=== PATIENT | female | born 1970 | race African-American/Black ===

== ENCOUNTER 2016-03-18 00:51 | Emergency (ER) | payer SELFPAY ==
[2016-03-18] MEDS ORDERED: Aspirin 325 MG TAB ONE (01:08)
[2016-03-18] MEDS ORDERED: Lorazepam 2 MG/ML VIAL ONE (01:08)
[2016-03-18] MEDS ORDERED: Ondansetron HCl/PF 4 MG/2 ML Vial ONE (01:08)
[2016-03-18 01:19] LABS: #Basophils 0.1 thou/uL (0.0-0.2); #Eosinphils 0.3 thou/uL (0.0-0.7); #Monocytes 0.4 thou/uL (0.11-0.59); #Neutrophils 4.2 thou/uL (1.40-6.50); %Eosinophils 3.6 % (0.0-10.0); %Lymphocytes 29.2 % (21.0-51.0); %Monocytes 6.2 % (0.0-10.0); Hematocrit 38.5 % (36.0-47.0); Mean Platelet Volume 8.8 fL (7.4-10.4); Red Blood Cell (RBC) Count 4.22 mill/uL (4.20-5.40)
[2016-03-18 01:37] LABS: Anion Gap 11 mmol/L (10-20); BUN (Urea Nitrogen) 12 mg/dL (7.0-18.7); Calc. Creatinine Clearance 0 mL/min (70-130); Carbon Dioxide 27 mmol/L (22-29); Chloride 106 mmol/L (98-107); Estimated GFR-MDRD 86
[2016-03-18 01:42] LABS: Troponin I Less than 0.010 ng/mL (< 0.028)
--- NOTE | 2016-03-18 02:20 | ERRECORD ---
[facility] HPI CHEST PAIN (01:08 RW) CHIEF COMPLAINT: Patient presents for evaluation of chest pain, ongoing, Patient presents for evaluation of seen here many times for same CC. HISTORIAN: History provided by patient. LOCATION: Symptoms are localized, most severe in substernal area. QUALITY: Described as similar to previous episodes. SEVERITY: Maximum severity of symptoms mild, Currently symptoms are mild, Maximum severity of pain rated as 7/10, Current severity of pain rated as 7/10. TIME COURSE: Patient unable to describe onset of symptoms, There has been no change in the patient's symptoms over time. ASSOCIATED WITH: Associated with nausea, Associated with vomiting. EXACERBATED BY: Patient's condition exacerbated by nothing. RELIEVED BY: Patient's condition relieved by nothing. ROS (01:09 RW) CONSTITUTIONAL: Negative constitutional review of systems. EYES: Negative eye review of systems. ENT: Negative ears, nose, throat review of systems. CARDIOVASCULAR: Historian reports chest pain. RESPIRATORY: Negative respiratory review of systems. GI: Negative gastrointestinal review of systems. GENITOURINARY FEMALE: Negative genitourinary review of systems. MUSCULOSKELETAL: Negative musculoskeletal review of systems. SKIN: Negative skin review of systems. NEUROLOGIC: Negative neurologic review of systems. ENDOCRINE: Negative endocrine review of systems. HEMO/LYMPHATIC: Normal hematologic/lymphatic system review. ALLERGIC/IMMUNOLOGIC: Normal allergy/immunologic system review. PSYCHIATRIC: Historian reports anxiety, reports depression, reports drug abuse. NOTES: All systems reviewed, negative except as described above. PAST MEDICAL HISTORY (01:43 MBOS) MEDICAL HISTORY: Past medical history includes history of human immunodeficiency virus, currently under treatment, Flu vaccine not up to date, Tetanus immunization up to date, Flu vaccine not up to date, : Hep, Past medical history includes gastrointestinal disease, gastroesophageal reflux disease, includes history of obesity, ,includes pulmonary disease, asthma. Past medical history includes history of human immunodeficiency virus, currently under treatment,. FEMALE SURGICAL HISTORY: Surgical history of section x2, Surgical history of LEFT oophorectomy. PSYCHIATRIC HISTORY: Psychiatric history includes, anxiety, depression, Psychiatric history includes previous inpatient &a-1R&a+25V*p+0X*[id number]*c202B*c15G*c2P*p-0X&a-25V&a+1R Name: HemingwayMindi : 1970 F45 MedRec: [id number] AcctNum: [id number] Prepared: Ivanna Mar 18, 2016 06:37 by Interface Page 1 of 3 pMD [facility] EMERGENCY RECORD psychiatric admissions.. Psychiatric history includes, bipolar disorder. SOCIAL HISTORY: Patient denies alcohol use, Patient denies drug use, Patient has no smoking history. KNOWN ALLERGIES No Known Allergies (Unconfirmed) No Known Drug Allergies CURRENT MEDICATIONS (00:59 BHAS) Pepcid: TABLET : Strength - 20 mg : ORAL Patient Dose: 1 tab(s) Oral 2 times a day (before meals). K-Dur: TABLET, EXT RELEASE, PARTICLES/CRYSTALS : Strength - 10 mEq : ORAL Patient Dose: 1 tab(s) Oral once a day (in the morning). Motrin: TABLET : Strength - 400 mg : ORAL Patient Dose: 1 tab(s) Oral every 6 hours PRN. Zofran ODT: TABLET,DISINTEGRATING : Strength - 4 mg : ORAL Patient Dose: 1 tab(s) Oral every 6 hours PRN. Flexeril: TABLET : Strength - 5 mg : ORAL Patient Dose: 1 tab(s) Oral every 8 hours PRN.TAKE NEEDED FOR MUSCLE PAIN OR SPASMS. Phenergan: TABLET : Strength - 25 mg : ORAL Patient Dose: 1 tab(s) Oral every 6 hours PRN. meclizine: CAPSULE : Strength - 25 mg : ORAL Patient Dose: 1 tab(s) Oral every 6 hours PRN. Medrol (Joel): TABLET, DOSE PACK : Strength - 4 mg : ORAL Patient Dose: 4 mg Oral See Notes. Keflex: CAPSULE : Strength - 250 mg : ORAL Patient Dose: 1 cap(s) Oral 4 times a day. Pepcid: TABLET : Strength - 40 mg : ORAL Patient Dose: 1 tab(s) Oral once a day (in the morning). Trileptal: TABLET : Strength - 300 mg : ORAL Patient Dose: Unknown.unknown dose. VITAL SIGNS (00:54 BHAS) VITAL SIGNS: BP: 140/74, Pulse: 81, Resp: 19, Temp: 99.3 (Oral), Pain: 6, O2 sat: 99, Time: 03/18/2016 00:54. PHYSICAL EXAM (01:10 RWAG) &a-1R&a+25V*p+0X*[id number]*c202B*c15G*c2P*p-0X&a-25V&a+1R Name: Mindi Santo : 1970 F45 MedRec: [id number] AcctNum: [id number] Prepared: Ivanna Mar 18, 2016 06:37 by Interface Page 2 of 3 pMD [facility] EMERGENCY RECORD CONSTITUTIONAL: Vital Signs Reviewed. HEAD: Head exam normal. EYES: Eye exam normal. ENT: ENT exam normal. NECK: Neck exam normal. RESPIRATORY CHEST: Respiratory and chest exam normal. CARDIOVASCULAR: Cardiovascular assessment normal. ABDOMEN FEMALE: Abdominal exam normal. BACK: Back exam normal. UPPER EXTREMITY: Upper extremity exam normal. LOWER EXTREMITY: Lower extremity exam normal. NEURO: Neuro exam normal. SKIN: Skin exam normal. LYMPHATIC: Lymphatic exam normal. PSYCHIATRIC: Psychiatric exam normal. EKG INTERPRETATION (:) 12 LEAD EKG INTERPRETATION: 12 lead EKG interpreted by Emergency Department Physician at time of study, 12 lead EKG shows normal sinus rhythm, Rate (beats per minute): 79, with no ectopics, Compared with previous EKG from, Interpretation: normal EKG, Conduction normal, ST segments normal, T waves, inverted, Leads affected: III, [place] normal. MEDICATION ADMINISTRATION SUMMARY Drug Name: aspirin oral, Dose Ordered: 324 mg, Route: Oral, Status: Given, Time: :03/18/2016, Drug Name: Ativan injection, Dose Ordered: 2 mg, Route: IV Push, Status: Given, Time: 03/18/2016, Drug Name: Zofran intravenous, Dose Ordered: 8 mg, Route: IV Push, Status: Given, Time: :03/18/2016, Detailed record available in Medication Service section. PROBLEM LIST No recorded problems DIAGNOSIS (: RW) FINAL: PRIMARY: Intercostal chest pain. PRESCRIPTION No recorded prescriptions DISPOSITION PATIENT: Disposition Type: Discharge, Disposition: *Discharge Home, Disposition Transport: Car, Condition: Improved. (:45 RW) Patient left the department. (02:13 MBOS) Beatty: BHAS=VENKAT Sheppard, Chris MBOS=VENKAT Hopkins, Harper RWAG=MD Keith, Toby &a-1R&a+25V*p+0X*[id number]*c202B*c15G*c2P*p-0X&a-25V&a+1R Name: Mindi Santo : 1970 F45 MedRec: [id number] AcctNum: [id number] Prepared: Ivanna Mar 18, 2016 06:37 by Interface Page 3 of 3 pMD MTDD
--- NOTE | 2016-03-18 02:23 | PICIS ---
[facility] EMERGENCY RECORD TRIAGE (SatMar 18, 2016 00:58 BHAS) PATIENT: NAME: Mindi Santo, AGE: 45, GENDER: female, : Sat1970, TIME OF GREET: SatMar 18, 2016 00:52, PREFERRED LANGUAGE: Latvian, ETHNICITY: Not or , ECODE BILLING MAP: [facility] ER, SSN: [id number], Zip Code: [address], KG WEIGHT: [phone], PHONE: , , , PERSON ID: [id number], PCP: Wilbur. (SatMar 18, 2016 00:58 BHAS) COMPLAINT: CHEST PAINS; NAUSEA. (SatMar 18, 2016 00:58 BHAS) ADMISSION: URGENCY: 3 Urgent, ADMISSION SOURCE: Home, TRANSPORT: CAR, BED: ER -03. (SatMar 18, 2016 00:58 BHAS) ASSESSMENT: Assessment: patient complaining of chest pain and abdominal pain. Patient states that one of her medications makes her feel bad. She is also expressing concern over her T-cell levels and wants to be checked for cancer. (01:43 MBOS) IMMUNIZATIONS: Flu vaccine not up to date, Tetanus not up to date, Pneumococcal vaccine not up to date. (01:43 MBOS) SIRS SCORING: Heart Rate 55-109 (0), Temp range 96.8-101.1 (0), respiratory rate 12-24 (0), Mental Status altered: no (0), Infection or Suspected Infection: No. (01:43 MBOS) PROVIDERS: TRIAGE NURSE: Chris Sheppard RN. (SatMar 18, 2016 00:58 BHAS) VITAL SIGNS: BP 140/74, Pulse 81, Resp 19, Temp 99.3, (Oral), Pain 6, O2 Sat 99, Time 03/18/2016 00:54. (00:54 BHAS) PREVIOUS VISIT ALLERGIES: No Known Drug Allergies. (SatMar 18, 2016 00:58 BHAS) No Known Drug Allergies. (01:43 MBOS) KNOWN ALLERGIES No Known Allergies (Unconfirmed) No Known Drug Allergies CURRENT MEDICATIONS (00:59 BHAS) Pepcid: TABLET : Strength - 20 mg : ORAL Patient Dose: 1 tab(s) Oral 2 times a day (before meals). K-Dur: TABLET, EXT RELEASE, PARTICLES/CRYSTALS : Strength - 10 mEq : ORAL Patient Dose: 1 tab(s) Oral once a day (in the morning). Motrin: TABLET : Strength - 400 mg : ORAL Patient Dose: 1 tab(s) Oral every 6 hours PRN. Zofran ODT: TABLET,DISINTEGRATING : Strength - 4 mg : ORAL Patient Dose: 1 tab(s) Oral every 6 hours PRN. Flexeril: TABLET : Strength - 5 mg : ORAL Patient Dose: 1 tab(s) Oral every 8 hours PRN.TAKE NEEDED FOR MUSCLE PAIN OR SPASMS. &a-1R&a+25V*p+0X*s0431C*c202B*c15G*c2P*p-0X&a-25V&a+1R Name: Mindi Santo : 1970 F45 MedRec: [id number] AcctNum: [id number] Prepared: Ivanna Mar 18, 2016 06:43 by Interface Page 1 of 9 pMD [facility] EMERGENCY RECORD Phenergan: TABLET : Strength - 25 mg : ORAL Patient Dose: 1 tab(s) Oral every 6 hours PRN. meclizine: CAPSULE : Strength - 25 mg : ORAL Patient Dose: 1 tab(s) Oral every 6 hours PRN. Medrol (Joel): TABLET, DOSE PACK : Strength - 4 mg : ORAL Patient Dose: 4 mg Oral See Notes. Keflex: CAPSULE : Strength - 250 mg : ORAL Patient Dose: 1 cap(s) Oral 4 times a day. Pepcid: TABLET : Strength - 40 mg : ORAL Patient Dose: 1 tab(s) Oral once a day (in the morning). Trileptal: TABLET : Strength - 300 mg : ORAL Patient Dose: Unknown.unknown dose. VITAL SIGNS (00:54 BHAS) VITAL SIGNS: BP: 140/74, Pulse: 81, Resp: 19, Temp: 99.3 (Oral), Pain: 6, O2 sat: 99, Time: 03/18/2016 00:54. NURSING ASSESSMENT: ABDOMEN (01:00 MBOS) ABDOMEN: Abdomen assessment findings include abdomen symmetrical, Abdomen soft, non-tender, Bowel sound normal, Associated with nausea, Associated with vomiting, history of vomiting, Number of times: 3. SAFETY: Side rails up, Cart/Stretcher in lowest position, Family at bedside, Call light within reach, Hospital ID band on. NURSING ASSESSMENT: RESPIRATORY /CHEST (01:00 MBOS) CONSTITUTIONAL: Patient arrives ambulatory, Gait steady, History obtained from patient, Patient appears comfortable, Patient cooperative, Patient alert, Oriented to person, place and time, Skin warm, Skin dry, Skin normal in color, Mucous membranes pink, Mucous membranes moist, Patient is well-groomed, Patient complains of chest pain, abdominal pain, vomiting, Ongoing symptoms. PAIN: on a scale 0-10 patient rates pain as 6. RESPIRATORY/CHEST: Breath sounds clear, Respiratory assessment findings include respiratory effort easy, Respirations regular, Conversing normally, Neck and chest exam findings include trachea midline, Chest expansion equal, Chest movement symmetrical, no signs of distress. ENT: Ear assessment findings include ear normal to inspection, Nasal assessment findings include nose normal to inspection, Mouth and throat assessment findings include mouth inspection normal. SAFETY: Side rails up, Cart/Stretcher in lowest position, Call light within reach, Hospital ID band on. &a-1R&a+25V*p+0X*p2217A*c202B*c15G*c2P*p-0X&a-25V&a+1R Name: Mindi Santo : 1970 F45 MedRec: [id number] AcctNum: [id number] Prepared: Ivanna Mar 18, 2016 06:43 by Interface Page 2 of 9 [facility] EMERGENCY RECORD NURSING PROCEDURE: BEDSIDE RADIOLOGY (01:39 CCRI) BEDSIDE RADIOLOGY: Bedside radiology performed by CC, Portable chest x-ray performed. NURSING PROCEDURE: DRUG ABUSE TREATMENT SPECIALIST (01:00 MBOS) PATIENT IDENTIFIER: Patient actively involved in identification process, Patient's identity verified by patient stating name, Patient's identity verified by patient stating date, Patient's identity verified by hospital ID bracelet. DRUG ABUSE TREATMENT SPECIALIST: Cardiac monitoring indicated for complaint of chest pain, Patient placed on secured entrance monitor, Patient placed on non-invasive blood pressure monitor, with disposable blood pressure cuff applied, Patient placed on continuous pulse oximetry, Adult/pediatric oxisensor applied, Oxygen saturation 99%. SAFETY: Side rails up, Cart/Stretcher in lowest position, Call light within reach, Hospital ID band on. NURSING PROCEDURE: DISCHARGE NOTE (01:57 MBOS) DISCHARGE: Patient discharged to home, ambulating without assistance, family driving, unaccompanied, Summary of Care printed/ provided, Discharge instructions given to patient, Simple or moderate discharge teaching performed, Above person(s) verbalized understanding of discharge instructions and follow-up care, Patient treated and evaluated by physician. NURSING PROCEDURE: EKG CHART (01:33 MBOS) PATIENT IDENTIFIER: Patient actively involved in identification process, Patient's identity verified by patient stating name, Patient's identity verified by patient stating date, Patient's identity verified by hospital ID bracelet. EKG: EKG indicated for complaint of chest pain, 12 lead EKG performed on the left chest, done by VENKAT Perez, first EKG. FOLLOW-UP: After procedure, EKG for interpretation given to Dr. Parker. SAFETY: Side rails up, Cart/Stretcher in lowest position, Call light within reach, Hospital ID band on. ORDER DETAILS Order Name: B type Natriuretic Peptide, Status: Active, Time: 01:05 03/18/2016, User: VIKY, - Ordered for: MD Parker Richard, - Entered by: MD Parker Richard - Ivanna Mar 18, 2016 01:05, - Quantity: 1, Order Name: Basic Metabolic Panel, Status: Active, Time: 01:05 03/18/2016, User: VIKY, - Ordered for: MD Parker Richard, - Entered by: MD Parker Richard - Ivanna Mar 18, 2016 01:05, - Quantity: 1, Order Name: Cardiac Profile w/CKMB & Troponin - I, Status: Active, &a-1R&a+25V*p+0X*x3533J*c202B*c15G*c2P*p-0X&a-25V&a+1R Name: Hansa Mindi F : 1970 F45 MedRec: [id number] AcctNum: [id number] Prepared: Ivanna Mar 18, 2016 06:43 by Interface Page 3 of 9 pMD [facility] EMERGENCY RECORD Time: 01:05 03/18/2016, User: VIKY, - Ordered for: MD Parker Richard, - Entered by: MD Parker Richard - [place] Mar 18, 2016 01:05, - Quantity: 1, Order Name: CBC with Differential, Status: Active, Time: 01:05 03/18/2016, User: VIKY, - Ordered for: MD Parker Richard, - Entered by: MD Parker Richard - [place] Mar 18, 2016 01:05, - Quantity: 1, Order Name: EKG 12 Lead in Emergency Room, Status: Active, Time: 01:05 03/18/2016, User: VIKY, - Ordered for: MD Parker Richard, - Entered by: MD Parker Richard - [place] Mar 18, 2016 01:05, - Quantity: 1, Order Name: SALINE LOCK, Status: Done, Time: :18 03/18/2016, User: ARTIE, - Ordered for: MD Parker Richard, - Entered by: MD Parker Richard - [place] Mar 18, 2016 01:05, - Quantity: 1, Order Name: XR Chest 1 View Portable, Status: Active, Time: 01:05 03/18/2016, User: VIKY, - Ordered for: MD Parker Richard, - Entered by: MD Parker Richard - [place] Mar 18, 2016 01:05, - Quantity: 1. MEDICATION ADMINISTRATION SUMMARY Drug Name: aspirin oral, Dose Ordered: 324 mg, Route: Oral, Status: Given, Time: :18 03/18/2016, Drug Name: Ativan injection, Dose Ordered: 2 mg, Route: IV Push, Status: Given, Time: 18 03/18/2016, Drug Name: Zofran intravenous, Dose Ordered: 8 mg, Route: IV Push, Status: Given, Time: :18 03/18/2016, Detailed record available in Medication Service section. MEDICATION SERVICE ( [facility]) aspirin oral: Order: aspirin oral (aspirin) - Dose: 324 mg : Oral Schedule: Now Ordered by: Toby Parker MD Entered by: MD Ivanna Harris Mar 18, 2016 01:06 , Acknowledged by: VENKAT Salinas Mar 18, 2016 01:07 Documented as given by: VENKAT Salinas Mar 18, 2016 01:18 Patient, Medication, Dose, Route and Time verified prior to administration. Amount given: 325mg, Site: Medication administered P.O., Correct patient, time, route, dose and medication confirmed prior to administration, Patient advised of actions and side-effects prior to administration, Allergies confirmed and medications reviewed prior to administration, Patient tolerated procedure well, Friend at bedside. &a-1R&a+25V*p+0X*w4839J*c202B*c15G*c2P*p-0X&a-25V&a+1R Name: Mindi Santo : 1970 F45 MedRec: [id number] AcctNum: [id number] Prepared: Ivanna Mar 18, 2016 06:43 by Interface Page 4 of 9 pMD [facility] EMERGENCY RECORD Ativan injection: Order: Ativan injection (lorazepam) - Dose: 2 mg : IV Push Schedule: Now Ordered by: Toby Parker MD Entered by: MD Ivanna Harris Mar 18, 2016 01:07 , Acknowledged by: VENKAT Salinas Mar 18, 2016 01:08 Documented as given by: VENKAT Salinas Mar 18, 2016 01:18 Patient, Medication, Dose, Route and Time verified prior to administration. Amount given: 2mg, IV SITE #1 IVP, initial medication, Slowly, Awake and alert- acceptable, Catheter placement confirmed via flush prior to administration, IV site without signs or symptoms of infiltration during medication administration, No swelling during administration, No drainage during administration, IV flushed after administration, Correct patient, time, route, dose and medication confirmed prior to administration, Patient advised of actions and side-effects prior to administration, Allergies confirmed and medications reviewed prior to administration, Patient tolerated procedure well, Patient in position of comfort, Side rails up, Cart in lowest position, Family at bedside. Zofran intravenous: Order: Zofran intravenous (ondansetron HCl) - Dose: 8 mg : IV Push Schedule: Now Ordered by: Toby Parker MD Entered by: MD Ivanna Harris Mar 18, 2016 01:07 , Acknowledged by: VENKAT Salinas Mar 18, 2016 01:07 Documented as given by: VENKAT Salinas Mar 18, 2016 01:18 Patient, Medication, Dose, Route and Time verified prior to administration. Amount given: 8mg, IV SITE #1 IVP, initial medication, Slowly, Catheter placement confirmed via flush prior to administration, IV site without signs or symptoms of infiltration during medication administration, No swelling during administration, No drainage during administration, IV flushed after administration, Correct patient, time, route, dose and medication confirmed prior to administration, Patient advised of actions and side-effects prior to administration, Allergies confirmed and medications reviewed prior to administration, Patient tolerated procedure well, Patient in position of comfort, Side rails up, Cart in lowest position, Family at bedside. HPI CHEST PAIN (:08 [facility]) CHIEF COMPLAINT: Patient presents for evaluation of chest pain, ongoing, Patient presents for evaluation of seen here many times for same CC. HISTORIAN: History provided by patient. LOCATION: Symptoms are localized, most severe in substernal area. QUALITY: Described as similar to previous episodes. SEVERITY: Maximum severity of symptoms mild, Currently symptoms are mild, Maximum severity of pain &a-1R&a+25V*p+0X*u1754G*c202B*c15G*c2P*p-0X&a-25V&a+1R Name: Mindi Santo : 1970 F45 MedRec: [id number] AcctNum: [id number] Prepared: Ivanna Mar 18, 2016 06:43 by Interface Page 5 of 9 pMD [facility] EMERGENCY RECORD rated as 7/10, Current severity of pain rated as 7/10. TIME COURSE: Patient unable to describe onset of symptoms, There has been no change in the patient's symptoms over time. ASSOCIATED WITH: Associated with nausea, Associated with vomiting. EXACERBATED BY: Patient's condition exacerbated by nothing. RELIEVED BY: Patient's condition relieved by nothing. ROS (:09 [facility]) CONSTITUTIONAL: Negative constitutional review of systems. EYES: Negative eye review of systems. ENT: Negative ears, nose, throat review of systems. CARDIOVASCULAR: Historian reports chest pain. RESPIRATORY: Negative respiratory review of systems. GI: Negative gastrointestinal review of systems. GENITOURINARY FEMALE: Negative genitourinary review of systems. MUSCULOSKELETAL: Negative musculoskeletal review of systems. SKIN: Negative skin review of systems. NEUROLOGIC: Negative neurologic review of systems. ENDOCRINE: Negative endocrine review of systems. HEMO/LYMPHATIC: Normal hematologic/lymphatic system review. ALLERGIC/IMMUNOLOGIC: Normal allergy/immunologic system review. PSYCHIATRIC: Historian reports anxiety, reports depression, reports drug abuse. NOTES: All systems reviewed, negative except as described above. PAST MEDICAL HISTORY (01:43 MBOS) MEDICAL HISTORY: Past medical history includes history of human immunodeficiency virus, currently under treatment, Flu vaccine not up to date, Tetanus immunization up to date, Flu vaccine not up to date, : Hep, Past medical history includes gastrointestinal disease, gastroesophageal reflux disease, includes history of obesity, ,includes pulmonary disease, asthma. Past medical history includes history of human immunodeficiency virus, currently under treatment,. FEMALE SURGICAL HISTORY: Surgical history of section x2, Surgical history of LEFT oophorectomy. PSYCHIATRIC HISTORY: Psychiatric history includes, anxiety, depression, Psychiatric history includes previous inpatient psychiatric admissions.. Psychiatric history includes, bipolar disorder. SOCIAL HISTORY: Patient denies alcohol use, Patient denies drug use, Patient has no smoking history. PHYSICAL EXAM (01:10 RWAG) CONSTITUTIONAL: Vital Signs Reviewed. HEAD: Head exam normal. EYES: Eye exam normal. ENT: ENT exam normal. &a-1R&a+25V*p+0X*y3171Y*c202B*c15G*c2P*p-0X&a-25V&a+1R Name: Mindi Santo : 1970 F45 MedRec: [id number] AcctNum: [id number] Prepared: Ivanna Mar 18, 2016 06:43 by Interface Page 6 of 9 pMD [facility] EMERGENCY RECORD NECK: Neck exam normal. RESPIRATORY CHEST: Respiratory and chest exam normal. CARDIOVASCULAR: Cardiovascular assessment normal. ABDOMEN FEMALE: Abdominal exam normal. BACK: Back exam normal. UPPER EXTREMITY: Upper extremity exam normal. LOWER EXTREMITY: Lower extremity exam normal. NEURO: Neuro exam normal. SKIN: Skin exam normal. LYMPHATIC: Lymphatic exam normal. PSYCHIATRIC: Psychiatric exam normal. EVENTS TRANSFER: Triage to Emergency Emergency Room -03. (00:58 BHAS) Removed from Emergency Emergency Room -03. (02:13 MBOS) EKG INTERPRETATION (:11 RWAG) 12 LEAD EKG INTERPRETATION: 12 lead EKG interpreted by Emergency Department Physician at time of study, 12 lead EKG shows normal sinus rhythm, Rate (beats per minute): 79, with no ectopics, Compared with previous EKG from, Interpretation: normal EKG, Conduction normal, ST segments normal, T waves, inverted, Leads affected: III, [place] normal. PROBLEM LIST No recorded problems DIAGNOSIS (01:45 RWAG) FINAL: PRIMARY: Intercostal chest pain. DISPOSITION PATIENT: Disposition Type: Discharge, Disposition: *Discharge Home, Disposition Transport: Car, Condition: Improved. (01:45 RWAG) Patient left the department. (02:13 MBOS) INSTRUCTION (01:46 RWAG) FOLLOWUP: Follow up with Primary Care Physician in 2-3 days. SPECIAL: Follow-up with your PCP Tylenol or Advil for Pain. PRESCRIPTION No recorded prescriptions IMAGING *DISCHARGE INSTRUCTIONS RECEIPT: Image captured from scanner. (02:12 MBOS) *SUPPLY CHARGE SHEET: Image captured from scanner. (02:13 MBOS) ADMIN (06:32 RWAG) DIGITAL SIGNATURE: MD Parker Richard. &a-1R&a+25V*p+0X*c3719F*c202B*c15G*c2P*p-0X&a-25V&a+1R Name: Mindi Santo : 1970 F45 MedRec: [id number] AcctNum: [id number] Prepared: Ivanna Mar 18, 2016 06:43 by Interface Page 7 of 9 pMD [facility] EMERGENCY RECORD RESULTS LABORATORY: CBC with Differential Collection DT: Ivanna Mar 18, 2016 01:18, White Blood Cell (WBC) Count 7.0 thou/uL, Range (4.8-10.8), Red Blood Cell (RBC) Count 4.22 mill/uL, Range (4.20-5.40), Hemoglobin 12.6 g/dL, Range (12.0-16.0), Hematocrit 38.5 %, Range (36.0-47.0), Mean Corpuscular Volume 91.4 fl, Range (81.0-99.0), Mean Corpuscular Hemoglobin 29.9 pg, Range (27.0-31.0), Mean Corpuscular HGB CONC 32.7 g/dL, Range (32.0-36.0), RBC Distribution Width 12.6 %, Range (11.5-14.5), Platelet Count 262 thou/uL, Range (130-400), Mean Platelet Volume 8.8 fL, Range (7.4-10.4), %Neutrophils 60.0 %, Range (42.0-75.0), %Lymphocytes 29.2 %, Range (21.0-51.0), %Monocytes 6.2 %, Range (0.0-10.0), %Eosinophils 3.6 %, Range (0.0-10.0), %Basophils 1.0 %, Range (0.0-1.0), #Neutrophils 4.2 thou/uL, Range (1.40-6.50), #Lymphocytes 2.0 thou/uL, Range (1.20-3.40), #Monocytes 0.4 thou/uL, Range (0.11-0.59), #Eosinphils 0.3 thou/uL, Range (0.0-0.7), #Basophils 0.1 thou/uL, Range (0.0-0.2). (01:34 [facility]) Basic Metabolic Panel Collection DT: [place] Mar 18, 2016 01:18, Sodium 140 mmol/L, Range (136-145), Potassium 3.7 mmol/L, Range (3.5-5.1), Chloride 106 mmol/L, Range (98-107), Carbon Dioxide 27 mmol/L, Range (22-29), Anion Gap 11 mmol/L, Range (10-20), BUN (Urea Nitrogen) 12 mg/dL, Range (7.0-18.7), Creatinine 0.86 mg/dL, Range (0.6-1.1), Estimated GFR-MDRD 86 , Reference Range for Estimated GFR: Greater than 90, mL/min/1.73 m2 NOTE: The MDRD equation has not been validated for use, with the elderly (over 70 years of age), women, patients with, serious comorbid condition or persons with extremes of body size, muscle, mass, or nutritional status. , *Glucose 114 - H mg/dL, Range (70-105), Calcium 9.0 mg/dL, Range (7.8-10.44). (01:39 [facility]) Cardiac Profile w/CKMB & TropI Collection DT: [place] Mar 18, 2016 01:18, CKMB 0.8 ng/mL, Range (0-6.6), Troponin I Less than 0.010 ng/mL, Range (< 0.028), Reference Range , 0.00 - 0.028 ng/mL Negative 0.029 - 0.29 ng/mL , Indeterminate Greater or Equal to 0.3 ng/mL Strongly suggests [place] &a-1R&a+25V*p+0X*w1418Q*c202B*c15G*c2P*p-0X&a-25V&a+1R Name: Mindi Santo : 1970 5 MedRec: [id number] AcctNum: [id number] Prepared: Ivanna Mar 18, 2016 06:43 by Interface Page 8 of 9 pMD [facility] EMERGENCY RECORD , . (01:44 RWAG) B type Natriuretic Peptide Collection DT: Ivanna Mar 18, 2016 01:18, B type Natriuretic Peptide Less than 10.0 pg/mL, Range (0-100). (01:49 RWAG) Beat[place]: BHAS=VENKAT Sheppard, Chris CCRI=CHRIS Lance Clemente MBOS=VENKAT Hopkins Marie RWAG=MD Keith, Toby &a-1R&a+25V*p+0X*n7177A*c202B*c15G*c2P*p-0X&a-25V&a+1R Name: Mindi Santo : 1970 5 MedRec: [id number] AcctNum: [id number] Prepared: Ivanna Mar 18, 2016 06:43 by Interface Page 9 of 9 pMD MTDD
--- NOTE | 2016-03-18 08:45 | RAD ---
EXAM: ONE VIEW CHEST: HISTORY: Chest pain. COMPARISON: 01/17/15, 10/14/15. FINDINGS: Normal cardiac silhouette. The pulmonary vessels and pulmonary hilum are normal. Costophrenic angl es are clear. No masses or consolidation. No pneumothorax or osseous abnormalities. IMPRESSION: No acute cardiopulmonary process. POS: [facility]
== END 2016-03-18 01:57 | disposition home or self-care (01) ==
LOC: NAV ERS 00:51
DX: R07.82 Intercostal pain (principal); Z21 Asymptomatic human immunodeficiency virus [HIV] infection status; K21.9 Gastro-esophageal reflux disease without esophagitis; E66.9 Obesity, unspecified; J45.909 Unspecified asthma, uncomplicated; F41.9 Anxiety disorder, unspecified; F31.9 Bipolar disorder, unspecified
CPT/HCPCS: 36415; 71010; 80048; 82553; 83880; 84484; 85025; 93005; 96374; 96375; J2060; J2405

== ENCOUNTER 2016-05-06 09:07 | Emergency (ER) | payer SELFPAY | END 2016-05-06 09:41 | disposition home or self-care (01) | LOC: NAV ERS 09:07 | DX: M77.11 Lateral epicondylitis, right elbow (principal); R05 Cough; M54.5 Low back pain; K21.9 Gastro-esophageal reflux disease without esophagitis; E66.9 Obesity, unspecified; J45.909 Unspecified asthma, uncomplicated; F31.9 Bipolar disorder, unspecified; Z79.899 Other long term (current) drug therapy | CPT/HCPCS: 99283 ==

== ENCOUNTER 2016-08-06 09:57 | Emergency (ER) | payer SELFPAY ==
[2016-08-06 11:11] LABS: CKMB 0.9 ng/mL (0-6.6); Troponin I Less than 0.010 ng/mL (< 0.028)
[2016-08-06 11:16] LABS: ALT (SGPT) 17 U/L (8-55); AST (SGOT) 17 U/L (5-34); Albumin 3.9 g/dL (3.5-5.0); Alkaline Phosphatase 84 U/L (40-150); Anion Gap 16 mmol/L (10-20); BUN (Urea Nitrogen) 9 mg/dL (7.0-18.7); Bilirubin, Total 0.5 mg/dL (0.2-1.2); Calc. Creatinine Clearance 0 mL/min (70-130); Carbon Dioxide 26 mmol/L (22-29); Chloride 103 mmol/L (98-107); Estimated GFR-MDRD Greater than 90; Globulin 3.7 g/dL (2.4-3.5); Glucose 94 mg/dL (70-105); Potassium 3.7 mmol/L (3.5-5.1); Protein, Total 7.6 g/dL (6.0-8.3); Sodium 141 mmol/L (136-145)
[2016-08-06 11:22] LABS: Hemoglobin 12.6 g/dL (12.0-16.0); Mean Corpuscular HGB CONC 33.4 g/dL (32.0-36.0); Mean Corpuscular Hemoglobin 29.1 pg (27.0-31.0); Mean Platelet Volume 8.3 fL (7.4-10.4); Platelet Count 251 thou/uL (130-400); RBC Distribution Width 12.2 % (11.5-14.5); Red Blood Cell (RBC) Count 4.33 mill/uL (4.20-5.40); White Blood Cell (WBC) Count 8.2 thou/uL (4.8-10.8)
[2016-08-06 11:23] LABS: Lymphocytes 26 % (21-51); MDiff Complete? YES; Monocytes 7 % (0-10); Neutrophil 67 % (42-75); PLT Morphology Comment Appears Adequate
--- NOTE | 2016-08-06 12:48 | RAD ---
CHEST 2 VIEWS: HISTORY: Headache and chest wall pain. COMPARISON: Chest 1 view 03/18/16. FINDINGS: Lungs are clear. No pneumothorax or effusion. Cardiac silhouette and mediastinal contours are with in normal limits. IMPRESSION: No acute cardiopulmonary process. POS: [facility]
== END 2016-08-06 12:00 | disposition home or self-care (01) ==
LOC: NAV ERS 09:57
DX: S29.011A Strain of muscle and tendon of front wall of thorax, initial encounter (principal); K21.9 Gastro-esophageal reflux disease without esophagitis; J45.909 Unspecified asthma, uncomplicated; F31.9 Bipolar disorder, unspecified; F41.9 Anxiety disorder, unspecified; Z21 Asymptomatic human immunodeficiency virus [HIV] infection status; Z79.899 Other long term (current) drug therapy; X50.0XXA Overexertion from strenuous movement or load, initial encounter
CPT/HCPCS: 71020; 80053; 82553; 83880; 84484; 85025; 93005

== ENCOUNTER 2016-08-22 00:18 | Emergency (ER) | payer SELFPAY ==
[2016-08-22 00:50] LABS: Clarity Clear (Clear); Glucose, Urine (Dipstick) Negative (Negative); Leukocyte Negative (Negative); Nitrite Negative (Negative); Protein, Urine (Dipstick) Negative (Neg-Trace); Specific Gravity, Urine 1.015 (1.005-1.030)
[2016-08-22 00:51] LABS: Bacteria/HPF None Seen HPF (None Seen); Bilirubin Negative (Negative); Blood, Urine Small (Negative); WBC/HPF None Seen HPF (0-3)
[2016-08-22 01:06] LABS: #Basophils 0.1 thou/uL (0.0-0.2); #Eosinphils 0.2 thou/uL (0.0-0.7); #Lymphocytes 1.6 thou/uL (1.20-3.40); #Monocytes 0.5 thou/uL (0.11-0.59); #Neutrophils 5.5 thou/uL (1.40-6.50); %Basophils 0.7 % (0.0-1.0); %Eosinophils 3.1 % (0.0-10.0); %Lymphocytes 20.2 % (21.0-51.0); %Monocytes 6.5 % (0.0-10.0); %Neutrophils 69.6 % (42.0-75.0); Hemoglobin 11.9 g/dL (12.0-16.0); Mean Corpuscular HGB CONC 32.1 g/dL (32.0-36.0); Mean Corpuscular Hemoglobin 28.7 pg (27.0-31.0); Mean Corpuscular Volume 89.3 fl (81.0-99.0); Mean Platelet Volume 8.3 fL (7.4-10.4); Platelet Count 173 thou/uL (130-400); RBC Distribution Width 12.6 % (11.5-14.5); Red Blood Cell (RBC) Count 4.17 mill/uL (4.20-5.40); White Blood Cell (WBC) Count 7.9 thou/uL (4.8-10.8)
[2016-08-22] MEDS ORDERED: Prochlorperazine 10 MG/2 ML VIAL ONE (01:18)
[2016-08-22] MEDS ORDERED: Cyclobenzaprine 10 MG TAB ONE (01:18)
[2016-08-22] MEDS ORDERED: diphenhydrAMINE HCl 50 MG/ML 1 ML VIAL ONE (01:19)
[2016-08-22] MEDS ORDERED: Ketorolac Tromethamine 30 MG/ML VIAL ONE (01:19)
[2016-08-22] MEDS ORDERED: Sodium Chloride 0.9% 1,000 ML ONE (01:23)
[2016-08-22] MEDS ORDERED: Acetaminophen 500 MG TAB ONE (01:25)
[2016-08-22 01:31] LABS: ALT (SGPT) 11 U/L (8-55); AST (SGOT) 16 U/L (5-34); Albumin 3.1 g/dL (3.5-5.0); Alkaline Phosphatase 61 U/L (40-150); BUN (Urea Nitrogen) 8 mg/dL (7.0-18.7); Bilirubin, Total 0.5 mg/dL (0.2-1.2); Calc. Creatinine Clearance 0 mL/min (70-130); Calcium 7.1 mg/dL (7.8-10.44); Carbon Dioxide 22 mmol/L (22-29); Estimated GFR-MDRD Greater than 90; Globulin 4.1 g/dL (2.4-3.5); Glucose 90 mg/dL (70-105); Protein, Total 7.2 g/dL (6.0-8.3)
[2016-08-22 01:45] LABS: Pregnancy Test - Urine (BHCG) Negative (NEGATIVE); Pregu Control Background? CLEAR/WHITE (CLR/WHITE); Pregu Control Bar Appear? YES (CONTROL BAR); Specific Gravity 1.015 (1.002-1.036)
[2016-08-22 01:54] LABS: Chloride 104 mmol/L (98-107); Potassium 3.4 mmol/L (3.5-5.1)
[2016-08-22 01:57] LABS: Sodium 137 mmol/L (136-145)
[2016-08-22 01:58] LABS: Anion Gap 14 mmol/L (10-20)
== END 2016-08-22 02:45 | disposition home or self-care (01) ==
LOC: NAV ERS 00:18
DX: R51 Headache (principal); R11.10 Vomiting, unspecified; M54.9 Dorsalgia, unspecified; G89.29 Other chronic pain; B20 Human immunodeficiency virus [HIV] disease; K21.9 Gastro-esophageal reflux disease without esophagitis; E66.9 Obesity, unspecified; J45.909 Unspecified asthma, uncomplicated; F41.9 Anxiety disorder, unspecified; F31.9 Bipolar disorder, unspecified; Z79.899 Other long term (current) drug therapy
CPT/HCPCS: 36415; 80053; 81003; 81015; 81025; 85025; 96361; 96374; 96375; J0780; J1200; J1885; J7050

== ENCOUNTER 2016-09-08 11:58 | Emergency (ER) | payer SELFPAY ==
[2016-09-08] MEDS ORDERED: Ondansetron ODT 4 MG TAB ONE (12:31)
[2016-09-08 12:34] LABS: Bilirubin Negative (Negative); Blood, Urine Trace (Negative); Clarity Clear (Clear); Glucose, Urine (Dipstick) Negative (Negative); Leukocyte Negative (Negative); Nitrite Negative (Negative); Protein, Urine (Dipstick) Negative (Neg-Trace)
[2016-09-08 12:49] LABS: Bacteria/HPF None Seen HPF (None Seen); Crystals/HPF RARE AMORPH URATES HPF (Negative); RBC/HPF 0-3 HPF (0-3); WBC/HPF None Seen HPF (0-3)
--- NOTE | 2016-09-08 14:19 | RAD ---
SINUSES THREE VIEWS HISTORY: Cough. Sinus pain and pressure. FINDINGS: The frontal sinuses are somewhat hypoplastic. Barker' view is somewhat underpenetrated, but I see n o fluid or mucosal change within the maxillary sinuses. IMPRESSION: Unremarkable sinus series. POS: [facility]
== END 2016-09-08 13:20 | disposition home or self-care (01) ==
LOC: NAV ERS 11:58
DX: S16.1XXA Strain of muscle, fascia and tendon at neck level, initial encounter (principal); S39.011A Strain of muscle, fascia and tendon of abdomen, initial encounter; J20.9 Acute bronchitis, unspecified; R11.2 Nausea with vomiting, unspecified; B20 Human immunodeficiency virus [HIV] disease; K21.9 Gastro-esophageal reflux disease without esophagitis; E66.9 Obesity, unspecified; J45.909 Unspecified asthma, uncomplicated; F41.9 Anxiety disorder, unspecified; F31.9 Bipolar disorder, unspecified; X58.XXXA Exposure to other specified factors, initial encounter
CPT/HCPCS: 36416; 70220; 81003; 81015; Q0162

== ENCOUNTER 2016-09-14 22:32 | Emergency (ER) | payer SELFPAY ==
[2016-09-14 23:13] LABS: #Basophils 0.1 thou/uL (0.0-0.2); #Eosinphils 0.2 thou/uL (0.0-0.7); #Lymphocytes 1.8 thou/uL (1.20-3.40); #Monocytes 0.4 thou/uL (0.11-0.59); #Neutrophils 4.5 thou/uL (1.40-6.50); %Basophils 0.8 % (0.0-1.0); %Eosinophils 3.1 % (0.0-10.0); %Lymphocytes 25.7 % (21.0-51.0); %Monocytes 6.1 % (0.0-10.0); %Neutrophils 64.4 % (42.0-75.0); Hemoglobin 11.8 g/dL (12.0-16.0); Mean Corpuscular HGB CONC 33.2 g/dL (32.0-36.0); Mean Corpuscular Hemoglobin 29.4 pg (27.0-31.0); Mean Corpuscular Volume 88.4 fl (81.0-99.0); Mean Platelet Volume 8.2 fL (7.4-10.4); Platelet Count 211 thou/uL (130-400); RBC Distribution Width 12.6 % (11.5-14.5); Red Blood Cell (RBC) Count 4.02 mill/uL (4.20-5.40)
[2016-09-14] MEDS ORDERED: Acetaminophen 500 MG TAB ONE (23:18)
[2016-09-14] MEDS ORDERED: Sodium Chloride 0.9% 1,000 ML ONE (23:18)
[2016-09-14] MEDS ORDERED: Metoclopramide HCl 10 MG/2 ML VIAL ONE (23:18)
[2016-09-14] MEDS ORDERED: Pantoprazole 40 MG VIAL ONE (23:18)
[2016-09-14] MEDS ORDERED: diphenhydrAMINE HCl 50 MG/ML 1 ML VIAL ONE (23:18)
[2016-09-14 23:31] LABS: Anion Gap 13 mmol/L (10-20); BUN (Urea Nitrogen) 10 mg/dL (7.0-18.7); Calc. Creatinine Clearance 0 mL/min (70-130); Carbon Dioxide 25 mmol/L (22-29); Chloride 105 mmol/L (98-107); Estimated GFR-MDRD 88; Glucose 131 mg/dL (70-105); Potassium 3.1 mmol/L (3.5-5.1); Sodium 140 mmol/L (136-145)
--- NOTE | 2016-09-14 23:35 | CT ---
CT BRAIN 09/14/16 PROVIDED CLINICAL HISTORY: Headache. FINDINGS: Comparison 10/14/15. The ventricular system is normal in size and morphology. There is no evidence for intracranial hemor rhage or mass effect. The extracranial soft tissues and osseous structures demonstrate no acute abno rmality. IMPRESSION: No evidence for intracranial hemorrhage or mass effect. POS: [facility]
--- NOTE | 2016-09-14 23:37 | RAD ---
TWO VIEWS CHEST 09/14/16 PROVIDED CLINICAL HISTORY: Cough. FINDINGS: 08/06/16 The cardiac and mediastinal silhouette is within normal limits. No focal consolidation, pleural flu id or pneumothorax apparent. IMPRESSION: No definite evidence for an acute cardiopulmonary process. POS: [facility]
[2016-09-14] MEDS ORDERED: Potassium Chloride 20 MEQ TAB ONE (23:46)
== END 2016-09-15 00:55 | disposition home or self-care (01) ==
LOC: NAV ERS 22:32
DX: J20.9 Acute bronchitis, unspecified (principal); R51 Headache; B20 Human immunodeficiency virus [HIV] disease; K21.9 Gastro-esophageal reflux disease without esophagitis; E66.9 Obesity, unspecified; J45.909 Unspecified asthma, uncomplicated; F41.9 Anxiety disorder, unspecified; F31.9 Bipolar disorder, unspecified
CPT/HCPCS: 36415; 70450; 71020; 80048; 85025; 96361; 96374; 96375; C9113; J1200; J2765; J7050

== ENCOUNTER 2016-11-03 08:57 | Emergency (ER) | payer SELFPAY ==
--- NOTE | 2016-11-03 12:02 | CT ---
CT LUMBAR SPINE NONCONTRAST: CLINICAL HISTORY: Low back pain. FINDINGS: Vertebral body heights and alignment are preserved. There is mild degenerative change at the visual ized lower thoracic and lumbar spine. N significant acute pathology of the unenhanced, visualized r etroperitoneum. IMPRESSION: Mild degenerative change. No acute fracture of the lumbar spine. POS: [facility]
--- NOTE | 2016-11-03 12:05 | RAD ---
THREE VIEWS RIGHT ANKLE: CLINICAL HISTORY: Fall with joint pain. FINDINGS: Reference is made to an 01/20/16 exam. There is mild soft tissue prominence. No fracture or dislocation. Mortise is intact. IMPRESSION: No acute fracture of the right ankle. POS: [facility]
--- NOTE | 2016-11-03 12:08 | RAD ---
RIGHT FOOT 3 VIEWS: HISTORY: Fall with injury to foot. FINDINGS: There are minimal arthritic changes of the 1st metatarsal phalangeal joint. There are calcaneal spu rs present. There are no signs of fracture or dislocation. IMPRESSION: No evidence of fracture. POS: [facility]
== END 2016-11-03 11:30 | disposition home or self-care (01) ==
LOC: NAV ERS 08:57
DX: S39.012A Strain of muscle, fascia and tendon of lower back, initial encounter (principal); S93.402A Sprain of unspecified ligament of left ankle, initial encounter; F31.9 Bipolar disorder, unspecified; K21.9 Gastro-esophageal reflux disease without esophagitis; E66.9 Obesity, unspecified; J45.909 Unspecified asthma, uncomplicated; W19.XXXA Unspecified fall, initial encounter; Z91.81 History of falling; Y93.02 Activity, running
CPT/HCPCS: 72131

== ENCOUNTER 2016-11-21 15:16 | Emergency (ER) | payer SELFPAY ==
[2016-11-21] MEDS ORDERED: Ibuprofen 800 MG TAB ONE (15:42)
[2016-11-21] MEDS ORDERED: Ondansetron ODT 4 MG TAB ONE (15:42)
== END 2016-11-21 16:33 | disposition home or self-care (01) ==
LOC: NAV ERS 15:16
DX: R11.2 Nausea with vomiting, unspecified (principal); M19.071 Primary osteoarthritis, right ankle and foot; B20 Human immunodeficiency virus [HIV] disease; K21.9 Gastro-esophageal reflux disease without esophagitis; E66.9 Obesity, unspecified; J45.909 Unspecified asthma, uncomplicated; F41.9 Anxiety disorder, unspecified; F31.9 Bipolar disorder, unspecified
CPT/HCPCS: 99283; Q0162

== ENCOUNTER 2016-11-25 17:37 | Emergency (ER) | payer SELFPAY | END 2016-11-25 18:20 | disposition home or self-care (01) | LOC: NAV ERS 17:37 | DX: M19.071 Primary osteoarthritis, right ankle and foot (principal); B20 Human immunodeficiency virus [HIV] disease; K21.9 Gastro-esophageal reflux disease without esophagitis; E66.9 Obesity, unspecified; J45.909 Unspecified asthma, uncomplicated; F41.9 Anxiety disorder, unspecified; F31.9 Bipolar disorder, unspecified | CPT/HCPCS: 99283 ==

== ENCOUNTER 2016-11-27 20:52 | Emergency (ER) | payer SELFPAY ==
[2016-11-27 21:24] LABS: Pregnancy Test - Urine (BHCG) Negative (Negative); Pregu Control Background? CLEAR/WHITE (CLR/WHITE); Pregu Control Bar Appear? YES (CONTROL BAR); Specific Gravity 1.005 (1.002-1.036)
[2016-11-27 21:47] LABS: Bilirubin Negative (Negative); Blood, Urine Trace (Negative); Clarity Clear (Clear); Glucose, Urine (Dipstick) Negative (Negative); Leukocyte Negative (Negative); Nitrite Negative (Negative); Protein, Urine (Dipstick) Negative (Neg-Trace); Specific Gravity, Urine 1.005 (1.002-1.036); pH, Urine 6.5 (5.0-9.0)
[2016-11-27 21:55] LABS: Bacteria/HPF 1+ HPF (None Seen); RBC/HPF 0-3 HPF (0-3); WBC/HPF 0-3 HPF (0-3)
== END 2016-11-27 22:12 | disposition home or self-care (01) ==
LOC: NAV ERS 20:52
DX: M25.571 Pain in right ankle and joints of right foot (principal); R11.2 Nausea with vomiting, unspecified; K21.9 Gastro-esophageal reflux disease without esophagitis; J45.909 Unspecified asthma, uncomplicated; F41.9 Anxiety disorder, unspecified; F31.9 Bipolar disorder, unspecified
CPT/HCPCS: 81003; 81015; 81025; 99284

== ENCOUNTER 2016-12-18 21:35 | Emergency (ER) | payer OTHER, SELFPAY ==
[2016-12-18] MEDS ORDERED: Ibuprofen 800 MG TAB ONE (22:20)
== END 2016-12-18 22:24 | disposition home or self-care (01) ==
LOC: NAV ERS 21:35
DX: S39.012A Strain of muscle, fascia and tendon of lower back, initial encounter (principal); S20.219A Contusion of unspecified front wall of thorax, initial encounter; K21.9 Gastro-esophageal reflux disease without esophagitis; J45.909 Unspecified asthma, uncomplicated; F41.9 Anxiety disorder, unspecified; F31.9 Bipolar disorder, unspecified; Z79.899 Other long term (current) drug therapy; V89.2XXA Person injured in unspecified motor-vehicle accident, traffic, initial encounter
CPT/HCPCS: 99283

== ENCOUNTER 2016-12-23 15:13 | Emergency (ER) | payer OTHER, SELFPAY | END 2016-12-23 16:25 | disposition home or self-care (01) | LOC: NAV ERS 15:13 | DX: S39.012A Strain of muscle, fascia and tendon of lower back, initial encounter (principal); S29.012A Strain of muscle and tendon of back wall of thorax, initial encounter; S20.219A Contusion of unspecified front wall of thorax, initial encounter; S30.1XXA Contusion of abdominal wall, initial encounter; K21.9 Gastro-esophageal reflux disease without esophagitis; J45.909 Unspecified asthma, uncomplicated; E66.9 Obesity, unspecified; F41.9 Anxiety disorder, unspecified; F31.9 Bipolar disorder, unspecified; V89.2XXA Person injured in unspecified motor-vehicle accident, traffic, initial encounter | CPT/HCPCS: 99283 ==

== ENCOUNTER 2017-02-11 19:48 | Emergency (ER) | payer SELFPAY ==
[2017-02-11] MEDS ORDERED: Ibuprofen 800 MG TAB ONE (20:12)
== END 2017-02-11 20:17 | disposition home or self-care (01) ==
LOC: NAV ERS 19:48
DX: S80.11XA Contusion of right lower leg, initial encounter (principal); K21.9 Gastro-esophageal reflux disease without esophagitis; J45.909 Unspecified asthma, uncomplicated; F41.9 Anxiety disorder, unspecified; F31.9 Bipolar disorder, unspecified; W18.30XA Fall on same level, unspecified, initial encounter
CPT/HCPCS: 99283

== ENCOUNTER 2017-03-09 11:23 | Emergency (ER) | payer SELFPAY | END 2017-03-09 12:29 | disposition home or self-care (01) | LOC: NAV ERS 11:23 | DX: M79.1 Myalgia (principal); K21.9 Gastro-esophageal reflux disease without esophagitis; E66.9 Obesity, unspecified; J45.909 Unspecified asthma, uncomplicated; F41.9 Anxiety disorder, unspecified; F31.9 Bipolar disorder, unspecified | CPT/HCPCS: 99283 ==

== ENCOUNTER 2017-04-07 17:55 | Emergency (ER) | payer SELFPAY ==
[2017-04-07] MEDS ORDERED: Ibuprofen 800 MG TAB ONE (18:35)
== END 2017-04-07 19:20 | disposition home or self-care (01) ==
LOC: NAV ERS 17:55
DX: B34.9 Viral infection, unspecified (principal); K21.9 Gastro-esophageal reflux disease without esophagitis; E66.9 Obesity, unspecified; J45.909 Unspecified asthma, uncomplicated; F41.9 Anxiety disorder, unspecified; F31.9 Bipolar disorder, unspecified
CPT/HCPCS: 99283

== ENCOUNTER 2017-06-21 19:20 | Emergency (ER) | payer SELFPAY ==
[2017-06-21 20:00] LABS: Bilirubin Negative (Negative); Blood, Urine Trace (Negative); Clarity Clear (Clear); Glucose, Urine (Dipstick) Negative (Negative); Leukocyte Negative (Negative); Nitrite Negative (Negative); Protein, Urine (Dipstick) Negative (Neg-Trace); Specific Gravity, Urine 1.015 (1.005-1.030); Urobilinogen > or = 8.0 mg/dL (0.2-1.0)
[2017-06-21 20:25] LABS: RBC/HPF None Seen HPF (0-3); Squamous Epithelial 0-3 HPF (0-3); WBC/HPF 0-3 HPF (0-3)
[2017-06-23 00:50] LABS: Chlamydia by PCR Not Detected (NotDetected); GC by PCR Not Detected (NotDetected)
== END 2017-06-21 20:39 | disposition home or self-care (01) ==
LOC: NAV ERS 19:20
DX: M54.5 Low back pain (principal); R10.32 Left lower quadrant pain; R10.31 Right lower quadrant pain; K21.9 Gastro-esophageal reflux disease without esophagitis; E66.9 Obesity, unspecified; J45.909 Unspecified asthma, uncomplicated; F31.9 Bipolar disorder, unspecified; F41.9 Anxiety disorder, unspecified; Z79.899 Other long term (current) drug therapy
CPT/HCPCS: 81003; 81015; 87491; 87591; 99284

== ENCOUNTER 2017-07-14 18:48 | Emergency (ER) | payer SELFPAY ==
[2017-07-14] MEDS ORDERED: Ibuprofen 800 MG TAB ONE (19:39)
== END 2017-07-14 19:40 | disposition home or self-care (01) ==
LOC: NAV ERS 18:48
DX: M79.1 Myalgia (principal); K21.9 Gastro-esophageal reflux disease without esophagitis; J45.909 Unspecified asthma, uncomplicated; E66.9 Obesity, unspecified; F41.9 Anxiety disorder, unspecified; F31.9 Bipolar disorder, unspecified; Z79.899 Other long term (current) drug therapy
CPT/HCPCS: 99283

== ENCOUNTER 2017-08-24 16:20 | Emergency (ER) | payer SELFPAY ==
--- NOTE | 2017-08-24 17:24 | RAD ---
TWO VIEWS OF THE LEFT HIP 08/24/17 COMPARISON: None. HISTORY: Pain to the left knee and thigh status post fall at work two days ago. FINDINGS: No displaced fracture or evidence of dislocation seen. IMPRESSION: No acute findings. POS: [facility]
--- NOTE | 2017-08-24 17:25 | RAD ---
FOUR VIEWS OF THE LEFT KNEE: 08/24/17 COMPARISON: None. HISTORY: Fall, trauma, pain. FINDINGS: Mild medial and lateral compartment narrowing. Mild osteophyte formation involving the medial femoral condyle, medial tibial plateau, and lateral tibial plateau. Mild enthesophyte formation at the inser tion of the quadriceps tendon. No acute fracture or dislocation seen. IMPRESSION: Degenerative change with no acute fracture seen. POS: [facility]
== END 2017-08-24 17:56 | disposition home or self-care (01) ==
LOC: NAV ERS 16:20
DX: S83.412A Sprain of medial collateral ligament of left knee, initial encounter (principal); S76.012A Strain of muscle, fascia and tendon of left hip, initial encounter; K21.9 Gastro-esophageal reflux disease without esophagitis; J45.909 Unspecified asthma, uncomplicated; F41.9 Anxiety disorder, unspecified; F31.9 Bipolar disorder, unspecified; Z79.899 Other long term (current) drug therapy; W18.30XA Fall on same level, unspecified, initial encounter

== ENCOUNTER 2017-11-27 20:51 | Emergency (ER) | payer SELFPAY ==
[2017-11-27] MEDS ORDERED: Ibuprofen 800 MG TAB ONE (21:17)
== END 2017-11-27 21:23 | disposition home or self-care (01) ==
LOC: NAV ERS 20:51
DX: S83.92XA Sprain of unspecified site of left knee, initial encounter (principal); J45.909 Unspecified asthma, uncomplicated; K21.9 Gastro-esophageal reflux disease without esophagitis; F41.9 Anxiety disorder, unspecified; F31.9 Bipolar disorder, unspecified; W22.8XXA Striking against or struck by other objects, initial encounter
CPT/HCPCS: 99283

== ENCOUNTER 2018-01-02 18:10 | Emergency (ER) | payer SELFPAY ==
[~2018-01-02 18:10] MED LIST: Iopamidol 370 76% 100 ML VIAL ONE
[2018-01-02] MEDS ORDERED: Ondansetron HCl/PF 4 MG/2 ML Vial ONE (19:00)
[2018-01-02] MEDS ORDERED: Sodium Chloride 0.9% 1,000 ML ONE (19:00)
[2018-01-02 19:08] LABS: Bilirubin Negative (Negative); Blood, Urine Moderate (Negative); Clarity Clear (Clear); Glucose, Urine (Dipstick) Negative (Negative); Leukocyte Negative (Negative); Nitrite Negative (Negative); Protein, Urine (Dipstick) Negative (Neg-Trace); Specific Gravity, Urine 1.025 (1.005-1.030); pH, Urine 5.5 (5.0-9.0)
[2018-01-02 19:12] LABS: ALT (SGPT) 18 U/L (8-55); AST (SGOT) 21 U/L (5-34); Albumin 4.3 g/dL (3.5-5.0); Alkaline Phosphatase 80 U/L (40-150); Anion Gap 14 mmol/L (10-20); BUN (Urea Nitrogen) 10 mg/dL (7.0-18.7); Bilirubin, Total 0.6 mg/dL (0.2-1.2); Calc. Creatinine Clearance 0 mL/min (70-130); Calcium 9.6 mg/dL (7.8-10.44); Carbon Dioxide 24 mmol/L (22-29); Chloride 104 mmol/L (98-107); Estimated GFR-MDRD Greater than 90; Globulin 4.1 g/dL (2.4-3.5); Glucose 127 mg/dL (70-105); Lipase 21 U/L (8-78); Potassium 3.5 mmol/L (3.5-5.1); Protein, Total 8.4 g/dL (6.0-8.3); Sodium 138 mmol/L (136-145)
[2018-01-02 19:21] LABS: Hemoglobin 12.4 g/dL (12.0-16.0); Mean Corpuscular HGB CONC 31.8 g/dL (32.0-36.0); Mean Corpuscular Hemoglobin 29.4 pg (27.0-31.0); Mean Corpuscular Volume 92.3 fL (78.0-98.0); Mean Platelet Volume 8.8 fL (7.4-10.4); Platelet Count 263 thou/uL (130-400); RBC Distribution Width 11.6 % (11.5-14.5); Red Blood Cell (RBC) Count 4.24 mill/uL (4.20-5.40); White Blood Cell (WBC) Count 8.3 thou/uL (4.8-10.8)
[2018-01-02 19:23] LABS: Bacteria/HPF Rare-Few HPF (None Seen); WBC/HPF 0-3 HPF (0-3)
[2018-01-02 19:23] LABS: Eosinophils 1 % (0-10); Lymphocytes 30 % (21-51); MDiff Complete? YES; Monocytes 6 % (0-10); Neutrophil 63 % (42-75); PLT Morphology Comment Appears Adequate
[2018-01-02 19:26] LABS: Other Microscopic Description NO
[2018-01-02 19:30] LABS: Pregnancy Test - Urine (BHCG) Negative (Negative); Pregu Control Background? CLEAR/WHITE (CLR/WHITE); Pregu Control Bar Appear? YES (CONTROL BAR); Specific Gravity 1.025 (1.002-1.036)
[2018-01-02] MEDS ORDERED: Ondansetron ODT 4 MG TAB ONE (20:47)
--- NOTE | 2018-01-02 22:05 | CT ---
CT ABDOMEN AND PELVIS WITH IV CONTRAST: 01/02/18 HISTORY: Abdominal pain in the epigastric region for two days. Vomiting. COMPARISON: Noncontrast CT abdomen and pelvis on 08/30/15. FINDINGS: The lung bases, liver, spleen, pancreas, bilateral adrenal glands, kidneys, abdominal aorta, and deco mpressed urinary bladder demonstrate a normal CT appearance. There is slight heterogeneity and lobula rigo appearance of the uterus which was also noted on a noncontrasted CT scan exam and is probably rel ated to uterine fibroids. A few low densities structures seen in the right adnexal region probably re lated to dominant follicles. The appendix is visualized and normal in caliber. Loops of small bowel are also normal in caliber. There is mild stranding/increased attenuation in the central mesentery with small lymph nodes scatter ed in this region. This is overall stable in appearance compared to the study in 2016 and is nonspeci fic. Findings can be related to mesenteric panniculitis. No free fluid, fluid collection, or lymphade nopathy is seen in the abdomen or pelvis. Again noted is a small lipoma in the left gluteus medius musculature. IMPRESSION: 1. No acute findings are seen in the abdomen or pelvis. 2. Stable increased density and mild stranding within the central mesentery with a few small lym ph nodes present. This is overall nonspecific, but can be seen with mesenteric panniculitis. 3. No CT evidence of appendicitis. Findings likely attributable to a fibroid uterus. POS: [facility]
== END 2018-01-02 20:50 | disposition home or self-care (01) ==
LOC: NAV ERS 18:10
DX: R11.2 Nausea with vomiting, unspecified (principal); R10.10 Upper abdominal pain, unspecified; J45.909 Unspecified asthma, uncomplicated; K21.9 Gastro-esophageal reflux disease without esophagitis; F41.9 Anxiety disorder, unspecified; F31.9 Bipolar disorder, unspecified; Z79.899 Other long term (current) drug therapy
CPT/HCPCS: 74177; 80053; 81003; 81015; 81025; 83690; 85025; 93005; 94760; 96361; 96374; J2405; J7050; Q0162

== ENCOUNTER 2018-01-08 00:03 | Emergency (ER) | payer SELFPAY ==
[2018-01-08] MEDS ORDERED: Mag-Al Plus 1200 MG/1200 MG/120 MG/30 ML UDCUP ONE (00:41)
[2018-01-08] MEDS ORDERED: Ondansetron ODT 4 MG TAB ONE (00:41)
[2018-01-08] MEDS ORDERED: Lidocaine Viscous Sol 2% 15 ml UD Cup ONE (00:42)
[2018-01-08 00:49] LABS: #Basophils 0.1 thou/uL (0.0-0.2); #Eosinphils 0.4 thou/uL (0.0-0.7); #Lymphocytes 1.8 thou/uL (1.20-3.40); #Monocytes 0.5 thou/uL (0.11-0.59); #Neutrophils 4.9 thou/uL (1.40-6.50); %Basophils 0.8 % (0.0-1.0); %Eosinophils 5.4 % (0.0-10.0); %Lymphocytes 23.8 % (21.0-51.0); %Monocytes 6.2 % (0.0-10.0); %Neutrophils 63.8 % (42.0-75.0); Hemoglobin 11.3 g/dL (12.0-16.0); Mean Corpuscular HGB CONC 31.6 g/dL (32.0-36.0); Mean Corpuscular Hemoglobin 29.3 pg (27.0-31.0); Mean Corpuscular Volume 92.8 fL (78.0-98.0); Platelet Count 250 thou/uL (130-400); RBC Distribution Width 11.7 % (11.5-14.5); Red Blood Cell (RBC) Count 3.87 mill/uL (4.20-5.40); White Blood Cell (WBC) Count 7.7 thou/uL (4.8-10.8)
[2018-01-08 01:07] LABS: ALT (SGPT) 16 U/L (8-55); AST (SGOT) 15 U/L (5-34); Albumin 3.7 g/dL (3.5-5.0); Alkaline Phosphatase 72 U/L (40-150); Anion Gap 10 mmol/L (10-20); BUN (Urea Nitrogen) 10 mg/dL (7.0-18.7); Bilirubin, Total 0.3 mg/dL (0.2-1.2); Calc. Creatinine Clearance 0 mL/min (70-130); Carbon Dioxide 28 mmol/L (22-29); Chloride 104 mmol/L (98-107); Estimated GFR-MDRD Greater than 90; Globulin 3.4 g/dL (2.4-3.5); Glucose 111 mg/dL (70-105); Lipase 17 U/L (8-78); Potassium 3.5 mmol/L (3.5-5.1); Protein, Total 7.1 g/dL (6.0-8.3); Sodium 138 mmol/L (136-145)
== END 2018-01-08 01:25 | disposition home or self-care (01) ==
LOC: NAV ERS 00:03
DX: R11.0 Nausea (principal); J45.909 Unspecified asthma, uncomplicated; K21.9 Gastro-esophageal reflux disease without esophagitis; F41.9 Anxiety disorder, unspecified; F31.9 Bipolar disorder, unspecified; Z79.899 Other long term (current) drug therapy
CPT/HCPCS: 36415; 80053; 83690; 85025; 93005; Q0162

== ENCOUNTER 2018-02-09 08:15 | Emergency (ER) | payer SELFPAY ==
--- NOTE | 2018-02-09 10:30 | RAD ---
LEFT KNEE FOUR VIEWS: INDICATIONS: History of flu vaccine, tetanus, pneumococcal vaccine, and left knee pain. FINDINGS: There is mild osteoarthrosis of the left knee, which is stable to the prior study dated 08/24/2017. No definite joint capsular distention is noted. IMPRESSION: No acute osseous abnormality. Stable mild osteoarthrosis of the left knee. POS: [facility]
== END 2018-02-09 09:40 | disposition home or self-care (01) ==
LOC: NAV ERS 08:15
DX: S83.92XA Sprain of unspecified site of left knee, initial encounter (principal); K21.9 Gastro-esophageal reflux disease without esophagitis; F41.9 Anxiety disorder, unspecified; F31.9 Bipolar disorder, unspecified; J45.909 Unspecified asthma, uncomplicated; Z79.899 Other long term (current) drug therapy; X58.XXXA Exposure to other specified factors, initial encounter

== ENCOUNTER 2018-04-12 11:15 | Emergency (ER) | payer SELFPAY | END 2018-04-12 12:10 | disposition home or self-care (01) | LOC: NAV ERS 11:15 | DX: M25.462 Effusion, left knee (principal); J45.909 Unspecified asthma, uncomplicated; K21.9 Gastro-esophageal reflux disease without esophagitis; F41.9 Anxiety disorder, unspecified; F31.9 Bipolar disorder, unspecified; B20 Human immunodeficiency virus [HIV] disease; Z79.899 Other long term (current) drug therapy | CPT/HCPCS: 99283 ==

== ENCOUNTER 2018-06-23 11:12 | Emergency (ER) | payer SELFPAY | END 2018-06-23 11:40 | disposition home or self-care (01) | LOC: NAV ERS 11:12 | DX: M54.5 Low back pain (principal); M79.10 Myalgia, unspecified site; F41.9 Anxiety disorder, unspecified; F31.9 Bipolar disorder, unspecified; K21.9 Gastro-esophageal reflux disease without esophagitis; B20 Human immunodeficiency virus [HIV] disease; J45.909 Unspecified asthma, uncomplicated; Z79.899 Other long term (current) drug therapy | CPT/HCPCS: 99281 ==

== ENCOUNTER 2018-07-23 22:14 | Emergency (ER) | payer SELFPAY ==
[2018-07-23] MEDS ORDERED: Ondansetron PF 4 MG/2 ML Vial ONE (23:03)
[2018-07-23] MEDS ORDERED: Sodium Chloride 0.9% 1,000 ML ONE (23:03)
[2018-07-23 23:06] LABS: Bilirubin Negative (Negative); Blood, Urine Small (Negative); Clarity Clear (Clear); Glucose, Urine (Dipstick) Negative (Negative); Leukocyte Negative (Negative); Nitrite Negative (Negative); Protein, Urine (Dipstick) Negative (Neg-Trace); Specific Gravity, Urine 1.015 (1.005-1.030); pH, Urine 5.5 (5.0-9.0)
[2018-07-23 23:14] LABS: Bacteria/HPF None Seen HPF (None Seen); WBC/HPF None Seen HPF (0-3)
[2018-07-23 23:14] LABS: #Eosinphils 0.2 thou/uL (0.0-0.7); #Lymphocytes 2.3 thou/uL (1.20-3.40); #Monocytes 0.5 thou/uL (0.11-0.59); %Basophils 0.7 % (0.0-1.0); %Eosinophils 2.7 % (0.0-10.0); %Monocytes 6.5 % (0.0-10.0); %Neutrophils 57.2 % (42.0-75.0); Hemoglobin 12.6 g/dL (12.0-16.0); Mean Corpuscular HGB CONC 31.1 g/dL (32.0-36.0); Mean Corpuscular Hemoglobin 27.9 pg (27.0-31.0); Mean Corpuscular Volume 89.8 fL (78.0-98.0); Mean Platelet Volume 7.9 fL (7.4-10.4); Platelet Count 274 thou/uL (130-400); RBC Distribution Width 11.9 % (11.5-14.5)
[2018-07-23 23:35] LABS: ALT (SGPT) 25 U/L (8-55); AST (SGOT) 23 U/L (5-34); Albumin 4.3 g/dL (3.5-5.0); Alkaline Phosphatase 93 U/L (40-150); Anion Gap 16 mmol/L (10-20); BUN (Urea Nitrogen) 15 mg/dL (7.0-18.7); Bilirubin, Total 0.4 mg/dL (0.2-1.2); Calc. Creatinine Clearance 0 mL/min (70-130); Calcium 9.5 mg/dL (7.8-10.44); Carbon Dioxide 24 mmol/L (22-29); Chloride 104 mmol/L (98-107); Estimated GFR-MDRD 90; Globulin 3.9 g/dL (2.4-3.5); Glucose 103 mg/dL (70-105); Lipase 16 U/L (8-78); Potassium 3.6 mmol/L (3.5-5.1); Protein, Total 8.2 g/dL (6.0-8.3); Sodium 140 mmol/L (136-145)
[2018-07-24] MEDS ORDERED: Pantoprazole 40 MG VIAL ONE (00:10)
== END 2018-07-24 00:20 | disposition home or self-care (01) ==
LOC: NAV ERS 22:14
DX: R11.2 Nausea with vomiting, unspecified (principal); R10.33 Periumbilical pain; F31.9 Bipolar disorder, unspecified; F41.9 Anxiety disorder, unspecified; K21.9 Gastro-esophageal reflux disease without esophagitis; J45.909 Unspecified asthma, uncomplicated; Z21 Asymptomatic human immunodeficiency virus [HIV] infection status; Z79.899 Other long term (current) drug therapy
CPT/HCPCS: 36415; 80053; 81003; 81015; 83690; 85025; 96361; 96374; 96375; C9113; J2405; J7050

== ENCOUNTER 2018-08-06 17:28 | Emergency (ER) | payer SELFPAY ==
[2018-08-06] MEDS ORDERED: Ondansetron ODT 4 MG TAB ONE (17:44)
[2018-08-06 18:29] LABS: #Basophils 0.1 thou/uL (0.0-0.2); #Eosinphils 0.3 thou/uL (0.0-0.7); #Lymphocytes 1.9 thou/uL (1.20-3.40); #Monocytes 0.6 thou/uL (0.11-0.59); #Neutrophils 5.3 thou/uL (1.40-6.50); %Eosinophils 3.1 % (0.0-10.0); %Lymphocytes 23.7 % (21.0-51.0); %Monocytes 6.8 % (0.0-10.0); %Neutrophils 65.4 % (42.0-75.0); Hemoglobin 11.7 g/dL (12.0-16.0); Mean Corpuscular HGB CONC 31.3 g/dL (32.0-36.0); Mean Corpuscular Hemoglobin 28.6 pg (27.0-31.0); Mean Corpuscular Volume 91.2 fL (78.0-98.0); Mean Platelet Volume 8.6 fL (7.4-10.4); Platelet Count 277 thou/uL (130-400); RBC Distribution Width 12.7 % (11.5-14.5); Red Blood Cell (RBC) Count 4.08 mill/uL (4.20-5.40); White Blood Cell (WBC) Count 8.1 thou/uL (4.8-10.8)
[2018-08-06 18:30] LABS: Bilirubin Negative (Negative); Blood, Urine Large (Negative); Glucose, Urine (Dipstick) Negative (Negative); Leukocyte Negative (Negative); Nitrite Negative (Negative); Protein, Urine (Dipstick) Negative (Neg-Trace); Urobilinogen > or = 8.0 mg/dL (0.2-1.0)
[2018-08-06 18:31] LABS: Clarity SL HAZY (Clear)
[2018-08-06 18:32] LABS: Pregnancy Test - Urine (BHCG) Negative (Negative); Pregu Control Background? CLEAR/WHITE (CLR/WHITE); Pregu Control Bar Appear? YES (CONTROL BAR)
[2018-08-06 18:32] LABS: INR-International Normal Ratio 1.1; PTT 34.8 SEC (22.9-36.1); Prothrombin Time 14.3 SEC (12.0-14.7)
[2018-08-06 18:40] LABS: Bacteria/HPF 2+ HPF (None Seen); Crystals/HPF 1+ AMORPH URATES HPF (Negative); WBC/HPF 0-3 HPF (0-3)
[2018-08-06 18:42] LABS: ALT (SGPT) 18 U/L (8-55); AST (SGOT) 22 U/L (5-34); Albumin 4.1 g/dL (3.5-5.0); Alkaline Phosphatase 82 U/L (40-150); Anion Gap 16 mmol/L (10-20); BUN (Urea Nitrogen) 11 mg/dL (7.0-18.7); Bilirubin, Total 0.5 mg/dL (0.2-1.2); Calc. Creatinine Clearance 0 mL/min (70-130); Calcium 9.2 mg/dL (7.8-10.44); Carbon Dioxide 27 mmol/L (22-29); Chloride 102 mmol/L (98-107); Estimated GFR-MDRD 65; Globulin 3.7 g/dL (2.4-3.5); Glucose 80 mg/dL (70-105); Lipase 16 U/L (8-78); Potassium 3.5 mmol/L (3.5-5.1); Protein, Total 7.8 g/dL (6.0-8.3); Sodium 141 mmol/L (136-145)
== END 2018-08-06 19:10 | disposition home or self-care (01) ==
LOC: NAV ERS 17:28
DX: R11.2 Nausea with vomiting, unspecified (principal); R10.10 Upper abdominal pain, unspecified; B20 Human immunodeficiency virus [HIV] disease; J45.909 Unspecified asthma, uncomplicated; K21.9 Gastro-esophageal reflux disease without esophagitis; F41.9 Anxiety disorder, unspecified; F31.9 Bipolar disorder, unspecified; Z79.899 Other long term (current) drug therapy
CPT/HCPCS: 80053; 81003; 81015; 81025; 82271; 82274; 83690; 85025; 85610; 85730; 99284; Q0162

== ENCOUNTER 2018-10-12 07:53 | Emergency (ER) | payer SELFPAY ==
[2018-10-12 08:30] LABS: Bilirubin Negative (Negative); Blood, Urine Trace (Negative); Clarity Clear (Clear); Glucose, Urine (Dipstick) Negative (Negative); Leukocyte Negative (Negative); Nitrite Negative (Negative); Protein, Urine (Dipstick) Negative (Neg-Trace); Urobilinogen 0.2 mg/dL (Less than 2)
[2018-10-12 08:31] LABS: Bacteria/HPF None Seen HPF (None Seen); Squamous Epithelial 0-3 HPF (0-3); WBC/HPF None Seen HPF (0-3)
[2018-10-12 08:31] LABS: #Eosinphils 0.2 thou/uL (0.0-0.7); #Lymphocytes 1.6 thou/uL (1.20-3.40); #Monocytes 0.3 thou/uL (0.11-0.59); #Neutrophils 2.7 thou/uL (1.40-6.50); %Basophils 0.7 % (0.0-1.0); %Eosinophils 4.6 % (0.0-10.0); %Lymphocytes 33.3 % (21.0-51.0); %Monocytes 6.3 % (0.0-10.0); %Neutrophils 55.1 % (42.0-75.0); Hemoglobin 12.3 g/dL (12.0-16.0); Mean Corpuscular HGB CONC 30.9 g/dL (32.0-36.0); Mean Corpuscular Hemoglobin 28.5 pg (27.0-31.0); Mean Corpuscular Volume 92.3 fL (78.0-98.0); Platelet Count 276 thou/uL (130-400); Red Blood Cell (RBC) Count 4.33 mill/uL (4.20-5.40); White Blood Cell (WBC) Count 4.9 thou/uL (4.8-10.8)
[2018-10-12 08:50] LABS: ALT (SGPT) 14 U/L (8-55); AST (SGOT) 14 U/L (5-34); Alkaline Phosphatase 85 U/L (40-150); Anion Gap 14 mmol/L (10-20); BUN (Urea Nitrogen) 9 mg/dL (7.0-18.7); Bilirubin, Total 0.6 mg/dL (0.2-1.2); Calc. Creatinine Clearance 0 mL/min (70-130); Calcium 9.4 mg/dL (7.8-10.44); Carbon Dioxide 23 mmol/L (22-29); Chloride 106 mmol/L (98-107); Estimated GFR-MDRD Greater than 90; Globulin 3.8 g/dL (2.4-3.5); Glucose 103 mg/dL (70-105); Lipase 10 U/L (8-78); Potassium 3.6 mmol/L (3.5-5.1); Protein, Total 7.8 g/dL (6.0-8.3); Sodium 139 mmol/L (136-145)
== END 2018-10-12 08:59 | disposition home or self-care (01) ==
LOC: NAV ERS 07:53
DX: R10.31 Right lower quadrant pain (principal); R10.32 Left lower quadrant pain; B20 Human immunodeficiency virus [HIV] disease; K21.9 Gastro-esophageal reflux disease without esophagitis; F41.9 Anxiety disorder, unspecified; F31.9 Bipolar disorder, unspecified; Z79.899 Other long term (current) drug therapy
CPT/HCPCS: 36415; 80053; 81003; 81015; 83605; 83690; 85025; 99284

== ENCOUNTER 2018-10-13 21:22 | Emergency (ER) | payer SELFPAY ==
[2018-10-13] MEDS ORDERED: Lidocaine Viscous Sol 2% 15 ml UD Cup ONE (21:48)
[2018-10-13] MEDS ORDERED: Ondansetron PF 4 MG/2 ML Vial ONE (21:48)
[2018-10-13] MEDS ORDERED: Mag-Al Plus 1200 MG/1200 MG/120 MG/30 ML UDCUP ONE (21:48)
[2018-10-13] MEDS ORDERED: Pantoprazole 40 MG VIAL ONE (21:48)
[2018-10-13] MEDS ORDERED: Sodium Chloride 0.9% 1,000 ML ONE (21:48)
[2018-10-13 22:06] LABS: #Basophils 0.1 thou/uL (0.0-0.2); #Eosinphils 0.3 thou/uL (0.0-0.7); #Lymphocytes 2.6 thou/uL (1.20-3.40); #Monocytes 0.5 thou/uL (0.11-0.59); #Neutrophils 5.3 thou/uL (1.40-6.50); %Basophils 1.1 % (0.0-1.0); %Eosinophils 3.8 % (0.0-10.0); %Lymphocytes 29.1 % (21.0-51.0); %Monocytes 5.3 % (0.0-10.0); %Neutrophils 60.7 % (42.0-75.0); Hemoglobin 12.4 g/dL (12.0-16.0); Mean Corpuscular HGB CONC 31.2 g/dL (32.0-36.0); Mean Corpuscular Hemoglobin 28.5 pg (27.0-31.0); Mean Corpuscular Volume 91.4 fL (78.0-98.0); Mean Platelet Volume 8.1 fL (7.4-10.4); Platelet Count 281 thou/uL (130-400); RBC Distribution Width 12.3 % (11.5-14.5); Red Blood Cell (RBC) Count 4.36 mill/uL (4.20-5.40); White Blood Cell (WBC) Count 8.8 thou/uL (4.8-10.8)
[2018-10-13 22:14] LABS: Bilirubin Negative (Negative); Blood, Urine Trace (Negative); Clarity Clear (Clear); Glucose, Urine (Dipstick) Negative (Negative); Leukocyte Negative (Negative); Nitrite Negative (Negative); Protein, Urine (Dipstick) Negative (Neg-Trace)
[2018-10-13 22:15] LABS: ALT (SGPT) 15 U/L (8-55); AST (SGOT) 17 U/L (5-34); Albumin 4.2 g/dL (3.5-5.0); Alkaline Phosphatase 91 U/L (40-150); Anion Gap 14 mmol/L (10-20); BUN (Urea Nitrogen) 11 mg/dL (7.0-18.7); Bilirubin, Total 0.3 mg/dL (0.2-1.2); Calc. Creatinine Clearance 0 mL/min (70-130); Calcium 9.2 mg/dL (7.8-10.44); Carbon Dioxide 25 mmol/L (22-29); Chloride 103 mmol/L (98-107); Estimated GFR-MDRD 70; Glucose 100 mg/dL (70-105); Lipase 16 U/L (8-78); Potassium 3.5 mmol/L (3.5-5.1); Protein, Total 8.2 g/dL (6.0-8.3); Sodium 138 mmol/L (136-145)
[2018-10-13 22:17] LABS: Pregnancy Test - Urine (BHCG) Negative (Negative); Pregu Control Background? CLEAR/WHITE (CLR/WHITE); Pregu Control Bar Appear? YES (CONTROL BAR); Specific Gravity 1.015 (1.002-1.036)
[2018-10-13 22:22] LABS: Mucous/LPF 1+ LPF (<2+); RBC/HPF 0-3 HPF (0-3); Squamous Epithelial 0-3 HPF (0-3)
[2018-10-13 22:24] LABS: Amphetamine Not Detected (NotDetected); Barbiturates Screen Not Detected (NotDetected); Benzodiazepine Screen Not Detected (NotDetected); Cocaine Metabolite Screen Not Detected (NotDetected); Medtox Control Line Valid? VALID (VALID); Methadone Not Detected (NotDetected); Methamphetamine Not Detected (NotDetected); Opiate Screen Not Detected (NotDetected); Oxycodone Screen Not Detected (NotDetected); Phencyclidine (PCP) Not Detected (NotDetected); THC/Cannabinoid Screen Not Detected (NotDetected); Tricyclic Screen Not Detected (NotDetected)
[2018-10-15 23:02] LABS: Chlam.trachomatis by PCR,Urine Not Detected (NotDetected)
== END 2018-10-13 23:45 | disposition home or self-care (01) ==
LOC: NAV ERS 21:22
DX: R11.2 Nausea with vomiting, unspecified (principal); R10.12 Left upper quadrant pain; K21.9 Gastro-esophageal reflux disease without esophagitis; F41.9 Anxiety disorder, unspecified; F31.9 Bipolar disorder, unspecified; B20 Human immunodeficiency virus [HIV] disease; J45.909 Unspecified asthma, uncomplicated; Z79.899 Other long term (current) drug therapy
CPT/HCPCS: 80053; 80306; 81003; 81015; 81025; 83690; 85025; 87491; 87591; 93005; 96361; 96374; 96375; C9113; J2405; J7050

== ENCOUNTER 2018-10-19 00:56 | Emergency (ER) | payer SELFPAY | END 2018-10-19 02:07 | disposition home or self-care (01) | LOC: NAV ERS 00:56 | DX: R07.81 Pleurodynia (principal); B20 Human immunodeficiency virus [HIV] disease; J45.909 Unspecified asthma, uncomplicated; K21.9 Gastro-esophageal reflux disease without esophagitis; F41.9 Anxiety disorder, unspecified; F31.9 Bipolar disorder, unspecified | CPT/HCPCS: 99284 ==

== ENCOUNTER 2018-10-19 17:26 | Emergency (ER) | payer SELFPAY ==
[2018-10-19 18:13] LABS: Bilirubin Negative (Negative); Blood, Urine Trace (Negative); Clarity Clear (Clear); Glucose, Urine (Dipstick) Negative (Negative); Leukocyte Negative (Negative); Nitrite Negative (Negative); Protein, Urine (Dipstick) Negative (Neg-Trace)
[2018-10-19 18:20] LABS: Bacteria/HPF None Seen HPF (None Seen); RBC/HPF None Seen HPF (0-3); Squamous Epithelial 0-3 HPF (0-3); WBC/HPF None Seen HPF (0-3)
[2018-10-19] MEDS ORDERED: Pantoprazole 40 MG VIAL ONE (18:21)
[2018-10-19] MEDS ORDERED: Morphine 4 MG/ML VIAL ONE (18:21)
[2018-10-19] MEDS ORDERED: Ondansetron PF 4 MG/2 ML Vial ONE (18:21)
[2018-10-19 18:40] LABS: #Basophils 0.1 thou/uL (0.0-0.2); #Eosinphils 0.2 thou/uL (0.0-0.7); #Lymphocytes 1.3 thou/uL (1.20-3.40); #Monocytes 0.5 thou/uL (0.11-0.59); #Neutrophils 5.2 thou/uL (1.40-6.50); %Basophils 0.9 % (0.0-1.0); %Eosinophils 2.4 % (0.0-10.0); %Lymphocytes 18.6 % (21.0-51.0); %Monocytes 6.4 % (0.0-10.0); %Neutrophils 71.8 % (42.0-75.0); Hemoglobin 12.1 g/dL (12.0-16.0); Mean Corpuscular HGB CONC 31.4 g/dL (32.0-36.0); Mean Corpuscular Hemoglobin 28.8 pg (27.0-31.0); Mean Corpuscular Volume 91.6 fL (78.0-98.0); Mean Platelet Volume 8.5 fL (7.4-10.4); Platelet Count 259 thou/uL (130-400); RBC Distribution Width 12.4 % (11.5-14.5); Red Blood Cell (RBC) Count 4.21 mill/uL (4.20-5.40); White Blood Cell (WBC) Count 7.2 thou/uL (4.8-10.8)
[2018-10-19 18:44] LABS: Anion Gap 13 mmol/L (10-20); BUN (Urea Nitrogen) 8 mg/dL (7.0-18.7); Calc. Creatinine Clearance 0 mL/min (70-130); Calcium 9.5 mg/dL (7.8-10.44); Carbon Dioxide 27 mmol/L (22-29); Chloride 103 mmol/L (98-107); Estimated GFR-MDRD 76; Glucose 114 mg/dL (70-105); Lipase 10 U/L (8-78); Potassium 3.6 mmol/L (3.5-5.1); Sodium 139 mmol/L (136-145)
--- NOTE | 2018-10-19 18:56 | RAD ---
XR Chest Pa Lat STANDARD History: Sharp periumbilical pain Comparison: Radiograph 2018 Findings: Lungs are clear. No pneumothorax or effusion. Cardiac silhouette and mediastinal contours a re within normal limits. No acute osseous abnormality. Impression: No acute intrathoracic abnormality.
--- NOTE | 2018-10-19 19:16 | CT ---
CT Abdomen Pelvis W Con History: Periumbilical pain Comparison: CT abdomen and pelvis December 2017 Findings: Lung bases are clear. No pericardial effusion. Normal proximal small bowel rotation. Chronic mesenteric panniculitis, unchanged. Aortoiliac contour is nonaneurysmal. The appendix is visualized and is normal. No dilated loops of large or small bowel. Liver and gallbladder along with the spleen pancreas adrenal glands and kidneys are unremarkable. No hydronephrosis. Moderate facet arthropathy lower lumbar spine. No acute osseous abnormality. Impression: Chronic mesenteric panniculitis. No acute intra-abdominal abnormality.
== END 2018-10-19 21:12 | disposition home or self-care (01) ==
LOC: NAV ERS 17:26
DX: K21.9 Gastro-esophageal reflux disease without esophagitis (principal); B20 Human immunodeficiency virus [HIV] disease; J45.909 Unspecified asthma, uncomplicated; F41.9 Anxiety disorder, unspecified; F31.9 Bipolar disorder, unspecified
CPT/HCPCS: 71046; 74177; 80048; 81003; 81015; 83690; 84484; 85025; 93005; 96374; 96375; C9113; J2270; J2405; Q9967

== ENCOUNTER 2018-10-25 00:18 | Emergency (ER) | payer SELFPAY ==
[2018-10-25] MEDS ORDERED: methylPREDNISolone Acetate 40 mg/ml Vial ONE (01:15)
[2018-10-25] MEDS ORDERED: traMADol HCl 50 MG TAB ONE (01:15)
--- NOTE | 2018-10-25 08:41 | RAD ---
LEFT SHOULDER THREE VIEWS: HISTORY: Left shoulder pain. FINDINGS: There are degenerative changes in the acromioclavicular joint. No acute fracture, dislocation, or tracy ny destruction is identified. POS: [facility]
== END 2018-10-25 01:35 | disposition home or self-care (01) ==
LOC: NAV ERS 00:18
DX: S46.912A Strain of unspecified muscle, fascia and tendon at shoulder and upper arm level, left arm, initial encounter (principal); B20 Human immunodeficiency virus [HIV] disease; J45.909 Unspecified asthma, uncomplicated; K21.9 Gastro-esophageal reflux disease without esophagitis; F41.9 Anxiety disorder, unspecified; F31.9 Bipolar disorder, unspecified; Z79.899 Other long term (current) drug therapy; X50.9XXA Other and unspecified overexertion or strenuous movements or postures, initial encounter
CPT/HCPCS: 93005; 96372; J1030

== ENCOUNTER 2018-12-05 22:37 | Emergency (ER) | payer SELFPAY | END 2018-12-05 23:17 | disposition home or self-care (01) | LOC: NAV ERS 22:37 | DX: N99.820 Postprocedural hemorrhage of a genitourinary system organ or structure following a genitourinary system procedure (principal); B20 Human immunodeficiency virus [HIV] disease; J45.909 Unspecified asthma, uncomplicated; K21.9 Gastro-esophageal reflux disease without esophagitis; F41.9 Anxiety disorder, unspecified; F31.9 Bipolar disorder, unspecified; Z79.899 Other long term (current) drug therapy | CPT/HCPCS: 99283 ==

== ENCOUNTER 2018-12-17 14:35 | Emergency (ER) | payer SELFPAY ==
[2018-12-17 15:44] LABS: #Basophils 0.1 thou/uL (0.0-0.2); #Eosinphils 0.5 thou/uL (0.0-0.7); #Lymphocytes 1.9 thou/uL (1.20-3.40); #Monocytes 0.6 thou/uL (0.11-0.59); #Neutrophils 6.5 thou/uL (1.40-6.50); %Basophils 0.6 % (0.0-1.0); %Eosinophils 4.9 % (0.0-10.0); %Lymphocytes 19.7 % (21.0-51.0); %Monocytes 6.1 % (0.0-10.0); %Neutrophils 68.6 % (42.0-75.0); Hemoglobin 11.1 g/dL (12.0-16.0); Mean Corpuscular Hemoglobin 29.7 pg (27.0-31.0); Platelet Count 315 thou/uL (130-400); RBC Distribution Width 11.9 % (11.5-14.5); Red Blood Cell (RBC) Count 3.72 mill/uL (4.20-5.40); White Blood Cell (WBC) Count 9.5 thou/uL (4.8-10.8)
[2018-12-17 15:58] LABS: CK (CPK) 164 U/L (29-168)
[2018-12-17 16:16] LABS: ALT (SGPT) 25 U/L (8-55); AST (SGOT) 18 U/L (5-34); Albumin 3.9 g/dL (3.5-5.0); Alkaline Phosphatase 90 U/L (40-110); Anion Gap 13 mmol/L (10-20); BUN (Urea Nitrogen) 11 mg/dL (7.0-18.7); Bilirubin, Total 0.4 mg/dL (0.2-1.2); Calc. Creatinine Clearance 0 mL/min (70-130); Calcium 9.5 mg/dL (7.8-10.44); Carbon Dioxide 27 mmol/L (22-29); Chloride 104 mmol/L (98-107); Estimated GFR-MDRD 87; Globulin 3.6 g/dL (2.4-3.5); Glucose 116 mg/dL (70-105); Potassium 3.5 mmol/L (3.5-5.1); Protein, Total 7.5 g/dL (6.0-8.3); Sodium 140 mmol/L (136-145)
[2018-12-17 16:21] LABS: Bilirubin Negative (Negative); Blood, Urine Moderate (Negative); Clarity Clear (Clear); Glucose, Urine (Dipstick) Negative (Negative); Leukocyte Large (Negative); Nitrite Negative (Negative); Protein, Urine (Dipstick) Negative (Neg-Trace)
--- NOTE | 2018-12-17 16:26 | CT ---
EXAM: Abdomen and pelvic CT scan with contrast: HISTORY: Recent hysterectomy, pelvic pain, vaginal bleeding COMPARISON: 10/19/2018 FINDINGS: The visualized lung bases are clear. Liver: Unremarkable. Gallbladder: Contracted Pancreas: Unremarkable Spleen: Unremarkable. Adrenal glands: Unremarkable. Kidneys: No renal calculus or acute obstruction. No solid or cystic mass. Bowel: No evidence for bowel obstruction. Urinary Bladder: There is wall prominence of the bladder. Adenopathy: No adenopathy within the abdomen or pelvis. Free Air: No free air. Ascites: Inflammatory/postoperative ascites of the pelvis is present. In addition there is a localize d, encapsulated fluid density collection of the posterior pelvis, just posterior to the urinary bladder, 3.8 cm transverse x 2.8 cm AP with peripheral hyperdense rim. Left hemipelvic intramuscular lipoma. Osseous structures: No acute osseous abnormalities. IMPRESSION: Inflammatory fat stranding/free fluid of the pelvis, with focal encapsulated fluid collection posteri or to the urinary bladder indicating an organizing fluid collection which could either be due to development of abscess or a component of organizing hematoma, given history of recent surgery and ble eding. Recommend gynecologic consultation for further assessment. Evidence of cystitis. Correlate clinically. Transcribed Date/Time: 12/17/2018 4:47 PM
[2018-12-17 16:50] LABS: RBC/HPF 0-3 HPF (0-3)
[2018-12-17 16:51] LABS: Bacteria/HPF None Seen HPF (None Seen); Squamous Epithelial 0-3 HPF (0-3); WBC/HPF 0-3 HPF (0-3)
[2018-12-17] MEDS ORDERED: cefTRIAXone\\ROCEPHIN 1 GM VIAL ONE (17:16)
[2018-12-17] MEDS ORDERED: Sodium Chloride 0.9% 100 ML ONE (17:16)
== END 2018-12-17 18:48 | disposition home or self-care (01) ==
LOC: NAV ERS 14:35
DX: N99.89 Other postprocedural complications and disorders of genitourinary system (principal); N39.0 Urinary tract infection, site not specified; R10.32 Left lower quadrant pain; B20 Human immunodeficiency virus [HIV] disease; J45.909 Unspecified asthma, uncomplicated; K21.9 Gastro-esophageal reflux disease without esophagitis; F41.9 Anxiety disorder, unspecified; F31.9 Bipolar disorder, unspecified
CPT/HCPCS: 74177; 80053; 81003; 81015; 82550; 85025; 96374; J0696; J3490; Q9967

== ENCOUNTER 2018-12-22 22:41 | Emergency (ER) | payer SELFPAY ==
[2018-12-22] MEDS ORDERED: Lidocaine Viscous Sol 2% 15 ml UD Cup ONE (23:19)
[2018-12-22] MEDS ORDERED: Mag-Al Plus 1200 MG/1200 MG/120 MG/30 ML UDCUP ONE (23:19)
[2018-12-22 23:25] LABS: #Basophils 0.1 thou/uL (0.0-0.2); #Eosinphils 0.6 thou/uL (0.0-0.7); #Monocytes 0.5 thou/uL (0.11-0.59); #Neutrophils 5.1 thou/uL (1.40-6.50); %Basophils 0.7 % (0.0-1.0); %Eosinophils 6.8 % (0.0-10.0); %Lymphocytes 23.9 % (21.0-51.0); %Monocytes 6.1 % (0.0-10.0); %Neutrophils 62.5 % (42.0-75.0); Hemoglobin 10.2 g/dL (12.0-16.0); Mean Corpuscular HGB CONC 31.8 g/dL (32.0-36.0); Mean Corpuscular Hemoglobin 28.7 pg (27.0-31.0); Mean Corpuscular Volume 90.5 fL (78.0-98.0); Mean Platelet Volume 7.4 fL (7.4-10.4); Platelet Count 304 thou/uL (130-400); RBC Distribution Width 12.1 % (11.5-14.5); Red Blood Cell (RBC) Count 3.55 mill/uL (4.20-5.40); White Blood Cell (WBC) Count 8.2 thou/uL (4.8-10.8)
[2018-12-22 23:37] LABS: Bilirubin Negative (Negative); Blood, Urine Moderate (Negative); Clarity Clear (Clear); Glucose, Urine (Dipstick) Negative (Negative); Leukocyte Small (Negative); Nitrite Negative (Negative); Protein, Urine (Dipstick) Negative (Neg-Trace)
[2018-12-22 23:40] LABS: Bacteria/HPF 1+ HPF (None Seen); RBC/HPF 21-50 HPF (0-3)
[2018-12-22 23:48] LABS: ALT (SGPT) 19 U/L (8-55); AST (SGOT) 19 U/L (5-34); Albumin 3.8 g/dL (3.5-5.0); Alkaline Phosphatase 85 U/L (40-110); Anion Gap 13 mmol/L (10-20); BUN (Urea Nitrogen) 11 mg/dL (7.0-18.7); Bilirubin, Total 0.4 mg/dL (0.2-1.2); CK (CPK) 232 U/L (29-168); Calc. Creatinine Clearance 0 mL/min (70-130); Calcium 8.9 mg/dL (7.8-10.44); Carbon Dioxide 25 mmol/L (22-29); Chloride 104 mmol/L (98-107); Estimated GFR-MDRD 85; Globulin 3.5 g/dL (2.4-3.5); Glucose 106 mg/dL (70-105); Lipase 22 U/L (8-78); Potassium 3.4 mmol/L (3.5-5.1); Protein, Total 7.3 g/dL (6.0-8.3); Sodium 139 mmol/L (136-145)
--- NOTE | 2018-12-23 | RAD ---
FRONTAL VIEW CHEST: Comparison: 10-19-18 Indication: Chest pain FINDINGS: Overlying body wall soft tissues produces increased density in the lower chest, limiting visualizatio n. Cardiac silhouette is accentuated by portable semi-upright technique. No obvious effusion or discr ete pneumothorax. Mild osseous degenerative change is present. IMPRESSION: No definite evidence of acute process. POS: C
== END 2018-12-23 00:02 | disposition home or self-care (01) ==
LOC: NAV ERS 22:41
DX: K29.00 Acute gastritis without bleeding (principal); F31.9 Bipolar disorder, unspecified; F41.9 Anxiety disorder, unspecified; B20 Human immunodeficiency virus [HIV] disease; K21.9 Gastro-esophageal reflux disease without esophagitis; J45.909 Unspecified asthma, uncomplicated; Z86.19 Personal history of other infectious and parasitic diseases; Z79.899 Other long term (current) drug therapy
CPT/HCPCS: 36415; 71045; 80053; 81003; 81015; 82550; 83690; 84484; 85025; 93005

== ENCOUNTER 2019-02-02 18:50 | Emergency (ER) | payer SELFPAY ==
[2019-02-02] MEDS ORDERED: Acetaminophen 325 MG TAB ONE (20:00)
--- NOTE | 2019-02-02 21:18 | RAD ---
LEFT KNEE FOUR VIEWS: HISTORY: Left knee pain. FINDINGS: Mild osteoarthritic changes are again seen, as on 02/09/2018. No fracture, dislocation or bony destru ction is identified. POS: [facility]
--- NOTE | 2019-02-02 21:19 | CT ---
CT LUMBAR SPINE WITHOUT CONTRAST: HISTORY: Fall. Low back pain. COMPARISON: 11/03/2016 FINDINGS: Mild degenerative changes are again seen. No acute fracture or subluxation is identified. POS: [facility]
== END 2019-02-02 21:38 | disposition home or self-care (01) ==
LOC: NAV ERS 18:50
DX: S30.0XXA Contusion of lower back and pelvis, initial encounter (principal); S80.02XA Contusion of left knee, initial encounter; B20 Human immunodeficiency virus [HIV] disease; J45.909 Unspecified asthma, uncomplicated; K21.9 Gastro-esophageal reflux disease without esophagitis; F41.9 Anxiety disorder, unspecified; F31.9 Bipolar disorder, unspecified; W18.2XXA Fall in (into) shower or empty bathtub, initial encounter
CPT/HCPCS: 72131

== ENCOUNTER 2019-02-06 17:10 | Emergency (ER) | payer SELFPAY | END 2019-02-06 17:54 | disposition home or self-care (01) | LOC: NAV ERS 17:10 | DX: L23.9 Allergic contact dermatitis, unspecified cause (principal); J45.909 Unspecified asthma, uncomplicated; K21.9 Gastro-esophageal reflux disease without esophagitis; F41.9 Anxiety disorder, unspecified; F31.9 Bipolar disorder, unspecified | CPT/HCPCS: 99283 ==

== ENCOUNTER 2019-03-08 20:30 | Emergency (ER) | payer SELFPAY ==
[2019-03-08 21:01] LABS: Bilirubin Negative (Negative); Blood, Urine Trace (Negative); Clarity Clear (Clear); Glucose, Urine (Dipstick) Negative (Negative); Leukocyte Negative (Negative); Nitrite Negative (Negative); Pregu Control Background? CLEAR/WHITE (CLR/WHITE); Pregu Control Bar Appear? YES (CONTROL BAR); Protein, Urine (Dipstick) Negative (Neg-Trace); Specific Gravity 1.015 (1.002-1.036)
[2019-03-08 21:03] LABS: RBC/HPF 0-3 HPF (0-3)
[2019-03-08 21:04] LABS: Bacteria/HPF Rare-Few HPF (None Seen); Pregnancy Test - Urine (BHCG) Negative (Negative)
[2019-03-08 21:24] LABS: #Eosinphils 0.1 thou/uL (0.0-0.7); #Monocytes 0.6 thou/uL (0.11-0.59); #Neutrophils 4.8 thou/uL (1.40-6.50); %Basophils 0.6 % (0.0-1.0); %Eosinophils 1.1 % (0.0-10.0); %Lymphocytes 26.3 % (21.0-51.0); %Monocytes 8.1 % (0.0-10.0); %Neutrophils 63.9 % (42.0-75.0); Hemoglobin 11.5 g/dL (12.0-16.0); Mean Corpuscular HGB CONC 32.3 g/dL (32.0-36.0); Mean Corpuscular Hemoglobin 28.8 pg (27.0-31.0); Mean Corpuscular Volume 89.1 fL (78.0-98.0); Mean Platelet Volume 8.4 fL (7.4-10.4); Platelet Count 253 thou/uL (130-400); RBC Distribution Width 12.3 % (11.5-14.5); Red Blood Cell (RBC) Count 3.99 mill/uL (4.20-5.40); White Blood Cell (WBC) Count 7.4 thou/uL (4.8-10.8)
[2019-03-08 21:36] LABS: ALT (SGPT) 19 U/L (8-55); AST (SGOT) 19 U/L (5-34); Albumin 3.9 g/dL (3.5-5.0); Alkaline Phosphatase 81 U/L (40-110); Anion Gap 14 mmol/L (10-20); BUN (Urea Nitrogen) 18 mg/dL (7.0-18.7); Bilirubin, Total 0.5 mg/dL (0.2-1.2); Calc. Creatinine Clearance 0 mL/min (70-130); Calcium 8.8 mg/dL (7.8-10.44); Carbon Dioxide 25 mmol/L (22-29); Chloride 103 mmol/L (98-107); Estimated GFR-MDRD 62; Globulin 3.5 g/dL (2.4-3.5); Glucose 136 mg/dL (70-105); Lipase 29 U/L (8-78); Potassium 3.3 mmol/L (3.5-5.1); Protein, Total 7.4 g/dL (6.0-8.3); Sodium 139 mmol/L (136-145)
[2019-03-08] MEDS ORDERED: Potassium Chloride 20 MEQ TAB ONE (22:07)
[2019-03-08] MEDS ORDERED: Ketorolac Tromethamine 60 MG/2 ML VIAL ONE (22:07)
== END 2019-03-08 22:50 | disposition home or self-care (01) ==
LOC: NAV ERS 20:30
DX: R10.32 Left lower quadrant pain (principal); R31.29 Other microscopic hematuria; E87.6 Hypokalemia; B20 Human immunodeficiency virus [HIV] disease; J45.909 Unspecified asthma, uncomplicated; K21.9 Gastro-esophageal reflux disease without esophagitis; F41.9 Anxiety disorder, unspecified; F31.9 Bipolar disorder, unspecified; Z79.899 Other long term (current) drug therapy
CPT/HCPCS: 36415; 80053; 81003; 81015; 81025; 83690; 85025; 96372; 99284; J0500; J1885

== ENCOUNTER 2019-03-10 20:57 | Emergency (ER) | payer SELFPAY ==
[2019-03-10 22:08] LABS: Bilirubin Negative (Negative); Blood, Urine Small (Negative); Clarity Clear (Clear); Glucose, Urine (Dipstick) Negative (Negative); Leukocyte Trace (Negative); Nitrite Negative (Negative); Protein, Urine (Dipstick) Negative (Neg-Trace); Urobilinogen > or = 8.0 mg/dL (Less than 2)
--- NOTE | 2019-03-10 22:09 | CT ---
EXAM: CT abdomen and pelvis without IV contrast PROVIDED CLINICAL HISTORY: None COMPARISON: None FINDINGS: The visualized lung bases are free of significant opacity. The solid abdominal organs demonstrate an unremarkable CT appearance, suboptimally evaluated in the a bsence of IV contrast. There is no bowel dilatation, inflammatory fat stranding, free fluid or free air apparent. There is n o evidence for appendicitis. No regional lymph node enlargement apparent. The regional major vascular structures appear unremarkab le. The osseous structures demonstrate no concerning lytic or blastic lesions. IMPRESSION: No evidence for an acute process.
[2019-03-10 22:20] LABS: Bacteria/HPF 1+ HPF (None Seen); RBC/HPF 0-3 HPF (0-3); Squamous Epithelial 21-50 HPF (0-3); WBC/HPF 0-3 HPF (0-3)
[2019-03-10 22:23] LABS: Hemoglobin 12.2 g/dL (12.0-16.0); Mean Corpuscular HGB CONC 31.3 g/dL (32.0-36.0); Mean Corpuscular Hemoglobin 28.3 pg (27.0-31.0); Mean Corpuscular Volume 90.4 fL (78.0-98.0); Mean Platelet Volume 8.8 fL (7.4-10.4); Platelet Count 290 thou/uL (130-400); RBC Distribution Width 12.5 % (11.5-14.5); Red Blood Cell (RBC) Count 4.31 mill/uL (4.20-5.40)
[2019-03-10 22:37] LABS: ALT (SGPT) 21 U/L (8-55); Albumin 4.1 g/dL (3.5-5.0); Alkaline Phosphatase 83 U/L (40-110); Anion Gap 17 mmol/L (10-20); BUN (Urea Nitrogen) 16 mg/dL (7.0-18.7); Bilirubin, Total 0.7 mg/dL (0.2-1.2); Calc. Creatinine Clearance 0 mL/min (70-130); Carbon Dioxide 25 mmol/L (22-29); Chloride 101 mmol/L (98-107); Estimated GFR-MDRD 77; Glucose 113 mg/dL (70-105); Lipase 19 U/L (8-78); Potassium 4.6 mmol/L (3.5-5.1); Protein, Total 8.1 g/dL (6.0-8.3); Sodium 138 mmol/L (136-145)
[2019-03-10 22:52] LABS: AST (SGOT) 26 U/L (5-34)
[2019-03-10] MEDS ORDERED: Acetaminophen/Codeine 30-300mg Tablet ONE (22:54)
[2019-03-10 23:58] LABS: Eosinophils 1 % (0-10); Lymphocytes 33 % (21-51); MDiff Complete? YES; Monocytes 4 % (0-10); Neutrophil 62 % (42-75); RBC Morphology Normal
== END 2019-03-10 23:00 | disposition home or self-care (01) ==
LOC: NAV ERS 20:57
DX: R10.2 Pelvic and perineal pain (principal); G89.29 Other chronic pain; B20 Human immunodeficiency virus [HIV] disease; J45.909 Unspecified asthma, uncomplicated; K21.9 Gastro-esophageal reflux disease without esophagitis; F31.9 Bipolar disorder, unspecified; F41.9 Anxiety disorder, unspecified; Z79.899 Other long term (current) drug therapy; Z86.19 Personal history of other infectious and parasitic diseases
CPT/HCPCS: 36415; 74176; 80053; 81003; 81015; 83690; 85025

== ENCOUNTER 2019-03-12 21:12 | Emergency (ER) | payer SELFPAY | END 2019-03-12 22:28 | disposition home or self-care (01) | LOC: NAV ERS 21:12 | DX: R10.12 Left upper quadrant pain (principal); B20 Human immunodeficiency virus [HIV] disease; J45.909 Unspecified asthma, uncomplicated; K21.9 Gastro-esophageal reflux disease without esophagitis; F41.9 Anxiety disorder, unspecified; F31.9 Bipolar disorder, unspecified; Z79.899 Other long term (current) drug therapy | CPT/HCPCS: 99283 ==

== ENCOUNTER 2019-03-26 19:59 | Emergency (ER) | payer SELFPAY ==
[2019-03-26] MEDS ORDERED: Naproxen 500 MG TAB ONE (20:32)
== END 2019-03-26 20:43 | disposition home or self-care (01) ==
LOC: NAV ERS 19:59
DX: S39.012A Strain of muscle, fascia and tendon of lower back, initial encounter (principal); B20 Human immunodeficiency virus [HIV] disease; J45.909 Unspecified asthma, uncomplicated; K21.9 Gastro-esophageal reflux disease without esophagitis; F41.9 Anxiety disorder, unspecified; F31.9 Bipolar disorder, unspecified; Z79.899 Other long term (current) drug therapy
CPT/HCPCS: 99283

== ENCOUNTER 2019-04-18 19:16 | Emergency (ER) | payer SELFPAY | END 2019-04-18 20:15 | disposition home or self-care (01) | LOC: NAV ERS 19:16 | DX: J20.8 Acute bronchitis due to other specified organisms (principal); K21.9 Gastro-esophageal reflux disease without esophagitis; B20 Human immunodeficiency virus [HIV] disease; J45.909 Unspecified asthma, uncomplicated; F41.9 Anxiety disorder, unspecified; F31.9 Bipolar disorder, unspecified | CPT/HCPCS: 87804; 99284 ==

== ENCOUNTER 2019-07-30 13:04 | Emergency (ER) | payer OTHER, SELFPAY | END 2019-07-30 13:45 | disposition home or self-care (01) | LOC: NAV ERS 13:04 | DX: R05 Cough (principal); R11.0 Nausea; R06.00 Dyspnea, unspecified; R07.89 Other chest pain; B20 Human immunodeficiency virus [HIV] disease; J45.909 Unspecified asthma, uncomplicated; K21.9 Gastro-esophageal reflux disease without esophagitis; F41.9 Anxiety disorder, unspecified; F31.9 Bipolar disorder, unspecified; Z79.899 Other long term (current) drug therapy | CPT/HCPCS: 99283 ==

== ENCOUNTER 2019-09-07 15:38 | Emergency (ER) | payer OTHER, SELFPAY ==
--- NOTE | 2019-09-07 16:54 | RAD ---
Exam: Chest one view HISTORY:Cough. Comparison: 12/22/2018 FINDINGS: Cardiac silhouette: Normal Aorta: Unremarkable Pulmonary vessels: Normal Costophrenic angles: Clear LUNGS: No masses or consolidation. Pneumothorax: None Osseous abnormalities: None IMPRESSION: No acute cardiopulmonary process.
[2019-09-08 15:41] LABS: SARS-CoV-2 MS2 Positive; SARS-CoV-2 N Gene Negative; SARS-CoV-2 S Gene Negative; SARS-CoV-2 orf1ab Negative
== END 2019-09-07 17:18 | disposition home or self-care (01) ==
LOC: NAV ERS 15:38
DX: J06.9 Acute upper respiratory infection, unspecified (principal); R52 Pain, unspecified; Z20.828 Contact with and (suspected) exposure to other viral communicable diseases; B20 Human immunodeficiency virus [HIV] disease; K21.9 Gastro-esophageal reflux disease without esophagitis; F41.9 Anxiety disorder, unspecified; F31.9 Bipolar disorder, unspecified; J45.909 Unspecified asthma, uncomplicated; Z79.899 Other long term (current) drug therapy
CPT/HCPCS: 71045; 87635; U0003

== ENCOUNTER 2019-09-22 22:56 | Emergency (ER) | payer SELFPAY ==
[2019-09-22] MEDS ORDERED: Ondansetron ODT 4 MG TAB ONE (23:37)
[2019-09-22] MEDS ORDERED: Ketorolac Tromethamine 30 MG/ML VIAL ONE (23:37)
== END 2019-09-22 23:57 | disposition home or self-care (01) ==
LOC: NAV ERS 22:56
DX: R07.89 Other chest pain (principal); B20 Human immunodeficiency virus [HIV] disease; K21.9 Gastro-esophageal reflux disease without esophagitis; F41.9 Anxiety disorder, unspecified; F31.9 Bipolar disorder, unspecified
CPT/HCPCS: 93005; 96372; J1885; Q0162

== ENCOUNTER 2019-09-24 03:40 | Emergency (ER) | payer SELFPAY ==
[2019-09-24] MEDS ORDERED: Sodium Chloride 0.9% 1,000 ML ONE (04:37)
[2019-09-24] MEDS ORDERED: Pantoprazole 40 MG VIAL ONE (04:37)
[2019-09-24 04:46] LABS: INR-International Normal Ratio 1.1; PTT 34.7 sec (22.9-36.1)
[2019-09-24 04:49] LABS: Band 2 % (5-11); Eosinophils 2 % (0-10); Lymphocytes 24 % (21-51); MDiff Complete? YES; Mean Corpuscular HGB CONC 31.7 g/dL (32.0-36.0); Mean Corpuscular Hemoglobin 29.3 pg (27.0-31.0); Mean Corpuscular Volume 92.2 fL (78.0-98.0); Mean Platelet Volume 9.4 fL (7.4-10.4); Monocytes 6 % (0-10); Neutrophil 62 % (42-75); Platelet Count 235 thou/uL (130-400); Platelet Morphology Comment Appears Adequate; RBC Distribution Width 12.5 % (11.5-14.5); RBC Morphology Normal; Reactive Lymphocytes 4 % (0-10); Red Blood Cell (RBC) Count 4.09 mill/uL (4.20-5.40); White Blood Cell (WBC) Count 6.7 thou/uL (4.8-10.8)
== END 2019-09-24 07:00 | disposition home or self-care (01) ==
LOC: NAV ERS 03:40
DX: R04.2 Hemoptysis (principal); B20 Human immunodeficiency virus [HIV] disease; F31.9 Bipolar disorder, unspecified; F41.9 Anxiety disorder, unspecified; K21.9 Gastro-esophageal reflux disease without esophagitis; Z79.899 Other long term (current) drug therapy
CPT/HCPCS: 36415; 85025; 85610; 85730; 96361; 96374; C9113; J7050

== ENCOUNTER 2019-09-27 05:46 | Emergency (ER) | payer SELFPAY ==
[2019-09-27] MEDS ORDERED: Pantoprazole 40 MG VIAL ONE (06:28)
[2019-09-27 06:44] LABS: #Eosinphils 0.3 thou/uL (0.0-0.7); #Lymphocytes 1.9 thou/uL (1.20-3.40); #Monocytes 0.5 thou/uL (0.11-0.59); #Neutrophils 3.7 thou/uL (1.40-6.50); %Basophils 0.6 % (0.0-1.0); %Eosinophils 4.6 % (0.0-10.0); %Lymphocytes 29.6 % (21.0-51.0); %Monocytes 7.3 % (0.0-10.0); %Neutrophils 57.9 % (42.0-75.0); Hemoglobin 12.2 g/dL (12.0-16.0); Mean Corpuscular Hemoglobin 28.6 pg (27.0-31.0); Mean Corpuscular Volume 92.5 fL (78.0-98.0); Mean Platelet Volume 9.4 fL (7.4-10.4); Platelet Count 246 thou/uL (130-400); RBC Distribution Width 12.4 % (11.5-14.5); Red Blood Cell (RBC) Count 4.25 mill/uL (4.20-5.40); White Blood Cell (WBC) Count 6.4 thou/uL (4.8-10.8)
[2019-09-27 06:57] LABS: Prothrombin Time 13.3 sec (12.0-14.7)
[2019-09-27 06:58] LABS: PTT 33.1 sec (22.9-36.1)
[2019-09-27 07:43] LABS: ALT (SGPT) 29 U/L (8-55); AST (SGOT) 26 U/L (5-34); Albumin 4.2 g/dL (3.5-5.0); Alkaline Phosphatase 97 U/L (40-110); Anion Gap 13 mmol/L (10-20); BUN (Urea Nitrogen) 9 mg/dL (7.0-18.7); Bilirubin, Total 0.9 mg/dL (0.2-1.2); Calc. Creatinine Clearance 0 mL/min (70-130); Calcium 9.4 mg/dL (7.8-10.44); Carbon Dioxide 26 mmol/L (22-29); Chloride 104 mmol/L (98-107); Estimated GFR-MDRD 85; Globulin 3.8 g/dL (2.4-3.5); Glucose 109 mg/dL (70-105); Potassium 3.5 mmol/L (3.5-5.1); Sodium 139 mmol/L (136-145)
== END 2019-09-27 08:07 | disposition home or self-care (01) ==
LOC: NAV ERS 05:46
DX: K92.0 Hematemesis (principal); B20 Human immunodeficiency virus [HIV] disease; K21.9 Gastro-esophageal reflux disease without esophagitis; F41.9 Anxiety disorder, unspecified; F31.9 Bipolar disorder, unspecified; Z79.899 Other long term (current) drug therapy
CPT/HCPCS: 36415; 80053; 85025; 85610; 85730; 96374; C9113

== ENCOUNTER 2019-11-25 07:07 | Emergency (ER) | payer OTHER, SELFPAY ==
--- NOTE | 2019-11-25 10:17 | RAD ---
SINGLE VIEW CHEST: Date: 11/25/2019 COMPARISON: None. HISTORY: Chest pain and shortness of breath. FINDINGS: Single view of the chest shows a normal sized cardiomediastinal silhouette. There is no evidence of c onsolidation, mass, or pleural effusion. The bones are unremarkable. IMPRESSION: No evidence of acute cardiopulmonary disease. POS: [facility]
[2019-11-25 16:45] LABS: SARS-CoV-2 MS2 Positive; SARS-CoV-2 N Gene Negative; SARS-CoV-2 S Gene Negative; SARS-CoV-2 by NAA Not Detected (NotDetected); SARS-CoV-2 orf1ab Negative
== END 2019-11-25 08:22 | disposition home or self-care (01) ==
LOC: NAV ERS 07:07
DX: R05 Cough (principal); Z20.828 Contact with and (suspected) exposure to other viral communicable diseases; B20 Human immunodeficiency virus [HIV] disease
CPT/HCPCS: 71045; 87635; U0003

== ENCOUNTER 2019-12-05 09:46 | Emergency (ER) | payer SELFPAY ==
[2019-12-05] MEDS ORDERED: Ondansetron PF 4 MG/2 ML Vial ONE (10:19)
[2019-12-05 11:08] LABS: Bilirubin Negative (Negative); Blood, Urine Trace (Negative); Clarity Clear (Clear); Glucose, Urine (Dipstick) Negative (Negative); Ketone, Urine Negative (Negative); Leukocyte Negative (Negative); Nitrite Negative (Negative); Protein, Urine (Dipstick) Negative (Neg-Trace); Specific Gravity, Urine 1.015 (1.005-1.030); Urobilinogen 0.2 mg/dL (Less than 2)
[2019-12-05 11:10] LABS: #Basophils 0.1 thou/uL (0.0-0.2); #Eosinphils 0.4 thou/uL (0.0-0.7); #Lymphocytes 2.1 thou/uL (1.20-3.40); #Monocytes 0.4 thou/uL (0.11-0.59); #Neutrophils 3.3 thou/uL (1.40-6.50); %Basophils 1.3 % (0.0-1.0); %Eosinophils 5.9 % (0.0-10.0); %Lymphocytes 34.3 % (21.0-51.0); %Monocytes 6.1 % (0.0-10.0); %Neutrophils 52.4 % (42.0-75.0); Mean Corpuscular HGB CONC 31.8 g/dL (32.0-36.0); Mean Corpuscular Hemoglobin 29.2 pg (27.0-31.0); Mean Corpuscular Volume 91.8 fL (78.0-98.0); Platelet Count 274 thou/uL (130-400); RBC Distribution Width 12.5 % (11.5-14.5); Red Blood Cell (RBC) Count 4.44 mill/uL (4.20-5.40); White Blood Cell (WBC) Count 6.2 thou/uL (4.8-10.8)
[2019-12-05 11:17] LABS: Bacteria/HPF 1+ HPF (None Seen); RBC/HPF None Seen HPF (0-3); WBC/HPF 0-3 HPF (0-3)
[2019-12-05 11:20] LABS: ALT (SGPT) 20 U/L (8-55); AST (SGOT) 20 U/L (5-34); Albumin 4.3 g/dL (3.5-5.0); Alkaline Phosphatase 108 U/L (40-110); Anion Gap 13 mmol/L (10-20); BUN (Urea Nitrogen) 7 mg/dL (7.0-18.7); Bilirubin, Total 0.8 mg/dL (0.2-1.2); Calc. Creatinine Clearance 0 mL/min (70-130); Calcium 9.6 mg/dL (7.8-10.44); Carbon Dioxide 27 mmol/L (22-29); Chloride 103 mmol/L (98-107); Estimated GFR-MDRD 82; Globulin 3.8 g/dL (2.4-3.5); Glucose 103 mg/dL (70-105); Potassium 3.8 mmol/L (3.5-5.1); Protein, Total 8.1 g/dL (6.0-8.3); Sodium 139 mmol/L (136-145)
== END 2019-12-05 12:05 | disposition home or self-care (01) ==
LOC: NAV ERS 09:46
DX: K52.9 Noninfective gastroenteritis and colitis, unspecified (principal); B20 Human immunodeficiency virus [HIV] disease; Z79.899 Other long term (current) drug therapy
CPT/HCPCS: 80053; 81003; 81015; 83605; 85025; 96361; 96374; J2405

== ENCOUNTER 2020-01-04 16:16 | Emergency (ER) | payer OTHER ==
[2020-01-04] MEDS ORDERED: Ketorolac Tromethamine 60 MG/2 ML VIAL ONE (16:48)
== END 2020-01-04 17:05 | disposition home or self-care (01) ==
LOC: NAV ERS 16:16
DX: M94.0 Chondrocostal junction syndrome [Tietze] (principal); R05 Cough; B20 Human immunodeficiency virus [HIV] disease
CPT/HCPCS: 93005; 96372; J1885

== ENCOUNTER 2020-02-01 17:16 | Emergency (ER) | payer OTHER, SELFPAY ==
[2020-02-01] MEDS ORDERED: Acetaminophen 500 MG TAB ONE (18:10)
== END 2020-02-01 18:13 | disposition home or self-care (01) ==
LOC: NAV ERS 17:16
DX: R51.9 Headache, unspecified (principal); J45.909 Unspecified asthma, uncomplicated; B20 Human immunodeficiency virus [HIV] disease; F41.9 Anxiety disorder, unspecified; F31.9 Bipolar disorder, unspecified
CPT/HCPCS: 99283

== ENCOUNTER 2020-02-15 19:04 | Emergency (ER) | payer SELFPAY ==
[2020-02-15] MEDS ORDERED: Lidocaine Viscous Sol 2% 15 ml UD Cup ONE (19:41)
[2020-02-15] MEDS ORDERED: Mag-Al Plus 1200 MG/1200 MG/120 MG/30 ML UDCUP ONE (19:41)
== END 2020-02-15 20:08 | disposition home or self-care (01) ==
LOC: NAV ERS 19:04
DX: K29.00 Acute gastritis without bleeding (principal); K21.9 Gastro-esophageal reflux disease without esophagitis; J45.909 Unspecified asthma, uncomplicated; Z79.899 Other long term (current) drug therapy
CPT/HCPCS: 99283

== ENCOUNTER 2020-02-17 19:18 | Emergency (ER) | payer SELFPAY ==
[2020-02-18 17:08] LABS: SARS-CoV-2 MS2 Positive; SARS-CoV-2 N Gene Positive; SARS-CoV-2 S Gene Positive; SARS-CoV-2 by NAA DETECTED (NotDetected); SARS-CoV-2 orf1ab Positive
== END 2020-02-17 20:12 | disposition home or self-care (01) ==
LOC: NAV ERS 19:18
DX: U07.1 COVID-19 (principal); K21.9 Gastro-esophageal reflux disease without esophagitis; J45.909 Unspecified asthma, uncomplicated; Z21 Asymptomatic human immunodeficiency virus [HIV] infection status; Z79.899 Other long term (current) drug therapy
CPT/HCPCS: 87635; 99283; U0003

== ENCOUNTER 2020-02-19 13:31 | Emergency (ER) | payer SELFPAY | END 2020-02-19 13:55 | disposition home or self-care (01) | LOC: NAV ERS 13:31 | DX: U07.1 COVID-19 (principal); Z79.899 Other long term (current) drug therapy | CPT/HCPCS: 99281 ==

== ENCOUNTER 2020-02-20 05:08 | Emergency (ER) | payer SELFPAY ==
[2020-02-20] MEDS ORDERED: Ondansetron ODT 4 MG TAB ONE (06:01)
== END 2020-02-20 06:02 | disposition home or self-care (01) ==
LOC: NAV ERS 05:08
DX: U07.1 COVID-19 (principal); R11.2 Nausea with vomiting, unspecified; K21.9 Gastro-esophageal reflux disease without esophagitis; B20 Human immunodeficiency virus [HIV] disease; Z79.899 Other long term (current) drug therapy
CPT/HCPCS: 99283; Q0162

== ENCOUNTER 2020-02-27 19:44 | Emergency (ER) | payer SELFPAY ==
[2020-02-27] MEDS ORDERED: Ondansetron PF 4 MG/2 ML Vial ONE (20:58)
[2020-02-27] MEDS ORDERED: methylPREDNISolone Sod Succ/PF 125 MG/2 ML VIAL ONE (20:58)
[2020-02-27 21:17] LABS: #Lymphocytes 1.8 thou/uL (1.20-3.40); #Monocytes 0.5 thou/uL (0.11-0.59); #Neutrophils 3.7 thou/uL (1.40-6.50); %Basophils 0.1 % (0.0-1.0); %Eosinophils 0.5 % (0.0-10.0); %Lymphocytes 30.2 % (21.0-51.0); %Monocytes 7.7 % (0.0-10.0); %Neutrophils 61.4 % (42.0-75.0); Hemoglobin 12.1 g/dL (12.0-16.0); Mean Corpuscular HGB CONC 32.4 g/dL (32.0-36.0); Mean Corpuscular Hemoglobin 29.6 pg (27.0-31.0); Mean Corpuscular Volume 91.3 fL (78.0-98.0); Mean Platelet Volume 8.4 fL (7.4-10.4); Platelet Count 255 thou/uL (130-400); RBC Distribution Width 11.5 % (11.5-14.5)
[2020-02-27 21:19] LABS: Bilirubin Small (Negative); Blood, Urine Moderate (Negative); Clarity Slightly Cloudy (Clear); Glucose, Urine (Dipstick) Negative (Negative); Ketone, Urine Negative (Negative); Leukocyte Negative (Negative); Nitrite Negative (Negative); Protein, Urine (Dipstick) > or equal to 300 mg/dL (Neg-Trace); Urobilinogen > or = 8.0 mg/dL (Less than 2)
[2020-02-27 21:25] LABS: Bacteria/HPF None Seen HPF (None Seen); Mucous/LPF 1+ LPF (<2+); WBC/HPF 0-3 HPF (0-3)
[2020-02-27 21:34] LABS: ALT (SGPT) 102 U/L (8-55); AST (SGOT) 115 U/L (5-34); Albumin 3.7 g/dL (3.5-5.0); Alkaline Phosphatase 79 U/L (40-110); Anion Gap 16 mmol/L (10-20); BUN (Urea Nitrogen) 11 mg/dL (7.0-18.7); Bilirubin, Total 1.2 mg/dL (0.2-1.2); Calc. Creatinine Clearance 0 mL/min (70-130); Calcium 8.5 mg/dL (7.8-10.44); Carbon Dioxide 32 mmol/L (22-29); Chloride 97 mmol/L (98-107); Globulin 3.7 g/dL (2.4-3.5); Glucose 97 mg/dL (70-105); Potassium 3.3 mmol/L (3.5-5.1); Protein, Total 7.4 g/dL (6.0-8.3); Sodium 142 mmol/L (136-145)
--- NOTE | 2020-02-27 22:10 | RAD ---
CHEST ONE VIEW: History: Shortness of breath, dizziness. Comparison: 12-02-2019 FINDINGS: Abnormal peripheral and perihilar airspace opacities. No pneumothorax or significant effusion. No acu te osseous abnormality. IMPRESSION: Findings of Covid pneumonia. POS: [facility]
--- NOTE | 2020-02-27 22:36 | CT ---
CT ANGIOGRAM THORAX WITH IV CONTRAST AND 3-D RECONSTRUCTIONS CLINICAL INDICATION: Dyspnea. Diagnosed with Covid 19 on February 26. Shortness of breath. COMPARISON: 12/20/2015. FINDINGS: Pulmonary arteries: There is artifact involving the central pulmonary the right secondary to very den se contrast in the SVC limiting adequate evaluation. No definitive filling defect is seen involving the central or segmental pulmonary arteries to suggest a pulmonary embolus. Aorta: The aorta is normal in caliber without evidence of an aortic dissection. Lungs: Multifocal groundglass densities are seen scattered throughout the lungs bilaterally most comp atible with Covid pneumonia. Mediastinum: There is an enlarged anterior superior mediastinal lymph node measuring 1.1 cm. There is also an enlarged subcarinal lymph node present measuring 1.3 cm with mild increased soft tissue density seen in each hilar region likely related to reactive lymphadenopathy. Thyroid gland: Limited visualized thyroid gland has a normal CT appearance. Osseous structures: No suspicious lytic or sclerotic osseous lesion. Chest wall: No abnormality visualized. Upper abdomen: Within normal limits for phase of imaging. IMPRESSION: 1. Covid pneumonia. 2. No CT evidence to suggest a pulmonary embolus. 3. Mediastinal and hilar lymphadenopathy likely reactive in origin.
== END 2020-02-27 23:15 | disposition home or self-care (01) ==
LOC: NAV ERS 19:44
DX: U07.1 COVID-19 (principal); J12.89 Other viral pneumonia; B20 Human immunodeficiency virus [HIV] disease; K21.9 Gastro-esophageal reflux disease without esophagitis; J45.909 Unspecified asthma, uncomplicated; Z79.899 Other long term (current) drug therapy
CPT/HCPCS: 36415; 71045; 71275; 80053; 81003; 81015; 83605; 84484; 85025; 85379; 93005; 96374; 96375; J2405; J2930; Q9967

== ENCOUNTER 2020-03-02 12:06 | Emergency (ER) | payer SELFPAY ==
--- NOTE | 2020-03-02 12:54 | RAD ---
EXAM: Portable chest PROVIDED CLINICAL HISTORY: Cough COMPARISON: 02/27/2020 FINDINGS: Evaluation is limited by patient body habitus. Cardiac and mediastinal silhouette is within normal li mits. No focal consolidation, pleural fluid or pneumothorax evident. IMPRESSION: No evidence for an acute cardiopulmonary process.
== END 2020-03-02 13:00 | disposition home or self-care (01) ==
LOC: NAV ERS 12:06
DX: U07.1 COVID-19 (principal); K21.9 Gastro-esophageal reflux disease without esophagitis; J45.909 Unspecified asthma, uncomplicated; B20 Human immunodeficiency virus [HIV] disease; Z79.51 Long term (current) use of inhaled steroids; Z79.899 Other long term (current) drug therapy
CPT/HCPCS: 71045

== ENCOUNTER 2020-03-09 23:19 | Emergency (ER) | payer SELFPAY | END 2020-03-09 23:52 | disposition home or self-care (01) | LOC: NAV ERS 23:19 | DX: U07.1 COVID-19 (principal); R00.2 Palpitations; K21.9 Gastro-esophageal reflux disease without esophagitis; B20 Human immunodeficiency virus [HIV] disease; Z79.899 Other long term (current) drug therapy | CPT/HCPCS: 93005 ==

== ENCOUNTER 2020-03-13 20:59 | Emergency (ER) | payer SELFPAY ==
[2020-03-13 21:45] LABS: Bilirubin Negative (Negative); Blood, Urine Small (Negative); Clarity Clear (Clear); Glucose, Urine (Dipstick) Negative (Negative); Ketone, Urine Negative (Negative); Leukocyte Negative (Negative); Nitrite Negative (Negative); Protein, Urine (Dipstick) Negative (Neg-Trace); pH, Urine 5.5 (5.0-9.0)
[2020-03-13 21:50] LABS: Bacteria/HPF Rare-Few HPF (None Seen); WBC/HPF 0-3 HPF (0-3)
[2020-03-13 21:56] LABS: Band 6 % (5-11); Hemoglobin 11.9 g/dL (12.0-16.0); Hypochromia SLIGHT = 6-15 cells (100X) (0-5/hpf); Lymphocytes 16 % (21-51); MDiff Complete? YES; Mean Corpuscular HGB CONC 33.1 g/dL (32.0-36.0); Mean Corpuscular Hemoglobin 30.5 pg (27.0-31.0); Mean Corpuscular Volume 92.4 fL (78.0-98.0); Mean Platelet Volume 8.5 fL (7.4-10.4); Microcytosis SLIGHT = 6-15 cells (100X) (0-5/hpf); Monocytes 4 % (0-10); Neutrophil 70 % (42-75); Platelet Count 277 thou/uL (130-400); Platelet Morphology Comment Appears Adequate; RBC Distribution Width 13.3 % (11.5-14.5); Reactive Lymphocytes 4 % (0-10); Red Blood Cell (RBC) Count 3.88 mill/uL (4.20-5.40); Stomatocytes SLIGHT = 2-5 cells (100X) (0-1/hpf); White Blood Cell (WBC) Count 10.4 thou/uL (4.8-10.8)
--- NOTE | 2020-03-14 07:25 | RAD ---
EXAM: Two views chest PROVIDED CLINICAL HISTORY: Fever. COMPARISON: 03/02/2020 FINDINGS: Cardiac silhouette and pulmonary vasculature are within normal limits. The lungs are clear. No inter munira change from prior study. IMPRESSION: No acute cardiopulmonary process.
== END 2020-03-13 22:09 | disposition home or self-care (01) ==
LOC: NAV ERS 20:59
DX: R50.9 Fever, unspecified (principal); K21.9 Gastro-esophageal reflux disease without esophagitis; J45.909 Unspecified asthma, uncomplicated; B20 Human immunodeficiency virus [HIV] disease
CPT/HCPCS: 36415; 71046; 81003; 81015; 85025

== ENCOUNTER 2020-03-15 21:48 | Emergency (ER) | payer SELFPAY | END 2020-03-15 22:25 | disposition home or self-care (01) | LOC: NAV ERS 21:48 | DX: R07.89 Other chest pain (principal); K21.9 Gastro-esophageal reflux disease without esophagitis; J45.909 Unspecified asthma, uncomplicated; Z79.51 Long term (current) use of inhaled steroids; Z79.899 Other long term (current) drug therapy | CPT/HCPCS: 93005 ==

== ENCOUNTER 2020-03-22 21:13 | Emergency (ER) | payer SELFPAY ==
[2020-03-22] MEDS ORDERED: Naproxen 500 MG TAB ONE (21:39)
== END 2020-03-22 21:43 | disposition home or self-care (01) ==
LOC: NAV ERS 21:13
DX: R07.89 Other chest pain (principal); K21.9 Gastro-esophageal reflux disease without esophagitis; B20 Human immunodeficiency virus [HIV] disease
CPT/HCPCS: 99284

== ENCOUNTER 2020-03-28 20:01 | Emergency (ER) | payer SELFPAY | END 2020-03-28 20:39 | disposition home or self-care (01) | LOC: NAV ERS 20:01 | DX: M94.0 Chondrocostal junction syndrome [Tietze] (principal); M79.18 Myalgia, other site; J45.909 Unspecified asthma, uncomplicated; K21.9 Gastro-esophageal reflux disease without esophagitis; Z21 Asymptomatic human immunodeficiency virus [HIV] infection status; Z79.899 Other long term (current) drug therapy | CPT/HCPCS: 99284 ==

== ENCOUNTER 2020-04-04 18:20 | Emergency (ER) | payer SELFPAY ==
[2020-04-04 19:03] LABS: Hemoglobin 12.2 g/dL (12.0-16.0); Mean Corpuscular HGB CONC 31.3 g/dL (32.0-36.0); Mean Corpuscular Hemoglobin 29.6 pg (27.0-31.0); Mean Corpuscular Volume 94.7 fL (78.0-98.0); Mean Platelet Volume 8.6 fL (7.4-10.4); Platelet Count 296 thou/uL (130-400); RBC Distribution Width 13.9 % (11.5-14.5); Red Blood Cell (RBC) Count 4.11 mill/uL (4.20-5.40); White Blood Cell (WBC) Count 7.3 thou/uL (4.8-10.8)
[2020-04-04 19:20] LABS: #Basophils 0.1 thou/uL (0.0-0.2); #Eosinphils 0.1 thou/uL (0.0-0.7); #Lymphocytes 1.9 thou/uL (1.20-3.40); #Monocytes 0.5 thou/uL (0.11-0.59); #Neutrophils 4.5 thou/uL (1.40-6.50); %Eosinophils 1.9 % (0.0-10.0); %Lymphocytes 26.7 % (21.0-51.0); %Neutrophils 63.3 % (42.0-75.0)
[2020-04-04 19:24] LABS: AST (SGOT) 24 U/L (5-34); Albumin 4.1 g/dL (3.5-5.0); Anion Gap 15 mmol/L (10-20); Bilirubin, Total 0.4 mg/dL (0.2-1.2); Calc. Creatinine Clearance 0 mL/min (70-130); Carbon Dioxide 26 mmol/L (22-29); Chloride 105 mmol/L (98-107); Globulin 3.2 g/dL (2.4-3.5); Potassium 3.8 mmol/L (3.5-5.1); Protein, Total 7.3 g/dL (6.0-8.3); Sodium 142 mmol/L (136-145)
--- NOTE | 2020-04-04 19:47 | RAD ---
TWO VIEWS CHEST: History: Pain, palpitations. Comparison: 03-13-2020 FINDINGS: Normal cardiac silhouette. The pulmonary vessels and hilum are normal. Costophrenic angles are clear. No mass or consolidation. No pneumothorax or acute osseous abnormalities. IMPRESSION: No acute cardiopulmonary process. POS: [facility]
[2020-04-04 19:55] LABS: ALT (SGPT) 27 U/L (8-55); Alkaline Phosphatase 96 U/L (40-110); BUN (Urea Nitrogen) 13 mg/dL (7.0-18.7); CK (CPK) 194 U/L (29-168); Glucose 106 mg/dL (70-105)
== END 2020-04-04 19:47 | disposition home or self-care (01) ==
LOC: NAV ERS 18:20
DX: R07.89 Other chest pain (principal); K21.9 Gastro-esophageal reflux disease without esophagitis; J45.909 Unspecified asthma, uncomplicated; B20 Human immunodeficiency virus [HIV] disease
CPT/HCPCS: 71046; 80053; 82550; 84484; 85025; 93005

== ENCOUNTER 2020-04-08 19:06 | Emergency (ER) | payer SELFPAY ==
[2020-04-08 19:43] LABS: #Basophils 0.1 thou/uL (0.0-0.2); #Eosinphils 0.2 thou/uL (0.0-0.7); #Lymphocytes 1.9 thou/uL (1.20-3.40); #Monocytes 0.5 thou/uL (0.11-0.59); #Neutrophils 5.9 thou/uL (1.40-6.50); %Basophils 1.5 % (0.0-1.0); %Eosinophils 2.1 % (0.0-10.0); %Lymphocytes 22.3 % (21.0-51.0); %Monocytes 5.6 % (0.0-10.0); %Neutrophils 68.5 % (42.0-75.0); Mean Corpuscular HGB CONC 31.9 g/dL (32.0-36.0); Mean Corpuscular Hemoglobin 29.9 pg (27.0-31.0); Mean Corpuscular Volume 93.8 fL (78.0-98.0); Mean Platelet Volume 8.8 fL (7.4-10.4); Platelet Count 272 thou/uL (130-400); RBC Distribution Width 13.4 % (11.5-14.5); White Blood Cell (WBC) Count 8.6 thou/uL (4.8-10.8)
--- NOTE | 2020-04-08 19:57 | RAD ---
EXAM: CHEST ONE VIEW: 04/08/20 HISTORY: Chest pain. COMPARISON: 04/04/20. Decreased inspiration. Heart size is normal. No confluent pneumonia, overt edema, or pleural effusion . IMPRESSION: No significant acute intrathoracic disease. POS: [facility]
[2020-04-08 19:58] LABS: ALT (SGPT) 23 U/L (8-55); AST (SGOT) 21 U/L (5-34); Albumin 4.1 g/dL (3.5-5.0); Alkaline Phosphatase 100 U/L (40-110); Anion Gap 14 mmol/L (10-20); BUN (Urea Nitrogen) 12 mg/dL (7.0-18.7); Bilirubin, Total 0.6 mg/dL (0.2-1.2); Calc. Creatinine Clearance 0 mL/min (70-130); Calcium 9.2 mg/dL (7.8-10.44); Carbon Dioxide 25 mmol/L (22-29); Chloride 103 mmol/L (98-107); Globulin 3.7 g/dL (2.4-3.5); Glucose 124 mg/dL (70-105); Magnesium 1.9 mg/dL (1.6-2.6); Potassium 3.2 mmol/L (3.5-5.1); Protein, Total 7.8 g/dL (6.0-8.3); Sodium 139 mmol/L (136-145)
[2020-04-08] MEDS ORDERED: Potassium Chloride 20 MEQ TAB ONE (20:34)
[2020-04-08] MEDS ORDERED: Aspirin Chewable 81 MG TAB ONE (20:34)
== END 2020-04-08 20:40 | disposition home or self-care (01) ==
LOC: NAV ERS 19:06
DX: G89.29 Other chronic pain (principal); R07.9 Chest pain, unspecified; E87.6 Hypokalemia; F41.9 Anxiety disorder, unspecified; K21.9 Gastro-esophageal reflux disease without esophagitis; J45.909 Unspecified asthma, uncomplicated; B20 Human immunodeficiency virus [HIV] disease; Z79.51 Long term (current) use of inhaled steroids; Z79.899 Other long term (current) drug therapy
CPT/HCPCS: 71045; 80053; 83735; 84484; 85025; 93005; 94760

== ENCOUNTER 2020-05-05 01:49 | Emergency (ER) | payer SELFPAY ==
[2020-05-05 02:21] LABS: Hemoglobin 12.3 g/dL (12.0-16.0); Mean Corpuscular HGB CONC 32.6 g/dL (32.0-36.0); Mean Corpuscular Volume 91.8 fL (78.0-98.0); Mean Platelet Volume 8.6 fL (7.4-10.4); Platelet Count 252 thou/uL (130-400); RBC Distribution Width 12.5 % (11.5-14.5); Red Blood Cell (RBC) Count 4.09 mill/uL (4.20-5.40); White Blood Cell (WBC) Count 7.2 thou/uL (4.8-10.8)
[2020-05-05 02:29] LABS: Band 9 % (5-11); Eosinophils 1 % (0-10); Lymphocytes 25 % (21-51); MDiff Complete? YES; Monocytes 6 % (0-10); Neutrophil 58 % (42-75); Platelet Morphology Comment Appears Adequate; RBC Morphology Normal; Reactive Lymphocytes 1 % (0-10)
[2020-05-05 02:31] LABS: ALT (SGPT) 23 U/L (8-55); AST (SGOT) 22 U/L (5-34); Albumin 3.9 g/dL (3.5-5.0); Alkaline Phosphatase 86 U/L (40-110); Anion Gap 12 mmol/L (10-20); BUN (Urea Nitrogen) 11 mg/dL (7.0-18.7); Bilirubin, Total 0.7 mg/dL (0.2-1.2); Calc. Creatinine Clearance 0 mL/min (70-130); Calcium 9.1 mg/dL (7.8-10.44); Carbon Dioxide 28 mmol/L (22-29); Chloride 102 mmol/L (98-107); Globulin 3.3 g/dL (2.4-3.5); Glucose 101 mg/dL (70-105); Magnesium 1.8 mg/dL (1.6-2.6); Potassium 3.3 mmol/L (3.5-5.1); Protein, Total 7.2 g/dL (6.0-8.3); Sodium 139 mmol/L (136-145)
--- NOTE | 2020-05-05 08:01 | RAD ---
EXAM: Portable chest PROVIDED CLINICAL HISTORY: Chest pain COMPARISON: 04/08/2020 FINDINGS: Cardiac and mediastinal silhouette is within normal limits. No focal consolidation, pleural fluid or pneumothorax evident. IMPRESSION: No evidence for an acute cardiopulmonary process.
== END 2020-05-05 03:25 | disposition home or self-care (01) ==
LOC: NAV ERS 01:49
DX: R07.89 Other chest pain (principal); G89.29 Other chronic pain; K21.9 Gastro-esophageal reflux disease without esophagitis; J45.909 Unspecified asthma, uncomplicated; Z21 Asymptomatic human immunodeficiency virus [HIV] infection status
CPT/HCPCS: 71045; 80053; 83735; 83880; 84484; 85025; 93005; 94760

== ENCOUNTER 2020-05-17 13:56 | Emergency (ER) | payer SELFPAY ==
[2020-05-18 06:46] LABS: SARS-CoV-2 PCR by NAA Not Detected (NotDetected)
== END 2020-05-17 14:49 | disposition home or self-care (01) ==
LOC: NAV ERS 13:56
DX: Z20.822 Contact with and (suspected) exposure to COVID-19 (principal); K21.9 Gastro-esophageal reflux disease without esophagitis; J45.909 Unspecified asthma, uncomplicated; Z21 Asymptomatic human immunodeficiency virus [HIV] infection status; Z79.899 Other long term (current) drug therapy
CPT/HCPCS: 87635; 99281; U0003; U0005

== ENCOUNTER 2020-06-10 02:05 | Emergency (ER) | payer OTHER, SELFPAY ==
[2020-06-10 02:31] LABS: #Basophils 0.1 thou/uL (0.0-0.2); #Eosinphils 0.3 thou/uL (0.0-0.7); #Lymphocytes 2.1 thou/uL (1.20-3.40); #Monocytes 0.4 thou/uL (0.11-0.59); #Neutrophils 4.5 thou/uL (1.40-6.50); %Basophils 1.5 % (0.0-1.0); %Eosinophils 4.4 % (0.0-10.0); %Lymphocytes 28.1 % (21.0-51.0); %Monocytes 5.6 % (0.0-10.0); %Neutrophils 60.4 % (42.0-75.0); Hemoglobin 12.2 g/dL (12.0-16.0); Mean Corpuscular HGB CONC 30.8 g/dL (32.0-36.0); Mean Corpuscular Hemoglobin 29.3 pg (27.0-31.0); Mean Corpuscular Volume 95.1 fL (78.0-98.0); Mean Platelet Volume 9.4 fL (7.4-10.4); Platelet Count 271 thou/uL (130-400); RBC Distribution Width 12.2 % (11.5-14.5); Red Blood Cell (RBC) Count 4.18 mill/uL (4.20-5.40); White Blood Cell (WBC) Count 7.4 thou/uL (4.8-10.8)
[2020-06-10 02:47] LABS: ALT (SGPT) 19 U/L (8-55); AST (SGOT) 20 U/L (5-34); Alkaline Phosphatase 97 U/L (40-110); Anion Gap 12 mmol/L (10-20); BUN (Urea Nitrogen) 21 mg/dL (7.0-18.7); Bilirubin, Total 0.7 mg/dL (0.2-1.2); Calc. Creatinine Clearance 0 mL/min (70-130); Calcium 9.1 mg/dL (7.8-10.44); Carbon Dioxide 25 mmol/L (22-29); Chloride 105 mmol/L (98-107); Globulin 3.6 g/dL (2.4-3.5); Glucose 112 mg/dL (70-105); Potassium 3.3 mmol/L (3.5-5.1); Protein, Total 7.6 g/dL (6.0-8.3); Sodium 139 mmol/L (136-145)
[2020-06-10] MEDS ORDERED: Potassium Chloride 20 MEQ TAB ONE (03:09)
[2020-06-10 03:11] LABS: Bilirubin Negative (Negative); Blood, Urine Trace (Negative); Clarity Clear (Clear); Glucose, Urine (Dipstick) Negative (Negative); Ketone, Urine Negative (Negative); Leukocyte Negative (Negative); Nitrite Negative (Negative); Protein, Urine (Dipstick) Negative (Neg-Trace); Specific Gravity, Urine 1.015 (1.005-1.030); pH, Urine 5.5 (5.0-9.0)
[2020-06-10 03:12] LABS: Bacteria/HPF None Seen HPF (None Seen); RBC/HPF 0-3 HPF (0-3); Squamous Epithelial None Seen HPF (0-3); WBC/HPF 0-3 HPF (0-3)
== END 2020-06-10 03:30 | disposition home or self-care (01) ==
LOC: NAV ERS 02:05
DX: R07.89 Other chest pain (principal); G89.29 Other chronic pain; E87.6 Hypokalemia; K21.9 Gastro-esophageal reflux disease without esophagitis; J45.909 Unspecified asthma, uncomplicated; Z21 Asymptomatic human immunodeficiency virus [HIV] infection status; Z79.899 Other long term (current) drug therapy
CPT/HCPCS: 71045; 80053; 81003; 81015; 83690; 84484; 85025; 93005; 94760

== ENCOUNTER 2020-09-16 22:15 | Emergency (ER) | payer OTHER, SELFPAY ==
[2020-09-16] MEDS ORDERED: Ketorolac Tromethamine 60 MG/2 ML VIAL ONE (22:44)
== END 2020-09-16 23:25 | disposition home or self-care (01) ==
LOC: NAV ERS 22:15
DX: S39.012A Strain of muscle, fascia and tendon of lower back, initial encounter (principal); K21.9 Gastro-esophageal reflux disease without esophagitis; B20 Human immunodeficiency virus [HIV] disease; W01.0XXA Fall on same level from slipping, tripping and stumbling without subsequent striking against object, initial encounter
CPT/HCPCS: 72131; 96372; J1885

== ENCOUNTER 2020-09-23 09:32 | Emergency (ER) | payer OTHER, SELFPAY ==
[2020-09-23] MEDS ORDERED: Ketorolac Tromethamine 60 MG/2 ML VIAL ONE (10:05)
== END 2020-09-23 10:17 | disposition home or self-care (01) ==
LOC: NAV ERS 09:32
DX: S16.1XXA Strain of muscle, fascia and tendon at neck level, initial encounter (principal); S40.012A Contusion of left shoulder, initial encounter; K21.9 Gastro-esophageal reflux disease without esophagitis; B20 Human immunodeficiency virus [HIV] disease; W20.8XXA Other cause of strike by thrown, projected or falling object, initial encounter
CPT/HCPCS: 96372; 99283; J1885

== ENCOUNTER 2020-10-10 21:02 | Emergency (ER) | payer SELFPAY ==
[2020-10-10] MEDS ORDERED: Ondansetron ODT 4 MG TAB ONE (21:40)
[2020-10-11 16:20] LABS: SARS-CoV-2 PCR by NAA Not Detected (NotDetected)
== END 2020-10-10 22:10 | disposition home or self-care (01) ==
LOC: NAV ERS 21:02
DX: R07.89 Other chest pain (principal); J06.9 Acute upper respiratory infection, unspecified; Z20.822 Contact with and (suspected) exposure to COVID-19; J45.909 Unspecified asthma, uncomplicated; K21.9 Gastro-esophageal reflux disease without esophagitis; Z21 Asymptomatic human immunodeficiency virus [HIV] infection status
CPT/HCPCS: 93005; Q0162; U0003; U0005

== ENCOUNTER 2021-01-02 07:47 | Emergency (ER) | payer MEDICARE, SELFPAY | END 2021-01-02 09:45 | disposition home or self-care (01) | LOC: NAV ERS 07:47 | DX: S29.011A Strain of muscle and tendon of front wall of thorax, initial encounter (principal); R21 Rash and other nonspecific skin eruption; E66.9 Obesity, unspecified; K21.9 Gastro-esophageal reflux disease without esophagitis; J45.909 Unspecified asthma, uncomplicated; Z21 Asymptomatic human immunodeficiency virus [HIV] infection status; X58.XXXA Exposure to other specified factors, initial encounter | CPT/HCPCS: 93005 ==

== ENCOUNTER 2021-01-11 11:27 | Outpatient (CLI) | payer MEDICARE | END 2021-01-11 11:28 | disposition home or self-care (01) | LOC: NAV RAD 11:27 | PROVIDERS: ATTEND Family Medicine | DX: M15.9 Polyosteoarthritis, unspecified (principal) ==

== ENCOUNTER 2021-02-12 19:33 | Emergency (ER) | payer MEDICARE ==
[2021-02-12 20:22] LABS: ALT (SGPT) 20 U/L (8-55); AST (SGOT) 18 U/L (5-34); Albumin 4.1 g/dL (3.5-5.0); Alkaline Phosphatase 108 U/L (40-110); Anion Gap 11 mmol/L (10-20); BUN (Urea Nitrogen) 10 mg/dL (9.8-20.1); Bilirubin, Total 0.4 mg/dL (0.2-1.2); Calc. Creatinine Clearance 0 mL/min (70-130); Calcium 9.7 mg/dL (7.8-10.44); Carbon Dioxide 27 mmol/L (22-29); Chloride 104 mmol/L (98-107); Globulin 4.2 g/dL (2.4-3.5); Glucose 133 mg/dL (70-105); Potassium 3.9 mmol/L (3.5-5.1); Protein, Total 8.3 g/dL (6.0-8.3); Sodium 138 mmol/L (136-145)
[2021-02-12 20:24] LABS: Hemoglobin 12.8 g/dL (12.0-16.0); Mean Corpuscular HGB CONC 32.7 g/dL (32.0-36.0); Mean Corpuscular Hemoglobin 30.5 pg (27.0-31.0); Mean Corpuscular Volume 93.1 fL (78.0-98.0); Mean Platelet Volume 9.2 fL (7.4-10.4); Platelet Count 258 thou/uL (130-400); RBC Distribution Width 12.3 % (11.5-14.5); Red Blood Cell (RBC) Count 4.19 mill/uL (4.20-5.40); White Blood Cell (WBC) Count 8.6 thou/uL (4.8-10.8)
[2021-02-12 20:26] LABS: #Neutrophils 5.2 thou/uL (1.40-6.50); %Basophils 0.8 % (0.0-1.0); %Eosinophils 5.8 % (0.0-10.0); %Lymphocytes 28.6 % (21.0-51.0); %Neutrophils 60.9 % (42.0-75.0)
[2021-02-12 20:27] LABS: #Basophils 0.1 thou/uL (0.0-0.2); #Eosinphils 0.5 thou/uL (0.0-0.7); #Lymphocytes 2.4 thou/uL (1.20-3.40); #Monocytes 0.3 thou/uL (0.11-0.59)
[2021-02-12] MEDS ORDERED: Pantoprazole 40 MG VIAL ONE (20:42)
[2021-02-12] MEDS ORDERED: Acetaminophen 500 MG TAB ONE (20:42)
== END 2021-02-12 20:55 | disposition home or self-care (01) ==
LOC: NAV ERS 19:33
DX: R07.9 Chest pain, unspecified (principal); F41.1 Generalized anxiety disorder; K21.9 Gastro-esophageal reflux disease without esophagitis; J45.909 Unspecified asthma, uncomplicated; E66.9 Obesity, unspecified; Z21 Asymptomatic human immunodeficiency virus [HIV] infection status; Z79.82 Long term (current) use of aspirin; Z79.899 Other long term (current) drug therapy
CPT/HCPCS: 71045; 80053; 84484; 85025; 93005; 94760; 96374; C9113

== ENCOUNTER 2021-03-21 22:17 | Emergency (ER) | payer MEDICARE ==
[2021-03-21 23:01] LABS: #Basophils 0.1 thou/uL (0.0-0.2); #Eosinphils 0.4 thou/uL (0.0-0.7); #Lymphocytes 2.4 thou/uL (1.20-3.40); #Monocytes 0.6 thou/uL (0.11-0.59); #Neutrophils 4.8 thou/uL (1.40-6.50); %Basophils 0.9 % (0.0-1.0); %Eosinophils 5.1 % (0.0-10.0); %Lymphocytes 28.7 % (21.0-51.0); %Monocytes 7.6 % (0.0-10.0); %Neutrophils 57.7 % (42.0-75.0); Hemoglobin 13.3 g/dL (12.0-16.0); Mean Corpuscular HGB CONC 32.3 g/dL (32.0-36.0); Mean Corpuscular Hemoglobin 30.6 pg (27.0-31.0); Mean Corpuscular Volume 94.7 fL (78.0-98.0); Platelet Count 274 thou/uL (130-400); RBC Distribution Width 12.4 % (11.5-14.5); Red Blood Cell (RBC) Count 4.35 mill/uL (4.20-5.40); White Blood Cell (WBC) Count 8.3 thou/uL (4.8-10.8)
[2021-03-21] MEDS ORDERED: Nitroglycerin 2% Ointment 1 INCH/1 GM Packet ONE (23:09)
[2021-03-21] MEDS ORDERED: Aspirin Chewable 81 MG TAB ONE (23:09)
[2021-03-21 23:18] LABS: ALT (SGPT) 14 U/L (8-55); AST (SGOT) 14 U/L (5-34); Albumin 4.1 g/dL (3.5-5.0); Alkaline Phosphatase 107 U/L (40-110); Anion Gap 13 mmol/L (10-20); BUN (Urea Nitrogen) 11 mg/dL (9.8-20.1); Bilirubin, Total 0.5 mg/dL (0.2-1.2); Calc. Creatinine Clearance 0 mL/min (70-130); Calcium 9.3 mg/dL (7.8-10.44); Carbon Dioxide 28 mmol/L (22-29); Chloride 103 mmol/L (98-107); Globulin 3.8 g/dL (2.4-3.5); Glucose 118 mg/dL (70-105); Lipase 21 U/L (8-78); Potassium 3.9 mmol/L (3.5-5.1); Protein, Total 7.9 g/dL (6.0-8.3); Sodium 140 mmol/L (136-145)
[2021-03-22] MEDS ORDERED: Morphine 4 MG/ML VIAL ONE (00:04)
[2021-03-22 01:07] LABS: SARS-CoV-2 NAA Rapid Test DETECTED (NotDetected)
[2021-03-22] MEDS ORDERED: Nitroglycerin 2% Ointment 1 INCH/1 GM Packet ONE (09:10)
[2021-03-22] MEDS ORDERED: Aspirin Chewable 81 MG TAB ONE (09:18)
[2021-03-22 10:52] LABS: Troponin I Less than 0.010 ng/mL (< 0.028)
== END 2021-03-22 20:34 | disposition short-term general hospital (02) ==
LOC: NAV ERS 22:17
DX: U07.1 COVID-19 (principal); K21.9 Gastro-esophageal reflux disease without esophagitis; J45.909 Unspecified asthma, uncomplicated; Z79.82 Long term (current) use of aspirin
CPT/HCPCS: 71045; 80053; 83690; 84484 ×2; 85025; 93005 ×2; 96374; 99285; U0002; J2270

== ENCOUNTER 2021-05-30 18:06 | Emergency (ER) | payer MEDICARE, OTHER ==
[2021-05-30 19:40] LABS: Bilirubin Negative (Negative); Blood, Urine Trace (Negative); Clarity Clear (Clear); Glucose, Urine (Dipstick) Negative (Negative); Ketone, Urine Negative (Negative); Leukocyte Negative (Negative); Nitrite Negative (Negative); Protein, Urine (Dipstick) Negative (Neg-Trace); pH, Urine 5.5 (5.0-9.0)
[2021-05-30 19:43] LABS: Bacteria/HPF 1+ HPF (None Seen); RBC/HPF 0-3 HPF (0-3); WBC/HPF 0-3 HPF (0-3)
[2021-05-30 20:17] LABS: #Basophils 0.1 thou/uL (0.0-0.2); #Eosinphils 0.3 thou/uL (0.0-0.7); #Lymphocytes 1.9 thou/uL (1.20-3.40); #Monocytes 0.6 thou/uL (0.11-0.59); #Neutrophils 4.6 thou/uL (1.40-6.50); %Basophils 1.4 % (0.0-1.0); %Eosinophils 4.1 % (0.0-10.0); %Lymphocytes 25.1 % (21.0-51.0); %Monocytes 7.4 % (0.0-10.0); Hemoglobin 13.1 g/dL (12.0-16.0); Mean Corpuscular Hemoglobin 29.7 pg (27.0-31.0); Mean Corpuscular Volume 92.8 fL (78.0-98.0); Mean Platelet Volume 9.3 fL (7.4-10.4); Platelet Count 258 thou/uL (130-400); RBC Distribution Width 11.8 % (11.5-14.5); Red Blood Cell (RBC) Count 4.42 mill/uL (4.20-5.40); White Blood Cell (WBC) Count 7.4 thou/uL (4.8-10.8)
[2021-05-30 20:34] LABS: ALT (SGPT) 14 U/L (8-55); AST (SGOT) 16 U/L (5-34); Albumin 4.2 g/dL (3.5-5.0); Alkaline Phosphatase 100 U/L (40-110); Anion Gap 12 mmol/L (10-20); BUN (Urea Nitrogen) 11 mg/dL (9.8-20.1); Bilirubin, Total 0.6 mg/dL (0.2-1.2); Calc. Creatinine Clearance 0 mL/min (70-130); Carbon Dioxide 28 mmol/L (22-29); Chloride 103 mmol/L (98-107); Globulin 3.7 g/dL (2.4-3.5); Glucose 93 mg/dL (70-105); Lipase 22 U/L (8-78); Potassium 3.7 mmol/L (3.5-5.1); Protein, Total 7.9 g/dL (6.0-8.3); Sodium 139 mmol/L (136-145)
[2021-05-30] MEDS ORDERED: Ondansetron PF 4 MG/2 ML Vial ONE (21:36)
== END 2021-05-30 21:45 | disposition home or self-care (01) ==
LOC: NAV ERS 18:06
DX: R10.30 Lower abdominal pain, unspecified (principal); R07.9 Chest pain, unspecified; G89.29 Other chronic pain; R11.2 Nausea with vomiting, unspecified; K21.9 Gastro-esophageal reflux disease without esophagitis; J45.909 Unspecified asthma, uncomplicated; B20 Human immunodeficiency virus [HIV] disease; E66.9 Obesity, unspecified; Z68.45 Body mass index [BMI] 70 or greater, adult
CPT/HCPCS: 80053; 81003; 81015; 83690; 83880; 84484; 85025; 93005; 94760; 96374; J2405

== ENCOUNTER 2021-06-03 17:59 | Emergency (ER) | payer MEDICARE ==
[2021-06-03] MEDS ORDERED: Acetaminophen 325 MG TAB ONE (18:44)
[2021-06-03] MEDS ORDERED: Aspirin Chewable 81 MG TAB ONE (18:44)
[2021-06-03 18:49] LABS: #Basophils 0.1 thou/uL (0.0-0.2); #Eosinphils 0.3 thou/uL (0.0-0.7); #Lymphocytes 2.4 thou/uL (1.20-3.40); #Monocytes 0.5 thou/uL (0.11-0.59); #Neutrophils 4.3 thou/uL (1.40-6.50); %Eosinophils 4.5 % (0.0-10.0); %Lymphocytes 31.3 % (21.0-51.0); %Monocytes 6.1 % (0.0-10.0); Hemoglobin 12.8 g/dL (12.0-16.0); Mean Corpuscular HGB CONC 31.8 g/dL (32.0-36.0); Mean Corpuscular Hemoglobin 29.4 pg (27.0-31.0); Mean Corpuscular Volume 92.3 fL (78.0-98.0); Mean Platelet Volume 9.1 fL (7.4-10.4); Platelet Count 251 thou/uL (130-400); RBC Distribution Width 11.9 % (11.5-14.5); Red Blood Cell (RBC) Count 4.34 mill/uL (4.20-5.40); White Blood Cell (WBC) Count 7.5 thou/uL (4.8-10.8)
[2021-06-03 19:01] LABS: ALT (SGPT) 15 U/L (8-55); AST (SGOT) 18 U/L (5-34); Alkaline Phosphatase 99 U/L (40-110); Anion Gap 13 mmol/L (10-20); BUN (Urea Nitrogen) 10 mg/dL (9.8-20.1); Bilirubin, Total 0.6 mg/dL (0.2-1.2); Calc. Creatinine Clearance 0 mL/min (70-130); Calcium 9.1 mg/dL (7.8-10.44); Carbon Dioxide 25 mmol/L (22-29); Chloride 106 mmol/L (98-107); Globulin 3.5 g/dL (2.4-3.5); Glucose 123 mg/dL (70-105); Potassium 3.8 mmol/L (3.5-5.1); Protein, Total 7.5 g/dL (6.0-8.3); Sodium 140 mmol/L (136-145)
== END 2021-06-03 19:20 | disposition home or self-care (01) ==
LOC: NAV ERS 17:59
DX: R07.89 Other chest pain (principal); G89.29 Other chronic pain; I49.8 Other specified cardiac arrhythmias; J45.909 Unspecified asthma, uncomplicated; K21.9 Gastro-esophageal reflux disease without esophagitis; E66.9 Obesity, unspecified; Z21 Asymptomatic human immunodeficiency virus [HIV] infection status; Z79.899 Other long term (current) drug therapy
CPT/HCPCS: 71045; 80053; 84484; 85025; 93005; 94760

== ENCOUNTER 2021-07-08 19:51 | Emergency (ER) | payer OTHER ==
[2021-07-08] MEDS ORDERED: Ondansetron PF 4 MG/2 ML Vial ONE (20:15)
[2021-07-08] MEDS ORDERED: Sodium Chloride 0.9% 1,000 ML ONE (20:15)
[2021-07-08 20:34] LABS: #Basophils 0.1 thou/uL (0.0-0.2); #Eosinphils 0.2 thou/uL (0.0-0.7); #Lymphocytes 2.2 thou/uL (1.20-3.40); #Monocytes 0.6 thou/uL (0.11-0.59); #Neutrophils 5.5 thou/uL (1.40-6.50); %Eosinophils 2.8 % (0.0-10.0); %Lymphocytes 25.2 % (21.0-51.0); %Monocytes 6.9 % (0.0-10.0); %Neutrophils 64.2 % (42.0-75.0); Hemoglobin 11.2 g/dL (12.0-16.0); Mean Corpuscular HGB CONC 30.3 g/dL (32.0-36.0); Mean Corpuscular Hemoglobin 29.2 pg (27.0-31.0); Mean Corpuscular Volume 96.3 fL (78.0-98.0); Mean Platelet Volume 9.8 fL (7.4-10.4); Platelet Count 239 thou/uL (130-400); RBC Distribution Width 12.3 % (11.5-14.5); Red Blood Cell (RBC) Count 3.86 mill/uL (4.20-5.40); White Blood Cell (WBC) Count 8.5 thou/uL (4.8-10.8)
[2021-07-08 20:53] LABS: ALT (SGPT) 17 U/L (8-55); AST (SGOT) 19 U/L (5-34); Albumin 3.9 g/dL (3.5-5.0); Alkaline Phosphatase 97 U/L (40-110); Anion Gap 16 mmol/L (10-20); BUN (Urea Nitrogen) 13 mg/dL (9.8-20.1); Bilirubin, Total 0.5 mg/dL (0.2-1.2); CK (CPK) 172 U/L (29-168); CRP (Inflammatory) 2.05 mg/dL (= or < 0.5); Calc. Creatinine Clearance 0 mL/min (70-130); Carbon Dioxide 26 mmol/L (22-29); Chloride 105 mmol/L (98-107); Globulin 3.5 g/dL (2.4-3.5); Glucose 109 mg/dL (70-105); Magnesium 1.8 mg/dL (1.6-2.6); Potassium 3.6 mmol/L (3.5-5.1); Protein, Total 7.4 g/dL (6.0-8.3); Sodium 143 mmol/L (136-145)
[2021-07-08] MEDS ORDERED: Ketorolac Tromethamine 30 MG/ML VIAL ONE (21:13)
[2021-07-08 22:15] LABS: Bilirubin Negative (Negative); Blood, Urine Small (Negative); Clarity Clear (Clear); Glucose, Urine (Dipstick) Negative (Negative); Ketone, Urine Negative (Negative); Leukocyte Negative (Negative); Nitrite Negative (Negative); Protein, Urine (Dipstick) Negative (Neg-Trace); Specific Gravity, Urine 1.015 (1.005-1.030)
[2021-07-08 23:03] LABS: Bacteria/HPF Rare-Few HPF (None Seen); Squamous Epithelial 0-3 HPF (0-3); WBC/HPF 0-3 HPF (0-3)
== END 2021-07-08 22:36 | disposition home or self-care (01) ==
LOC: NAV ERS 19:51
DX: M79.18 Myalgia, other site (principal); G89.29 Other chronic pain; R07.9 Chest pain, unspecified; R10.30 Lower abdominal pain, unspecified; M79.602 Pain in left arm; M79.601 Pain in right arm; M79.652 Pain in left thigh; M79.651 Pain in right thigh; K21.9 Gastro-esophageal reflux disease without esophagitis; E66.9 Obesity, unspecified
CPT/HCPCS: 71045; 80053; 81003; 81015; 82550; 83735; 84484; 85025; 86140; 93005; 94760; 96374; 96375; J1885; J2405; J7050

== ENCOUNTER 2021-07-25 11:33 | Outpatient (CLI) | payer OTHER | END 2021-07-25 11:34 | disposition home or self-care (01) | LOC: NAV RAD 11:33 | PROVIDERS: ATTEND Nurse Practitioner Family | DX: G89.29 Other chronic pain (principal); M47.816 Spondylosis without myelopathy or radiculopathy, lumbar region; M16.12 Unilateral primary osteoarthritis, left hip | CPT/HCPCS: 72100; 72170 ==

== ENCOUNTER 2021-08-14 16:13 | Emergency (ER) | payer OTHER ==
[2021-08-14 17:01] LABS: #Eosinphils 0.2 thou/uL (0.0-0.7); #Lymphocytes 1.4 thou/uL (1.20-3.40); #Monocytes 0.4 thou/uL (0.11-0.59); #Neutrophils 4.1 thou/uL (1.40-6.50); %Basophils 0.5 % (0.0-1.0); %Eosinophils 3.5 % (0.0-10.0); %Lymphocytes 22.3 % (21.0-51.0); %Monocytes 6.6 % (0.0-10.0); %Neutrophils 67.1 % (42.0-75.0); Hemoglobin 11.2 g/dL (12.0-16.0); Mean Corpuscular HGB CONC 29.7 g/dL (32.0-36.0); Mean Corpuscular Hemoglobin 28.7 pg (27.0-31.0); Mean Corpuscular Volume 96.6 fL (78.0-98.0); Mean Platelet Volume 8.6 fL (7.4-10.4); Platelet Count 248 thou/uL (130-400); RBC Distribution Width 12.5 % (11.5-14.5); Red Blood Cell (RBC) Count 3.91 mill/uL (4.20-5.40); White Blood Cell (WBC) Count 6.1 thou/uL (4.8-10.8)
[2021-08-14] MEDS ORDERED: Aspirin Chewable 81 MG TAB ONE (17:02)
[2021-08-14] MEDS ORDERED: Mag-Al Plus 1200 MG/1200 MG/120 MG/30 ML UDCUP ONE (17:02)
[2021-08-14] MEDS ORDERED: Lidocaine Viscous Sol 2% 15 ml UD Cup ONE (17:02)
[2021-08-14 17:19] LABS: ALT (SGPT) 18 U/L (8-55); AST (SGOT) 16 U/L (5-34); Alkaline Phosphatase 87 U/L (40-110); Anion Gap 13 mmol/L (10-20); BUN (Urea Nitrogen) 9 mg/dL (9.8-20.1); Bilirubin, Total 0.6 mg/dL (0.2-1.2); CK (CPK) 194 U/L (29-168); Calc. Creatinine Clearance 0 mL/min (70-130); Calcium 8.9 mg/dL (7.8-10.44); Carbon Dioxide 26 mmol/L (22-29); Chloride 106 mmol/L (98-107); Globulin 3.8 g/dL (2.4-3.5); Glucose 137 mg/dL (70-105); Lipase 21 U/L (8-78); Potassium 3.2 mmol/L (3.5-5.1); Protein, Total 7.8 g/dL (6.0-8.3); Sodium 142 mmol/L (136-145)
[2021-08-14] MEDS ORDERED: Acetaminophen 500 MG TAB ONE (17:51)
== END 2021-08-14 17:56 | disposition home or self-care (01) ==
LOC: NAV ERS 16:13
DX: R07.9 Chest pain, unspecified (principal); G89.29 Other chronic pain; K21.9 Gastro-esophageal reflux disease without esophagitis; Z79.899 Other long term (current) drug therapy
CPT/HCPCS: 71045; 80053; 82550; 83690; 84484; 85025; 93005

== ENCOUNTER 2021-11-23 14:47 | Emergency (ER) | payer OTHER ==
[2021-11-23 15:43] LABS: Hemoglobin 12.3 g/dL (12.0-16.0); Mean Corpuscular HGB CONC 30.8 g/dL (32.0-36.0); Mean Corpuscular Hemoglobin 29.5 pg (27.0-31.0); Mean Platelet Volume 9.9 fL (7.4-10.4); Platelet Count 245 thou/uL (130-400); RBC Distribution Width 12.8 % (11.5-14.5); Red Blood Cell (RBC) Count 4.17 mill/uL (4.20-5.40); White Blood Cell (WBC) Count 8.4 thou/uL (4.8-10.8)
[2021-11-23 15:54] LABS: ALT (SGPT) 17 U/L (8-55); AST (SGOT) 16 U/L (5-34); Albumin 4.2 g/dL (3.5-5.0); Alkaline Phosphatase 115 U/L (40-110); Anion Gap 14 mmol/L (10-20); BUN (Urea Nitrogen) 14 mg/dL (9.8-20.1); Bilirubin, Total 0.5 mg/dL (0.2-1.2); Calc. Creatinine Clearance 0 mL/min (70-130); Calcium 9.2 mg/dL (7.8-10.44); Carbon Dioxide 27 mmol/L (22-29); Chloride 106 mmol/L (98-107); Estimated GFR 53; Globulin 3.3 g/dL (2.4-3.5); Glucose 120 mg/dL (70-105); Potassium 4.1 mmol/L (3.5-5.1); Protein, Total 7.5 g/dL (6.0-8.3); Sodium 143 mmol/L (136-145)
[2021-11-23 16:15] LABS: Band 1 % (5-11); Eosinophils 2 % (0-10); Lymphocytes 24 % (21-51); MDiff Complete? YES; Monocytes 5 % (0-10); Neutrophil 68 % (42-75); Platelet Morphology Comment Appears Adequate
[2021-11-23 17:35] LABS: Troponin I Less than 0.010 ng/mL (< 0.028)
== END 2021-11-23 17:50 | disposition home or self-care (01) ==
LOC: NAV ERS 14:47
DX: R07.9 Chest pain, unspecified (principal); R06.02 Shortness of breath; N28.9 Disorder of kidney and ureter, unspecified; K21.9 Gastro-esophageal reflux disease without esophagitis
CPT/HCPCS: 36415; 71045; 71275; 80053; 84484; 85025; 85379; 93005; Q9967

== ENCOUNTER 2022-01-31 22:29 | Emergency (ER) | payer OTHER ==
[2022-01-31] MEDS ORDERED: Ondansetron PF 4 MG/2 ML Vial ONE (23:15)
[2022-01-31] MEDS ORDERED: Ketorolac Tromethamine 30 MG/ML VIAL ONE (23:15)
[2022-01-31] MEDS ORDERED: Sodium Chloride 0.9% 1,000 ML ONE (23:15)
[2022-01-31 23:25] LABS: #Basophils 0.1 thou/uL (0.0-0.2); #Eosinphils 0.3 thou/uL (0.0-0.7); #Lymphocytes 1.8 thou/uL (1.20-3.40); #Monocytes 0.5 thou/uL (0.11-0.59); #Neutrophils 5.1 thou/uL (1.40-6.50); %Basophils 0.8 % (0.0-1.0); %Lymphocytes 23.4 % (21.0-51.0); %Monocytes 6.5 % (0.0-10.0); %Neutrophils 65.3 % (42.0-75.0); Mean Corpuscular HGB CONC 31.4 g/dL (32.0-36.0); Mean Corpuscular Hemoglobin 29.9 pg (27.0-31.0); Mean Corpuscular Volume 95.1 fl (78.0-98.0); Mean Platelet Volume 8.3 fL (7.4-10.4); Platelet Count 250 10x3/uL (130-400); RBC Distribution Width 12.1 % (11.5-14.5); Red Blood Cell (RBC) Count 4.03 mill/uL (4.20-5.40); White Blood Cell (WBC) Count 7.8 10x3/uL (4.8-10.8)
[2022-01-31 23:42] LABS: ALT (SGPT) 21 U/L (8-55); AST (SGOT) 19 U/L (5-34); Albumin 3.9 g/dL (3.5-5.0); Alkaline Phosphatase 99 U/L (40-110); Anion Gap 11 mmol/L (10-20); BUN (Urea Nitrogen) 14 mg/dL (9.8-20.1); Bilirubin, Total 0.6 mg/dL (0.2-1.2); Calc. Creatinine Clearance 0 mL/min (70-130); Calcium 9.2 mg/dL (7.8-10.44); Carbon Dioxide 27 mmol/L (22-29); Chloride 104 mmol/L (98-107); Estimated GFR 64; Globulin 3.4 g/dL (2.4-3.5); Glucose 101 mg/dL (70-105); Lipase 14 U/L (8-78); Potassium 3.4 mmol/L (3.5-5.1); Protein, Total 7.3 g/dL (6.0-8.3); Sodium 139 mmol/L (136-145)
[2022-02-01] MEDS ORDERED: Amoxicillin/Potassium Clav 875 MG TAB ONE (00:21)
== END 2022-02-01 00:28 | disposition home or self-care (01) ==
LOC: NAV ERS 22:29
DX: J06.9 Acute upper respiratory infection, unspecified (principal); K21.9 Gastro-esophageal reflux disease without esophagitis; B20 Human immunodeficiency virus [HIV] disease; Z79.899 Other long term (current) drug therapy
CPT/HCPCS: 71045; 80053; 83690; 85025; 87804; 96361; 96374; 96375; J1885; J2405; J7050

== ENCOUNTER 2022-02-23 11:09 | Emergency (ER) | payer OTHER | END 2022-02-23 13:25 | disposition home or self-care (01) | LOC: NAV ERS 11:09 | DX: J30.9 Allergic rhinitis, unspecified (principal); Z20.822 Contact with and (suspected) exposure to COVID-19; K21.9 Gastro-esophageal reflux disease without esophagitis; B20 Human immunodeficiency virus [HIV] disease; Z79.899 Other long term (current) drug therapy | CPT/HCPCS: U0003; U0005; 99283 ==

== ENCOUNTER 2022-03-12 15:53 | Emergency (ER) | payer OTHER, SELFPAY | END 2022-03-12 17:11 | disposition home or self-care (01) | LOC: NAV ERS 15:53 | DX: B34.9 Viral infection, unspecified (principal); Z20.822 Contact with and (suspected) exposure to COVID-19; K21.9 Gastro-esophageal reflux disease without esophagitis; Z21 Asymptomatic human immunodeficiency virus [HIV] infection status | CPT/HCPCS: 87804; 99283; U0003; U0005 ==

== ENCOUNTER 2022-05-01 09:40 | Emergency (ER) | payer OTHER ==
[2022-05-01 11:45] LABS: ALT (SGPT) 23 U/L (8-55); AST (SGOT) 24 U/L (5-34); Albumin 4.1 g/dL (3.5-5.0); Alkaline Phosphatase 96 U/L (40-110); Anion Gap 14 mmol/L (10-20); BUN (Urea Nitrogen) 9 mg/dL (9.8-20.1); Bilirubin, Total 0.7 mg/dL (0.2-1.2); Calc. Creatinine Clearance 0 mL/min (70-130); Calcium 9.4 mg/dL (7.8-10.44); Carbon Dioxide 24 mmol/L (22-29); Chloride 107 mmol/L (98-107); Estimated GFR 79; Globulin 3.6 g/dL (2.4-3.5); Glucose 94 mg/dL (70-105); Potassium 3.8 mmol/L (3.5-5.1); Protein, Total 7.7 g/dL (6.0-8.3); Sodium 141 mmol/L (136-145)
[2022-05-01 11:47] LABS: #Basophils 0.1 thou/uL (0.0-0.2); #Eosinphils 0.3 thou/uL (0.0-0.7); #Monocytes 0.5 thou/uL (0.11-0.59); #Neutrophils 4.6 thou/uL (1.40-6.50); %Basophils 1.1 % (0.0-1.0); %Lymphocytes 26.7 % (21.0-51.0); %Monocytes 6.3 % (0.0-10.0); Hemoglobin 12.5 g/dL (12.0-16.0); Mean Corpuscular HGB CONC 31.3 g/dL (32.0-36.0); Mean Corpuscular Hemoglobin 29.8 pg (27.0-31.0); Mean Corpuscular Volume 95.2 fl (78.0-98.0); Mean Platelet Volume 9.3 fL (7.4-10.4); Platelet Count 253 10x3/uL (130-400); RBC Distribution Width 12.8 % (11.5-14.5); Red Blood Cell (RBC) Count 4.21 mill/uL (4.20-5.40); White Blood Cell (WBC) Count 7.5 10x3/uL (4.8-10.8)
== END 2022-05-01 12:02 | disposition left against medical advice (07) ==
LOC: NAV ERS 09:40
DX: J06.9 Acute upper respiratory infection, unspecified (principal); K21.9 Gastro-esophageal reflux disease without esophagitis; B20 Human immunodeficiency virus [HIV] disease; Z20.822 Contact with and (suspected) exposure to COVID-19
CPT/HCPCS: 71045; 80053; 83605; 85025; 87804; U0003; U0005

== ENCOUNTER 2022-06-20 18:23 | Emergency (ER) | payer OTHER ==
[2022-06-20 18:49] LABS: #Basophils 0.1 thou/uL (0.0-0.2); #Eosinphils 0.4 thou/uL (0.0-0.7); #Lymphocytes 2.2 thou/uL (1.20-3.40); #Monocytes 0.6 thou/uL (0.11-0.59); #Neutrophils 5.1 thou/uL (1.40-6.50); %Basophils 0.7 % (0.0-1.0); %Eosinophils 4.9 % (0.0-10.0); %Lymphocytes 26.1 % (21.0-51.0); %Neutrophils 61.4 % (42.0-75.0); Hemoglobin 12.1 g/dL (12.0-16.0); Mean Corpuscular Hemoglobin 29.6 pg (27.0-31.0); Mean Corpuscular Volume 95.7 fl (78.0-98.0); Mean Platelet Volume 9.2 fL (7.4-10.4); Platelet Count 224 10x3/uL (130-400); RBC Distribution Width 12.5 % (11.5-14.5); White Blood Cell (WBC) Count 8.3 10x3/uL (4.8-10.8)
[2022-06-20] MEDS ORDERED: Ketorolac Tromethamine 30 MG/ML VIAL ONE (19:03)
[2022-06-20] MEDS ORDERED: Aspirin Chewable 81 MG TAB ONE (19:03)
[2022-06-20] MEDS ORDERED: Mag-Al Plus 1200 MG/1200 MG/120 MG/30 ML UDCUP ONE (19:14)
[2022-06-20] MEDS ORDERED: Lidocaine Viscous Sol 2% 15 ml UD Cup ONE (19:14)
[2022-06-20 19:26] LABS: ALT (SGPT) 18 U/L (8-55); AST (SGOT) 17 U/L (5-34); Albumin 4.1 g/dL (3.5-5.0); Alkaline Phosphatase 89 U/L (40-110); Anion Gap 14 mmol/L (10-20); BUN (Urea Nitrogen) 10 mg/dL (9.8-20.1); Bilirubin, Total 0.5 mg/dL (0.2-1.2); CK (CPK) 213 U/L (29-168); Calc. Creatinine Clearance 0 mL/min (70-130); Calcium 9.6 mg/dL (7.8-10.44); Carbon Dioxide 27 mmol/L (22-29); Chloride 104 mmol/L (98-107); Estimated GFR 69; Globulin 3.3 g/dL (2.4-3.5); Glucose 119 mg/dL (70-105); Lipase 19 U/L (8-78); Potassium 3.5 mmol/L (3.5-5.1); Protein, Total 7.4 g/dL (6.0-8.3); Sodium 141 mmol/L (136-145)
[2022-06-20 21:49] LABS: Troponin I Less than 0.010 ng/mL (< 0.028)
== END 2022-06-20 21:55 | disposition home or self-care (01) ==
LOC: NAV ERS 18:23
DX: R07.89 Other chest pain (principal); B20 Human immunodeficiency virus [HIV] disease
CPT/HCPCS: 71046; 80053; 82550; 83690; 83880; 84443; 84484; 85025; 85379; 93005; 96374; J1885

== ENCOUNTER 2022-07-04 19:17 | Emergency (ER) | payer OTHER ==
[2022-07-04 20:16] LABS: Bilirubin Negative (Negative); Blood, Urine Trace (Negative); Clarity Clear (Clear); Glucose, Urine (Dipstick) Negative (Negative); Ketone, Urine Negative (Negative); Leukocyte Negative (Negative); Nitrite Negative (Negative); Protein, Urine (Dipstick) Negative (Neg-Trace); Urobilinogen 0.2 mg/dL (Less than 2); pH, Urine 6.5 (5.0-9.0)
[2022-07-04 20:25] LABS: RBC/HPF 0-3 HPF (0-3); Squamous Epithelial 0-3 HPF (0-3)
[2022-07-04] MEDS ORDERED: Ondansetron ODT 4 MG TAB ONE (20:31)
[2022-07-04] MEDS ORDERED: Sucralfate 1 GM TAB ONE (20:31)
[2022-07-04 20:49] LABS: #Basophils 0.1 thou/uL (0.0-0.2); #Eosinphils 0.3 thou/uL (0.0-0.7); #Lymphocytes 2.3 thou/uL (1.20-3.40); #Monocytes 0.5 thou/uL (0.11-0.59); #Neutrophils 5.1 thou/uL (1.40-6.50); %Eosinophils 3.9 % (0.0-10.0); %Lymphocytes 27.6 % (21.0-51.0); %Monocytes 5.8 % (0.0-10.0); %Neutrophils 61.8 % (42.0-75.0); Hemoglobin 12.2 g/dL (12.0-16.0); Mean Corpuscular HGB CONC 31.8 g/dL (32.0-36.0); Mean Corpuscular Hemoglobin 30.5 pg (27.0-31.0); Platelet Count 229 10x3/uL (130-400); RBC Distribution Width 12.9 % (11.5-14.5); Red Blood Cell (RBC) Count 4.01 mill/uL (4.20-5.40); White Blood Cell (WBC) Count 8.3 10x3/uL (4.8-10.8)
[2022-07-04 21:06] LABS: ALT (SGPT) 23 U/L (8-55); AST (SGOT) 21 U/L (5-34); Albumin 4.1 g/dL (3.5-5.0); Alkaline Phosphatase 100 U/L (40-110); Anion Gap 16 mmol/L (10-20); BUN (Urea Nitrogen) 13 mg/dL (9.8-20.1); Bilirubin, Total 0.5 mg/dL (0.2-1.2); Calc. Creatinine Clearance 0 mL/min (70-130); Calcium 9.2 mg/dL (7.8-10.44); Carbon Dioxide 25 mmol/L (22-29); Chloride 106 mmol/L (98-107); Estimated GFR 71; Globulin 3.9 g/dL (2.4-3.5); Glucose 104 mg/dL (70-105); Lipase 20 U/L (8-78); Potassium 3.6 mmol/L (3.5-5.1); Sodium 143 mmol/L (136-145)
== END 2022-07-04 21:54 | disposition home or self-care (01) ==
LOC: NAV ERS 19:17
DX: K29.70 Gastritis, unspecified, without bleeding (principal); J45.909 Unspecified asthma, uncomplicated
CPT/HCPCS: 80053; 81003; 81015; 83690; 84484; 85025; 93005; Q0162

== ENCOUNTER 2022-09-11 01:01 | Emergency (ER) | payer OTHER ==
[2022-09-11] MEDS ORDERED: methylPREDNISolone Acetate 40 mg/ml Vial ONE (01:48)
[2022-09-11] MEDS ORDERED: Naproxen 500 MG TAB ONE (01:48)
== END 2022-09-11 02:03 | disposition home or self-care (01) ==
LOC: NAV ERS 01:01
DX: S29.012A Strain of muscle and tendon of back wall of thorax, initial encounter (principal); J06.9 Acute upper respiratory infection, unspecified; J30.9 Allergic rhinitis, unspecified; K21.9 Gastro-esophageal reflux disease without esophagitis; X50.1XXA Overexertion from prolonged static or awkward postures, initial encounter
CPT/HCPCS: 96372; 99283; J1030

== ENCOUNTER 2022-09-25 16:24 | Emergency (ER) | payer OTHER | END 2022-09-25 17:05 | disposition home or self-care (01) | LOC: NAV ERS 16:24 | DX: B34.9 Viral infection, unspecified (principal) | CPT/HCPCS: 99283 ==

== ENCOUNTER 2022-10-01 21:37 | Emergency (ER) | payer OTHER ==
[2022-10-01] MEDS ORDERED: Ibuprofen 800 MG TAB ONE (22:04)
[2022-10-01 22:37] LABS: Anion Gap 12 mmol/L (10-20); BUN (Urea Nitrogen) 15 mg/dL (9.8-20.1); Calc. Creatinine Clearance 0 mL/min (70-130); Calcium 9.2 mg/dL (7.8-10.44); Chloride 104 mmol/L (98-107); Estimated GFR 65; Glucose 94 mg/dL (70-105); Sodium 140 mmol/L (136-145)
[2022-10-01 22:42] LABS: Carbon Dioxide 28 mmol/L (22-29)
== END 2022-10-01 22:53 | disposition home or self-care (01) ==
LOC: NAV ERS 21:37
DX: M79.10 Myalgia, unspecified site (principal); B20 Human immunodeficiency virus [HIV] disease
CPT/HCPCS: 36415; 80048; 99283

== ENCOUNTER 2022-10-15 21:10 | Emergency (ER) | payer OTHER, SELFPAY | END 2022-10-15 21:35 | disposition home or self-care (01) | LOC: NAV ERS 21:10 | DX: M25.512 Pain in left shoulder (principal); B20 Human immunodeficiency virus [HIV] disease | CPT/HCPCS: 99283 ==

== ENCOUNTER 2022-11-09 17:56 | Emergency (ER) | payer OTHER | END 2022-11-09 18:51 | disposition home or self-care (01) | LOC: NAV ERS 17:56 | DX: U07.1 COVID-19 (principal); R11.2 Nausea with vomiting, unspecified; K21.9 Gastro-esophageal reflux disease without esophagitis; J45.909 Unspecified asthma, uncomplicated; Z79.82 Long term (current) use of aspirin; Z79.899 Other long term (current) drug therapy | CPT/HCPCS: 87635; 99284 ==

== ENCOUNTER 2022-11-23 16:15 | Emergency (ER) | payer OTHER ==
[2022-11-23 16:55] LABS: #Basophils 0.1 thou/uL (0.0-0.2); #Eosinphils 0.4 thou/uL (0.0-0.7); #Lymphocytes 2.6 thou/uL (1.20-3.40); #Monocytes 0.6 thou/uL (0.11-0.59); #Neutrophils 5.1 thou/uL (1.40-6.50); %Basophils 0.6 % (0.0-1.0); %Eosinophils 4.5 % (0.0-10.0); %Lymphocytes 29.8 % (21.0-51.0); %Monocytes 6.9 % (0.0-10.0); %Neutrophils 58.2 % (42.0-75.0); Hematocrit 38.7 % (36.0-47.0); Hemoglobin 12.4 g/dL (12.0-16.0); Mean Corpuscular Hemoglobin 29.7 pg (27.0-31.0); Mean Corpuscular Volume 92.7 fl (78.0-98.0); Mean Platelet Volume 8.8 fL (7.4-10.4); Platelet Count 250 10x3/uL (130-400); RBC Distribution Width 12.3 % (11.5-14.5); Red Blood Cell (RBC) Count 4.17 mill/uL (4.20-5.40); White Blood Cell (WBC) Count 8.8 10x3/uL (4.8-10.8)
[2022-11-23 17:10] LABS: ALT (SGPT) 22 U/L (8-55); AST (SGOT) 20 U/L (5-34); Albumin 4.2 g/dL (3.5-5.0); Alkaline Phosphatase 81 U/L (40-110); Anion Gap 12 mmol/L (10-20); BUN (Urea Nitrogen) 10 mg/dL (9.8-20.1); Bilirubin, Total 0.6 mg/dL (0.2-1.2); Calc. Creatinine Clearance 0 mL/min (70-130); Calcium 9.4 mg/dL (7.8-10.44); Carbon Dioxide 26 mmol/L (22-29); Chloride 103 mmol/L (98-107); Estimated GFR 74; Globulin 3.5 g/dL (2.4-3.5); Glucose 100 mg/dL (70-105); Lipase 11 U/L (8-78); Potassium 3.4 mmol/L (3.5-5.1); Protein, Total 7.7 g/dL (6.0-8.3); Sodium 138 mmol/L (136-145)
[2022-11-23 17:11] LABS: Troponin I Less than 0.010 ng/mL (< 0.028)
[2022-11-23 20:17] LABS: Troponin I Less than 0.010 ng/mL (< 0.028)
== END 2022-11-23 20:34 | disposition home or self-care (01) ==
LOC: NAV ERS 16:15
DX: R07.9 Chest pain, unspecified (principal); R05.9 Cough, unspecified; J45.909 Unspecified asthma, uncomplicated; Z86.16 Personal history of COVID-19; Z79.82 Long term (current) use of aspirin
CPT/HCPCS: 36415; 71045; 71275; 80053; 83690; 84484; 85025; 85379; 93005; Q9967

== ENCOUNTER 2023-01-07 01:01 | Emergency (ER) | payer OTHER ==
[2023-01-07] MEDS ORDERED: Ketorolac Tromethamine 30 MG/ML VIAL ONE (01:26)
== END 2023-01-07 01:37 | disposition home or self-care (01) ==
LOC: NAV ERS 01:01
DX: B34.9 Viral infection, unspecified (principal); J45.909 Unspecified asthma, uncomplicated; Z79.82 Long term (current) use of aspirin; Z20.822 Contact with and (suspected) exposure to COVID-19
CPT/HCPCS: 87635; 96372; 99283; J1885

== ENCOUNTER 2023-01-22 23:06 | Emergency (ER) | payer OTHER ==
[2023-01-22 23:43] LABS: #Basophils 0.1 thou/uL (0.0-0.2); #Eosinphils 0.4 thou/uL (0.0-0.7); #Lymphocytes 2.3 thou/uL (1.20-3.40); #Monocytes 0.6 thou/uL (0.11-0.59); %Basophils 1.1 % (0.0-1.0); %Eosinophils 4.8 % (0.0-10.0); %Lymphocytes 27.2 % (21.0-51.0); %Monocytes 7.2 % (0.0-10.0); %Neutrophils 59.6 % (42.0-75.0); Hematocrit 37.5 % (36.0-47.0); Hemoglobin 12.4 g/dL (12.0-16.0); Mean Corpuscular HGB CONC 33.1 g/dL (32.0-36.0); Mean Corpuscular Hemoglobin 30.8 pg (27.0-31.0); Mean Corpuscular Volume 92.9 fl (78.0-98.0); Mean Platelet Volume 9.7 fL (7.4-10.4); Platelet Count 242 10x3/uL (130-400); RBC Distribution Width 11.9 % (11.5-14.5); Red Blood Cell (RBC) Count 4.04 mill/uL (4.20-5.40); White Blood Cell (WBC) Count 8.3 10x3/uL (4.8-10.8)
[2023-01-22] MEDS ORDERED: Aspirin Chewable 81 MG TAB ONE (23:52)
[2023-01-22] MEDS ORDERED: Nitroglycerin 2% Ointment 1 INCH/1 GM Packet ONE (23:52)
[2023-01-23] LABS: ALT (SGPT) 17 U/L (8-55); AST (SGOT) 18 U/L (5-34); Albumin 4.1 g/dL (3.5-5.0); Alkaline Phosphatase 87 U/L (40-110); Anion Gap 15 mmol/L (10-20); BUN (Urea Nitrogen) 9 mg/dL (9.8-20.1); Bilirubin, Total 0.4 mg/dL (0.2-1.2); Calc. Creatinine Clearance 0 mL/min (70-130); Carbon Dioxide 25 mmol/L (22-29); Chloride 103 mmol/L (98-107); Estimated GFR 84; Globulin 3.5 g/dL (2.4-3.5); Glucose 104 mg/dL (70-105); Lipase 14 U/L (8-78); Potassium 3.5 mmol/L (3.5-5.1); Protein, Total 7.6 g/dL (6.0-8.3); Sodium 139 mmol/L (136-145)
[2023-01-23 00:01] LABS: Troponin I Less than 0.010 ng/mL (< 0.028)
[2023-01-23 02:57] LABS: Troponin I Less than 0.010 ng/mL (< 0.028)
== END 2023-01-23 03:17 | disposition home or self-care (01) ==
LOC: NAV ERS 23:06
DX: R07.89 Other chest pain (principal); Z79.82 Long term (current) use of aspirin
CPT/HCPCS: 71045; 80053; 83690; 84484; 85025; 93005

== ENCOUNTER 2023-02-21 16:00 | Emergency (ER) | payer OTHER ==
[2023-02-21] MEDS ORDERED: Triple Antibiotic Oint 1 GM Packet ONE (16:14)
== END 2023-02-21 16:19 | disposition home or self-care (01) ==
LOC: NAV ERS 16:00
DX: T63.441A Toxic effect of venom of bees, accidental (unintentional), initial encounter (principal); M54.6 Pain in thoracic spine
CPT/HCPCS: 99282

== ENCOUNTER 2023-04-09 09:15 | Outpatient (CLI) | payer OTHER | END 2023-04-09 09:16 | disposition home or self-care (01) | LOC: NAV RAD 09:15 | PROVIDERS: ATTEND Student in an Organized Health Care Education/Training Program | DX: M25.562 Pain in left knee (principal); M17.12 Unilateral primary osteoarthritis, left knee; M25.462 Effusion, left knee ==

== ENCOUNTER 2023-04-13 11:02 | Emergency (ER) | payer OTHER | END 2023-04-13 12:00 | disposition home or self-care (01) | LOC: NAV ERS 11:02 | DX: R51.9 Headache, unspecified (principal); Z77.21 Contact with and (suspected) exposure to potentially hazardous body fluids | CPT/HCPCS: 87635; 87804; 99284 ==

== ENCOUNTER 2023-07-14 08:55 | Emergency (ER) | payer OTHER ==
[2023-07-14] MEDS ORDERED: Ketorolac Tromethamine 60 MG/2 ML VIAL ONE (09:19)
[2023-07-14 10:07] LABS: Bilirubin Negative (Negative); Blood, Urine Trace (Negative); Glucose, Urine (Dipstick) Negative (Negative); Ketone, Urine Negative (Negative); Leukocyte Negative (Negative); Nitrite Negative (Negative); Protein, Urine (Dipstick) Negative (Neg-Trace); Specific Gravity, Urine 1.015 (1.005-1.030); pH, Urine 7.5 (5.0-9.0)
[2023-07-14 10:22] LABS: CAUTI Indications for Culture Pelvic or flank pain; Clarity Hazy (Clear); RBC/HPF 0-3 HPF (0-3); WBC/HPF None Seen HPF (0-3)
[2023-07-14 10:23] LABS: Urine Culture Reflex No No
== END 2023-07-14 10:41 | disposition home or self-care (01) ==
LOC: NAV ERS 08:55
DX: S76.012A Strain of muscle, fascia and tendon of left hip, initial encounter (principal); S39.012A Strain of muscle, fascia and tendon of lower back, initial encounter; K21.9 Gastro-esophageal reflux disease without esophagitis; Z79.899 Other long term (current) drug therapy; X58.XXXA Exposure to other specified factors, initial encounter
CPT/HCPCS: 72170; 81001; 96372; J1885

== ENCOUNTER 2023-08-13 22:18 | Emergency (ER) | payer OTHER | END 2023-08-13 23:10 | disposition home or self-care (01) | LOC: NAV ERS 22:18 | DX: J32.9 Chronic sinusitis, unspecified (principal) | CPT/HCPCS: 99283 ==

== ENCOUNTER 2023-09-06 20:29 | Emergency (ER) | payer OTHER ==
[2023-09-06] MEDS ORDERED: diphenhydrAMINE 25 MG CAP ONE (20:51)
[2023-09-06] MEDS ORDERED: Ibuprofen 200 MG TAB ONE (20:52)
== END 2023-09-06 20:59 | disposition home or self-care (01) ==
LOC: NAV ERS 20:29
DX: S50.861A Insect bite (nonvenomous) of right forearm, initial encounter (principal); W57.XXXA Bitten or stung by nonvenomous insect and other nonvenomous arthropods, initial encounter
CPT/HCPCS: 99282

== ENCOUNTER 2023-09-10 12:02 | Emergency (ER) | payer OTHER ==
[2023-09-10] MEDS ORDERED: Cephalexin 250 MG CAP ONE (12:38)
== END 2023-09-10 12:50 | disposition home or self-care (01) ==
LOC: NAV ERS 12:02
DX: S29.012A Strain of muscle and tendon of back wall of thorax, initial encounter (principal); L03.811 Cellulitis of head [any part, except face]; H92.02 Otalgia, left ear; B20 Human immunodeficiency virus [HIV] disease; X50.0XXA Overexertion from strenuous movement or load, initial encounter
CPT/HCPCS: 99283

== ENCOUNTER 2023-10-03 17:34 | Emergency (ER) | payer OTHER ==
[2023-10-03 18:47] LABS: Influenza A by NAA Not Detected (NotDetected); Influenza B by NAA Not Detected (NotDetected); SARS-CoV-2 NAA Rapid Test Not Detected (NotDetected)
== END 2023-10-03 19:13 | disposition home or self-care (01) ==
LOC: NAV ERS 17:34
DX: J06.9 Acute upper respiratory infection, unspecified (principal); K21.9 Gastro-esophageal reflux disease without esophagitis; B20 Human immunodeficiency virus [HIV] disease; Z79.899 Other long term (current) drug therapy
CPT/HCPCS: 0240U; 99283

== ENCOUNTER 2023-11-14 21:11 | Emergency (ER) | payer OTHER ==
[2023-11-14 21:41] LABS: #Basophils 0.1 thou/uL (0.0-0.2); #Eosinphils 0.3 thou/uL (0.0-0.7); #Lymphocytes 2.3 thou/uL (1.20-3.40); #Monocytes 0.5 thou/uL (0.11-0.59); #Neutrophils 4.2 thou/uL (1.40-6.50); %Basophils 0.7 % (0.0-1.0); %Eosinophils 3.8 % (0.0-10.0); %Lymphocytes 31.5 % (21.0-51.0); %Monocytes 7.2 % (0.0-10.0); %Neutrophils 56.8 % (42.0-75.0); Hematocrit 37.3 % (36.0-47.0); Hemoglobin 11.7 g/dL (12.0-16.0); Mean Corpuscular HGB CONC 31.4 g/dL (32.0-36.0); Mean Corpuscular Hemoglobin 27.7 pg (27.0-31.0); Mean Corpuscular Volume 88.1 fl (78.0-98.0); Mean Platelet Volume 8.8 fL (7.4-10.4); Platelet Count 228 10x3/uL (130-400); RBC Distribution Width 12.3 % (11.5-14.5); Red Blood Cell (RBC) Count 4.23 mill/uL (4.20-5.40); White Blood Cell (WBC) Count 7.3 10x3/uL (4.8-10.8)
[2023-11-14 22:01] LABS: ALT (SGPT) 20 U/L (8-55); AST (SGOT) 22 U/L (5-34); Albumin 3.8 g/dL (3.5-5.0); Alkaline Phosphatase 82 U/L (40-110); Anion Gap 14 mmol/L (10-20); BUN (Urea Nitrogen) 10 mg/dL (9.8-20.1); Bilirubin, Total 0.6 mg/dL (0.2-1.2); Calc. Creatinine Clearance 0 mL/min (70-130); Calcium 9.4 mg/dL (7.8-10.44); Carbon Dioxide 26 mmol/L (22-29); Chloride 104 mmol/L (98-107); Estimated GFR 69; Globulin 3.9 g/dL (2.4-3.5); Glucose 98 mg/dL (70-105); Potassium 3.6 mmol/L (3.5-5.1); Protein, Total 7.7 g/dL (6.0-8.3); Sodium 140 mmol/L (136-145); Troponin I Less than 0.010 ng/mL (< 0.028)
[2023-11-14] MEDS ORDERED: Ketorolac Tromethamine 30 MG (1 mL) VIAL ONE (22:05)
== END 2023-11-14 22:15 | disposition home or self-care (01) ==
LOC: NAV ERS 21:11
DX: M94.0 Chondrocostal junction syndrome [Tietze] (principal)
CPT/HCPCS: 71045; 80053; 84484; 85025; 93005; 96374; J1885

== ENCOUNTER 2023-11-23 19:40 | Emergency (ER) | payer OTHER ==
[2023-11-23] MEDS ORDERED: Ondansetron ODT 4 MG TAB ONE (20:35)
[2023-11-23 21:08] LABS: Anion Gap 13 mmol/L (10-20); BUN (Urea Nitrogen) 9 mg/dL (9.8-20.1); Calc. Creatinine Clearance 0 mL/min (70-130); Calcium 9.3 mg/dL (7.8-10.44); Carbon Dioxide 24 mmol/L (22-29); Chloride 105 mmol/L (98-107); Estimated GFR 80; Glucose 134 mg/dL (70-105); Potassium 3.5 mmol/L (3.5-5.1); Sodium 138 mmol/L (136-145)
== END 2023-11-23 21:41 | disposition home or self-care (01) ==
LOC: NAV ERS 19:40
DX: K52.9 Noninfective gastroenteritis and colitis, unspecified (principal)
CPT/HCPCS: 80048; 99284; Q0162

== ENCOUNTER 2023-11-27 07:18 | Emergency (ER) | payer OTHER ==
[2023-11-27] MEDS ORDERED: Ondansetron ODT 4 MG TAB ONE (07:54)
[2023-11-27 08:31] LABS: #Eosinphils 0.2 thou/uL (0.0-0.7); #Lymphocytes 1.6 thou/uL (1.20-3.40); #Monocytes 0.5 thou/uL (0.11-0.59); #Neutrophils 3.7 thou/uL (1.40-6.50); %Basophils 0.5 % (0.0-1.0); %Eosinophils 3.9 % (0.0-10.0); %Lymphocytes 26.6 % (21.0-51.0); %Monocytes 8.4 % (0.0-10.0); %Neutrophils 60.6 % (42.0-75.0); Hematocrit 38.3 % (36.0-47.0); Hemoglobin 12.3 g/dL (12.0-16.0); Mean Corpuscular Hemoglobin 29.3 pg (27.0-31.0); Mean Corpuscular Volume 91.5 fl (78.0-98.0); Mean Platelet Volume 8.9 fL (7.4-10.4); Platelet Count 253 10x3/uL (130-400); RBC Distribution Width 11.8 % (11.5-14.5); Red Blood Cell (RBC) Count 4.18 mill/uL (4.20-5.40); White Blood Cell (WBC) Count 6.1 10x3/uL (4.8-10.8)
[2023-11-27 08:46] LABS: ALT (SGPT) 39 U/L (8-55); AST (SGOT) 28 U/L (5-34); Albumin 3.7 g/dL (3.5-5.0); Alkaline Phosphatase 86 U/L (40-110); Anion Gap 14 mmol/L (10-20); BUN (Urea Nitrogen) 12 mg/dL (9.8-20.1); Bilirubin, Total 0.8 mg/dL (0.2-1.2); Calc. Creatinine Clearance 0 mL/min (70-130); Calcium 9.3 mg/dL (7.8-10.44); Carbon Dioxide 28 mmol/L (22-29); Chloride 105 mmol/L (98-107); Estimated GFR 89; Globulin 3.8 g/dL (2.4-3.5); Glucose 110 mg/dL (70-105); Lipase 22 U/L (8-78); Potassium 3.5 mmol/L (3.5-5.1); Protein, Total 7.5 g/dL (6.0-8.3); Sodium 143 mmol/L (136-145)
[2023-11-27 09:29] LABS: Bilirubin Negative (Negative); Blood, Urine Trace (Negative); Clarity Clear (Clear); Glucose, Urine (Dipstick) Negative (Negative); Ketone, Urine Negative (Negative); Leukocyte Negative (Negative); Nitrite Negative (Negative); Protein, Urine (Dipstick) Negative (Neg-Trace); Specific Gravity, Urine 1.015 (1.005-1.030)
[2023-11-27 09:37] LABS: Bacteria/HPF Rare-Few HPF (None Seen); CAUTI Indications for Culture Alt mental st,lethar; RBC/HPF 0-3 HPF (0-3); WBC/HPF 0-3 HPF (0-3)
[2023-11-27 09:38] LABS: Urine Culture Reflex No No
== END 2023-11-27 10:10 | disposition home or self-care (01) ==
LOC: NAV ERS 07:18
DX: R53.1 Weakness (principal); R00.2 Palpitations; Z55.6 Problems related to health literacy
CPT/HCPCS: 80053; 81001; 83690; 85025; 93005; 99285; Q0162; 36415

== ENCOUNTER 2023-12-02 08:13 | Emergency (ER) | payer OTHER | END 2023-12-02 09:10 | disposition home or self-care (01) | LOC: NAV ERS 08:13 | DX: R21 Rash and other nonspecific skin eruption (principal); K21.9 Gastro-esophageal reflux disease without esophagitis; B20 Human immunodeficiency virus [HIV] disease; I10 Essential (primary) hypertension; F41.8 Other specified anxiety disorders; F31.9 Bipolar disorder, unspecified | CPT/HCPCS: 99282 ==

== ENCOUNTER 2023-12-18 10:20 | Emergency (ER) | payer OTHER, MEDICAID ==
[2023-12-18 11:04] LABS: #Basophils 0.1 thou/uL (0.0-0.2); #Eosinophils 0.5 thou/uL (0.0-0.7); #Monocytes 0.4 thou/uL (0.11-0.59); %Basophils 1.4 % (0.0-1.0); %Eosinophils 8.3 % (0.0-10.0); %Lymphocytes 33.4 % (21.0-51.0); %Neutrophils 50.9 % (42.0-75.0); Hemoglobin 12.9 g/dL (12.0-16.0); Mean Corpuscular HGB CONC 31.5 g/dL (32.0-36.0); Mean Corpuscular Hemoglobin 28.8 pg (27.0-31.0); Mean Corpuscular Volume 91.2 fl (78.0-98.0); Mean Platelet Volume 8.9 fL (7.4-10.4); Platelet Count 274 10x3/uL (130-400); RBC Distribution Width 11.8 % (11.5-14.5); White Blood Cell (WBC) Count 5.9 10x3/uL (4.8-10.8)
[2023-12-18] MEDS ORDERED: Acetaminophen 500 MG TAB ONE (11:06)
[2023-12-18] MEDS ORDERED: Aspirin Chewable 81 MG TAB ONE (11:07)
[2023-12-18 11:21] LABS: ALT (SGPT) 17 U/L (8-55); AST (SGOT) 19 U/L (5-34); Albumin 3.5 g/dL (3.5-5.0); Alkaline Phosphatase 80 U/L (40-110); Anion Gap 13 mmol/L (10-20); BUN (Urea Nitrogen) 9 mg/dL (9.8-20.1); Bilirubin, Total 0.7 mg/dL (0.2-1.2); Calc. Creatinine Clearance 0 mL/min (70-130); Carbon Dioxide 27 mmol/L (22-29); Chloride 106 mmol/L (98-107); Estimated GFR 83; Globulin 3.6 g/dL (2.4-3.5); Glucose 126 mg/dL (70-105); Potassium 3.2 mmol/L (3.5-5.1); Protein, Total 7.1 g/dL (6.0-8.3); Sodium 143 mmol/L (136-145); Troponin I Less than 0.010 ng/mL (< 0.028)
[2023-12-18] MEDS ORDERED: Amlodipine 5 MG TAB ONE (11:58)
[2023-12-18 14:49] LABS: Troponin I Less than 0.010 ng/mL (< 0.028)
== END 2023-12-18 15:15 | disposition home or self-care (01) ==
LOC: NAV ERS 10:20
DX: R07.89 Other chest pain (principal); R03.0 Elevated blood-pressure reading, without diagnosis of hypertension; B34.9 Viral infection, unspecified
CPT/HCPCS: 71046; 80053; 84484; 85025; 85379; 87428; 93005

== ENCOUNTER 2023-12-19 08:13 | Emergency (ER) | payer OTHER, MEDICAID ==
[2023-12-19] MEDS ORDERED: Amoxicillin/Potassium Clav 875 MG TAB ONE (08:42)
[2023-12-19] MEDS ORDERED: Ibuprofen 800 MG TAB ONE (08:42)
[2023-12-19] MEDS ORDERED: predniSONE 20 MG TAB ONE (08:43)
== END 2023-12-19 09:02 | disposition home or self-care (01) ==
LOC: NAV ERS 08:13
DX: J01.90 Acute sinusitis, unspecified (principal); I10 Essential (primary) hypertension; J06.9 Acute upper respiratory infection, unspecified; H66.92 Otitis media, unspecified, left ear; B20 Human immunodeficiency virus [HIV] disease; Z79.82 Long term (current) use of aspirin
CPT/HCPCS: 99283; J7512

== ENCOUNTER 2024-01-06 12:16 | Emergency (ER) | payer OTHER, MEDICAID | END 2024-01-06 13:57 | disposition home or self-care (01) | LOC: NAV ERS 12:16 | DX: M94.0 Chondrocostal junction syndrome [Tietze] (principal) | CPT/HCPCS: 93005; 99283 ==

== ENCOUNTER 2024-01-14 15:43 | Emergency (ER) | payer OTHER, MEDICAID | END 2024-01-14 16:56 | disposition home or self-care (01) | LOC: NAV ERS 15:43 | DX: J06.9 Acute upper respiratory infection, unspecified (principal); B20 Human immunodeficiency virus [HIV] disease | CPT/HCPCS: 87428; 99283 ==

== ENCOUNTER 2024-01-15 07:24 | Emergency (ER) | payer OTHER, MEDICAID ==
[2024-01-15] MEDS ORDERED: hydrOXYzine 25 MG TAB ONE (08:28)
[2024-01-15] MEDS ORDERED: Ibuprofen 200 MG TAB ONE (08:28)
== END 2024-01-15 09:28 | disposition home or self-care (01) ==
LOC: NAV ERS 07:24
DX: M25.551 Pain in right hip (principal); M54.50 Low back pain, unspecified
CPT/HCPCS: 72100; 99283

== ENCOUNTER 2024-01-20 11:38 | Emergency (ER) | payer OTHER, MEDICAID ==
[2024-01-20] MEDS ORDERED: Ketorolac Tromethamine 60 MG/2 ML VIAL ONE (12:36)
== END 2024-01-20 13:00 | disposition home or self-care (01) ==
LOC: NAV ERS 11:38
DX: G89.4 Chronic pain syndrome (principal); F31.9 Bipolar disorder, unspecified
CPT/HCPCS: 96372; 99283; J1885

== ENCOUNTER 2024-02-05 13:38 | Emergency (ER) | payer OTHER, MEDICAID | END 2024-02-05 14:09 | disposition home or self-care (01) | LOC: NAV ERS 13:38 | DX: R51.9 Headache, unspecified (principal) | CPT/HCPCS: 96372; 99283 ==

== ENCOUNTER 2024-02-07 06:21 | Emergency (ER) | payer OTHER, MEDICAID ==
[2024-02-07] MEDS ORDERED: diphenhydrAMINE 50 MG/ML VIAL ONE (06:32)
[2024-02-07] MEDS ORDERED: Metoclopramide HCl 10 MG (2 mL) VIAL ONE (06:33)
[2024-02-07] MEDS ORDERED: Sodium Chloride 0.9% 1,000 ML ONE (06:33)
[2024-02-07] MEDS ORDERED: Sodium Chloride 0.9% 100 ML ONE (06:33)
[2024-02-07] MEDS ORDERED: Dexamethasone 10 MG/ML VIAL ONE (06:33)
[2024-02-07 06:40] LABS: Hematocrit 43.7 % (36.0-47.0); Hemoglobin 14.1 g/dL (12.0-16.0); Red Blood Cell (RBC) Count 4.82 mill/uL (4.20-5.40)
[2024-02-07 06:41] LABS: #Basophils 0.1 thou/uL (0.0-0.2); #Lymphocytes 1.4 thou/uL (1.20-3.40); #Monocytes 0.5 thou/uL (0.11-0.59); %Basophils 0.5 % (0.0-1.0); %Lymphocytes 10.9 % (21.0-51.0); %Monocytes 3.9 % (0.0-10.0); %Neutrophils 84.6 % (42.0-75.0); Manual Diff?? NO; Mean Corpuscular HGB CONC 32.3 g/dL (32.0-36.0); Mean Corpuscular Hemoglobin 29.2 pg (27.0-31.0); Mean Corpuscular Volume 90.6 fl (78.0-98.0); Mean Platelet Volume 9.6 fL (7.4-10.4); Platelet Count 269 10x3/uL (130-400); RBC Distribution Width 12.1 % (11.5-14.5)
[2024-02-07] MEDS ORDERED: Acetaminophen 500 MG TAB ONE (06:49)
[2024-02-07 06:55] LABS: ALT (SGPT) 24 U/L (8-55); AST (SGOT) 10 U/L (5-34); Albumin 3.5 g/dL (3.5-5.0); Alkaline Phosphatase 121 U/L (40-110); Anion Gap 13 mmol/L (10-20); BUN (Urea Nitrogen) 32 mg/dL (9.8-20.1); Bilirubin, Total 0.7 mg/dL (0.2-1.2); Calc. Creatinine Clearance 0 mL/min (70-130); Calcium 9.3 mg/dL (7.8-10.44); Carbon Dioxide 24 mmol/L (22-29); Chloride 103 mmol/L (98-107); Estimated GFR 48; Globulin 4.3 g/dL (2.4-3.5); Potassium 4.4 mmol/L (3.5-5.1); Protein, Total 7.8 g/dL (6.0-8.3); Sodium 136 mmol/L (136-145)
[2024-02-07 07:01] LABS: Glucose 459 mg/dL (70-105)
[2024-02-07 07:45] LABS: Troponin I Less than 0.010 ng/mL (< 0.028)
[2024-02-07 07:53] LABS: Base Excess-Venous 2.8 mmol/L (-2.0 to 3.0); Bicarbonate (HCO3v) 27.1 mmol/L (22.0-28.0); CO2 Tension (PvCO2) 39.4 mmHg (42.0-51.0); Calcium, Ionized 1.13 mmol/L (1.15-1.33); Chloride 101 mmol/L (98-107); Hemoglobin - Calc 14.5 g/dL (12.0-16.0); Potassium 4.7 mmol/L (3.5-5.1); Sodium 136 mmol/L (138-145); T. Carbon Dioxide 28.3 mmol/L (22.0-28.0)
[2024-02-07 10:43] LABS: Bilirubin Negative (Negative); Blood, Urine Trace (Negative); Clarity Clear (Clear); Glucose, Urine (Dipstick) 500 mg/dL (Negative); Ketone, Urine Negative (Negative); Leukocyte Negative (Negative); Nitrite Negative (Negative); Protein, Urine (Dipstick) Negative (Neg-Trace); Urobilinogen 0.2 mg/dL (Less than 2); pH, Urine 6.5 (5.0-9.0)
[2024-02-07 10:44] LABS: RBC/HPF 0-3 HPF (0-3); Squamous Epithelial 0-3 HPF (0-3)
[2024-02-07 12:57] LABS: Hemoglobin A1c 7.3 % (4.0-6.0)
== END 2024-02-07 11:30 | disposition home or self-care (01) ==
LOC: NAV ERS 06:21
DX: R73.9 Hyperglycemia, unspecified (principal); R51.9 Headache, unspecified; B20 Human immunodeficiency virus [HIV] disease
CPT/HCPCS: 36415; 36416; 70450; 80053; 81001; 82010; 82330; 82803; 83036; 83605; 83690; 84484; 85025; 96365; 96375; J1100; J1200; J2765; J7030

== ENCOUNTER 2024-03-09 15:01 | Emergency (ER) | payer OTHER, MEDICAID ==
[2024-03-09] MEDS ORDERED: Ketorolac Tromethamine 60 MG/2 ML VIAL ONE (15:25)
== END 2024-03-09 15:56 | disposition home or self-care (01) ==
LOC: NAV ERS 15:01
DX: R10.9 Unspecified abdominal pain (principal); B20 Human immunodeficiency virus [HIV] disease; Z55.6 Problems related to health literacy; Z79.899 Other long term (current) drug therapy
CPT/HCPCS: 96372; 99283; J1885

== ENCOUNTER 2024-03-13 21:47 | Emergency (ER) | payer OTHER, MEDICAID ==
[2024-03-13] MEDS ORDERED: Benzonatate 100 MG CAP ONE (22:17)
== END 2024-03-13 22:28 | disposition home or self-care (01) ==
LOC: NAV ERS 21:47
DX: J06.9 Acute upper respiratory infection, unspecified (principal)
CPT/HCPCS: 99283

== ENCOUNTER 2024-04-02 16:52 | Emergency (ER) | payer OTHER, MEDICAID | END 2024-04-02 17:28 | disposition home or self-care (01) | LOC: NAV ERS 16:52 | DX: M54.6 Pain in thoracic spine (principal) | CPT/HCPCS: 99283 ==

== ENCOUNTER 2024-05-02 22:51 | Emergency (ER) | payer OTHER, MEDICAID ==
[2024-05-02] MEDS ORDERED: Bacitracin 1 PK ONE (23:14)
[2024-05-02] MEDS ORDERED: Ondansetron ODT 4 MG TAB ONE (23:15)
== END 2024-05-02 23:25 | disposition home or self-care (01) ==
LOC: NAV ERS 22:51
DX: R21 Rash and other nonspecific skin eruption (principal); R11.0 Nausea
CPT/HCPCS: 99283; Q0162

== ENCOUNTER 2024-05-09 18:04 | Emergency (ER) | payer OTHER, MEDICAID | END 2024-05-09 19:15 | disposition home or self-care (01) | LOC: NAV ERS 18:04 | DX: H92.03 Otalgia, bilateral (principal); H91.93 Unspecified hearing loss, bilateral; R29.700 NIHSS score 0 | CPT/HCPCS: 99282 ==

== ENCOUNTER → 2024-05-15 | Emergency (ER) | payer OTHER, MEDICAID ==
[~2024-05-15] MED LIST changes: -Iopamidol 370 76% 100 ML VIAL ONE; +Lidocaine Viscous Sol 2% 15 ml UD Cup ONE; +Mag-Al Plus 1200/1200/120 MG (30 mL) UDCUP ONE
== END ==
LOC: NAV ERS 19:14
DX: R10.12 Left upper quadrant pain (principal); R07.9 Chest pain, unspecified
CPT/HCPCS: 93005; 99284

== ENCOUNTER 2024-06-04 19:12 | Emergency (ER) | payer OTHER, MEDICAID | END 2024-06-04 19:33 | disposition home or self-care (01) | LOC: NAV ERS 19:12 | DX: S80.861A Insect bite (nonvenomous), right lower leg, initial encounter (principal); W57.XXXA Bitten or stung by nonvenomous insect and other nonvenomous arthropods, initial encounter | CPT/HCPCS: 99283 ==

== ENCOUNTER 2024-10-06 09:40 | Emergency (ER) | payer OTHER | END 2024-10-06 10:38 | disposition home or self-care (01) | LOC: NAV ERS 09:40 | DX: J01.10 Acute frontal sinusitis, unspecified (principal); R29.700 NIHSS score 0; B20 Human immunodeficiency virus [HIV] disease; Z79.899 Other long term (current) drug therapy | CPT/HCPCS: 99283 ==

== ENCOUNTER 2024-10-09 00:08 | Emergency (ER) | payer OTHER, MEDICAID | END 2024-10-09 00:31 | disposition home or self-care (01) | LOC: NAV ERS 00:08 | DX: R07.9 Chest pain, unspecified (principal); B20 Human immunodeficiency virus [HIV] disease; Z79.899 Other long term (current) drug therapy | CPT/HCPCS: 99284 ==

== ENCOUNTER 2024-11-13 21:01 | Emergency (ER) | payer OTHER, MEDICAID ==
[2024-11-13] MEDS ORDERED: Naproxen 500 MG TAB ONE (21:27)
[2024-11-13 21:43] LABS: Glucose, Urine (Dipstick) Negative (Negative); Leukocyte Negative (Negative); Protein, Urine (Dipstick) Negative (Neg-Trace); Specific Gravity, Urine 1.020 (1.005-1.030)
[2024-11-13 21:44] LABS: #Basophils 0.2 thou/uL (0.0-0.2); #Eosinophils 0.4 thou/uL (0.0-0.7); #Lymphocytes 2.1 thou/uL (1.20-3.40); #Monocytes 0.5 thou/uL (0.11-0.59); #Neutrophils 5.7 thou/uL (1.40-6.50); %Basophils 1.8 % (0.0-1.0); %Eosinophils 4.2 % (0.0-10.0); %Lymphocytes 23.8 % (21.0-51.0); %Monocytes 6.0 % (0.0-10.0); %Neutrophils 64.1 % (42.0-75.0); Hematocrit 37.5 % (36.0-47.0); Hemoglobin 12.3 g/dL (12.0-16.0); Mean Corpuscular Hemoglobin 29.0 pg (27.0-31.0); Mean Corpuscular Volume 88.2 fl (78.0-98.0); Platelet Count 256 10x3/uL (130-400); Red Blood Cell (RBC) Count 4.25 mill/uL (4.20-5.40); White Blood Cell (WBC) Count 8.9 10x3/uL (4.8-10.8)
[2024-11-13 21:45] LABS: Bacteria/HPF None Seen HPF (None Seen); CAUTI Indications for Culture Dysuria,urgency,freq; RBC/HPF None Seen HPF (0-3); WBC/HPF None Seen HPF (0-3)
[2024-11-13 21:46] LABS: Urine Culture Reflex No No
[2024-11-13 21:58] LABS: ALT (SGPT) 14 U/L (Less than 34); AST (SGOT) 23 U/L (11-34); Albumin 4.2 g/dL (3.1-4.5); Alkaline Phosphatase 95 U/L (40-110); Anion Gap 14 mmol/L (10-20); BUN (Urea Nitrogen) 12 mg/dL (9.8-20.1); Bilirubin, Total 0.6 mg/dL (0.3-1.2); Calc. Creatinine Clearance 0 mL/min (70-130); Calcium 9.3 mg/dL (7.8-10.44); Carbon Dioxide 26 mmol/L (22-29); Chloride 104 mmol/L (98-107); Globulin 3.6 g/dL (2.4-3.5); Glucose 137 mg/dL (70-105); Potassium 3.4 mmol/L (3.5-5.1); Sodium 141 mmol/L (136-145)
== END 2024-11-13 22:22 | disposition home or self-care (01) ==
LOC: NAV ERS 21:01
DX: M79.10 Myalgia, unspecified site (principal); I10 Essential (primary) hypertension
CPT/HCPCS: 80053; 81001; 85025; 87426; 99283

== ENCOUNTER 2024-12-07 18:46 | Emergency (ER) | payer OTHER, MEDICAID ==
[2024-12-07] MEDS ORDERED: cloNIDine 0.1 MG TAB ONE (19:31)
== END 2024-12-07 20:35 | disposition home or self-care (01) ==
LOC: NAV ERS 18:46
DX: H11.32 Conjunctival hemorrhage, left eye (principal); I10 Essential (primary) hypertension
CPT/HCPCS: 99283

== ENCOUNTER 2024-12-28 09:35 | Emergency (ER) | payer OTHER, MEDICAID ==
[2024-12-28 10:47] LABS: Glucose, Urine (Dipstick) Negative (Negative); Leukocyte Large (Negative); Protein, Urine (Dipstick) Negative (Neg-Trace); Specific Gravity, Urine 1.020 (1.005-1.030)
[2024-12-28 10:48] LABS: Bacteria/HPF 1+ HPF (None Seen); CAUTI Indications for Culture Dysuria,urgency,freq; RBC/HPF 0-3 HPF (0-3)
[2024-12-28 10:49] LABS: Urine Culture Reflex Yes Yes
[2024-12-28 23:39] LABS: Chlam.trachomatis by PCR,Urine Not Detected (NotDetected); GC N.gonorrhoeae PCR,UrineVOID Not Detected (NotDetected)
== END 2024-12-28 11:12 | disposition home or self-care (01) ==
LOC: NAV ERS 09:35
DX: N39.0 Urinary tract infection, site not specified (principal)
CPT/HCPCS: 81001; 87077; 87086; 87186; 87491; 87591; 99283

== ENCOUNTER 2025-01-03 16:52 | Emergency (ER) | payer OTHER, MEDICAID ==
[2025-01-03 17:29] LABS: Glucose, Urine (Dipstick) Negative (Negative); Leukocyte Negative (Negative); Protein, Urine (Dipstick) Negative (Neg-Trace); Specific Gravity, Urine 1.015 (1.005-1.030)
[2025-01-03] MEDS ORDERED: Acetaminophen 500 MG TAB ONE (17:35)
[2025-01-03 17:39] LABS: CAUTI Indications for Culture Pelvic or flank pain; RBC/HPF 0-3 HPF (0-3); WBC/HPF 0-3 HPF (0-3); Yeast-Budding Rare HPF (None Seen)
[2025-01-03 17:40] LABS: Urine Culture Reflex No No
[2025-01-03] MEDS ORDERED: Fluconazole 100 MG TAB ONE (18:08)
== END 2025-01-03 18:35 | disposition home or self-care (01) ==
LOC: NAV ERS 16:52
DX: R10.A1 Flank pain, right side (principal); B37.31 Acute candidiasis of vulva and vagina; S09.90XA Unspecified injury of head, initial encounter; B20 Human immunodeficiency virus [HIV] disease; X58.XXXA Exposure to other specified factors, initial encounter
CPT/HCPCS: 81001; 99283

== ENCOUNTER 2025-01-19 21:40 | Emergency (ER) | payer OTHER, MEDICAID ==
[2025-01-19] MEDS ORDERED: Bacitracin 1 PK ONE (22:10)
== END 2025-01-19 22:12 | disposition home or self-care (01) ==
LOC: NAV ERS 21:40
DX: S30.860A Insect bite (nonvenomous) of lower back and pelvis, initial encounter (principal); B20 Human immunodeficiency virus [HIV] disease; W57.XXXA Bitten or stung by nonvenomous insect and other nonvenomous arthropods, initial encounter
CPT/HCPCS: 99281

== ENCOUNTER 2025-02-05 18:43 | Emergency (ER) | payer OTHER ==
[2025-02-05] MEDS ORDERED: Ondansetron PF 4 MG/2 ML Vial ONE (19:12)
[2025-02-05] MEDS ORDERED: Pantoprazole 40 MG VIAL ONE (19:12)
[2025-02-05 19:20] LABS: #Basophils 0.1 thou/uL (0.0-0.2); #Eosinophils 0.2 thou/uL (0.0-0.7); #Lymphocytes 2.7 thou/uL (1.20-3.40); #Monocytes 0.5 thou/uL (0.11-0.59); #Neutrophils 3.7 thou/uL (1.40-6.50); %Basophils 1.2 % (0.0-1.0); %Eosinophils 3.3 % (0.0-10.0); %Lymphocytes 37.4 % (21.0-51.0); %Monocytes 7.3 % (0.0-10.0); %Neutrophils 50.8 % (42.0-75.0); Hematocrit 37.8 % (36.0-47.0); Hemoglobin 12.7 g/dL (12.0-16.0); Mean Corpuscular Hemoglobin 29.8 pg (27.0-31.0); Mean Corpuscular Volume 88.5 fl (78.0-98.0); Platelet Count 267 10x3/uL (130-400); Red Blood Cell (RBC) Count 4.27 mill/uL (4.20-5.40); White Blood Cell (WBC) Count 7.2 10x3/uL (4.8-10.8)
[2025-02-05 19:35] LABS: ALT (SGPT) 18 U/L (Less than 34); AST (SGOT) 21 U/L (11-34); Albumin 4.1 g/dL (3.1-4.5); Alkaline Phosphatase 100 U/L (40-110); Anion Gap 14 mmol/L (10-20); BUN (Urea Nitrogen) 14 mg/dL (9.8-20.1); Bilirubin, Total 0.5 mg/dL (0.3-1.2); Calc. Creatinine Clearance 0 mL/min (70-130); Calcium 9.0 mg/dL (7.8-10.44); Carbon Dioxide 27 mmol/L (22-29); Chloride 103 mmol/L (98-107); Globulin 3.3 g/dL (2.4-3.5); Glucose 112 mg/dL (70-105); Lipase 28 U/L (8-78); Potassium 3.8 mmol/L (3.5-5.1); Sodium 140 mmol/L (136-145); Troponin I Less than 0.010 ng/mL (< 0.028)
[2025-02-05] MEDS ORDERED: Sucralfate 1 GM TAB ONE (19:59)
[2025-02-05] MEDS ORDERED: Mag-Al Plus 1200/1200/120 MG (30 mL) UDCUP ONE (19:59)
[2025-02-05 20:03] LABS: Glucose, Urine (Dipstick) Negative (Negative); Leukocyte Negative (Negative); Protein, Urine (Dipstick) Negative (Neg-Trace); RBC/HPF 0-3 HPF (0-3); Specific Gravity, Urine Less/Equal 1.005 (1.005-1.030)
== END 2025-02-05 20:22 | disposition home or self-care (01) ==
LOC: NAV ERS 18:43
DX: K29.00 Acute gastritis without bleeding (principal)
CPT/HCPCS: 71045; 80053; 81001; 83690; 84484; 85025; 96361; 96374; 96375; J2270; J2405; J2470; J7030